=== PATIENT | female | born 1940 | race Caucasian/White ===

== ENCOUNTER 2020-05-24 09:13 | Outpatient (REF) | payer MEDICARE, SELFPAY ==
[2020-05-24 10:49] LABS: Estimated Average Glucose 160 mg/dL; Hemoglobin A1c % 7.2 %
== END 2020-05-24 09:14 | disposition home or self-care (01) ==
LOC: HO.10HDL 09:13
PROVIDERS: Absent Provider Internal Medicine; PCP Internal Medicine; Visit Provider Pediatrics
DX: E10.42 Type 1 diabetes mellitus with diabetic polyneuropathy (principal)
CPT/HCPCS: 83036

== ENCOUNTER 2020-08-25 11:15 | Outpatient (REF) | payer MEDICARE, SELFPAY ==
[2020-08-25 14:23] LABS: Estimated Average Glucose 174 mg/dL; Hemoglobin A1c % 7.7 %
== END 2020-08-25 11:16 | disposition home or self-care (01) ==
LOC: HO.10HDLR 11:15
PROVIDERS: Absent Provider Internal Medicine; Visit Provider Pediatrics
DX: E10.42 Type 1 diabetes mellitus with diabetic polyneuropathy (principal)
CPT/HCPCS: 36415; 83036

== ENCOUNTER 2020-11-23 11:37 | Outpatient (REF) | payer MEDICARE, SELFPAY ==
[2020-11-23 14:43] LABS: Estimated Average Glucose 163 mg/dL; Hemoglobin A1c % 7.3 %
== END 2020-11-23 11:38 | disposition home or self-care (01) ==
LOC: HO.10HDL 11:37
PROVIDERS: Visit Provider Pediatrics
DX: E10.42 Type 1 diabetes mellitus with diabetic polyneuropathy (principal)
CPT/HCPCS: 36415; 83036

== ENCOUNTER 2021-02-24 08:48 | Outpatient (RCR) | payer MEDICARE, SELFPAY | END 2021-03-08 15:09 | disposition home or self-care (01) | LOC: HO.WCC 08:48 | PROVIDERS: Visit Provider Surgery | DX: S81.811D Laceration without foreign body, right lower leg, subsequent encounter (principal) | CPT/HCPCS: 99213 ==

== ENCOUNTER 2021-02-24 14:26 | Outpatient (REF) | payer MEDICARE, SELFPAY ==
[2021-02-24 15:06] LABS: Estimated Average Glucose 166 mg/dL; Hemoglobin A1c % 7.4 %
== END 2021-02-24 14:27 | disposition home or self-care (01) ==
LOC: HO.LAB 14:26
PROVIDERS: Absent Provider Internal Medicine; PCP Internal Medicine; Visit Provider Pediatrics
DX: E10.42 Type 1 diabetes mellitus with diabetic polyneuropathy (principal)
CPT/HCPCS: 36415; 83036

== ENCOUNTER 2021-04-01 11:25 | Outpatient (REF) | payer MEDICARE, SELFPAY ==
--- NOTE | ~2021-04-01 | MM_ITS ---
EXAMINATION: MM SCREENING DIGITAL BREAST TOMOSYNTHESIS, BILATERAL CLINICAL INFORMATION: Screening. Asymptomatic. The lifetime risk of breast cancer based on the Tyrer-Cuzick Model is under 2%. COMPARISON: Mammography: 11/19/2018, 10/31/2017, 10/17/2016 TECHNIQUE: Digital breast tomosynthesis is performed in both the craniocaudal and mediolateral oblique views along with computer-aided detection (CAD). Synthesized 2D images are generated from the tomosynthesis. FINDINGS: There are scattered areas of fibroglandular density (ACR BI-RADS breast composition Category b). There are no significant masses, abnormal calcifications, or other abnormalities. Parenchymal pattern is similar to prior studies. No developing density. The axilla are unremarkable. MM/MM tomosynthesis screening BI IMPRESSION: No mammographic evidence of malignancy. ASSESSMENT: BI-RADS 1: Negative RECOMMENDATION: Routine annual mammography screening. This patient's information was entered into a reminder system with a target due date for their next mammogram.
== END 2021-04-01 11:26 | disposition home or self-care (01) ==
LOC: HO.MAMMO 11:25
PROVIDERS: Visit Provider Internal Medicine
DX: Z12.31 Encounter for screening mammogram for malignant neoplasm of breast (principal)
CPT/HCPCS: 77063; 77067

== ENCOUNTER 2021-05-19 07:31 | Outpatient (REF) | payer MEDICARE, SELFPAY ==
[2021-05-19 09:59] LABS: MANUAL DIFF FLAG NO
[2021-05-19 10:11] LABS: Basophils Absolute Auto 0.1 X10*3/uL (0.0-0.2); Basophils Percent Auto 1.3 % (0-2); Eosinophils Absolute Auto 0.2 X10*3/uL (0.0-0.4); Hematocrit 41.3 % (37-47); Hemoglobin 13.6 g/dl (12.0-16.0); Imm Gran Abs Auto 0.01 X10*3/uL (0.00-0.03); Imm Gran Pct Auto 0.3 % (0.0-0.4); Lymphocytes Percent Auto 27.4 % (20-40); Mean Corpuscular HGB Conc 32.9 g/dl (31.0-35.0); Mean Corpuscular Hemoglobin 31.3 pg (27.0-33.0); Mean Corpuscular Volume 95.2 fL (80-98); Mean Platelet Volume 10.7 fL (9.4-12.3); Monocytes Absolute Auto 0.5 X10*3/uL (0.1-1.2); Monocytes Percent Auto 12.4 % (2-11); Neutrophils Percent Auto 54.6 % (45-73); Platelet Count 171 X10*3/uL (160-400); Red Blood Count 4.34 X10*6/uL (4.20-5.50); Red Cell Distribution Width 11.9 % (11.0-16.0); White Blood Count 3.7 X10*3/uL (4.8-10.8)
[2021-05-19 10:12] LABS: Appearance Urine CLOUDY; Color Urine YELLOW; Glucose Urine UA NEG (NEG); Leukocyte Esterase Urine 1+ (NEG); Nitrite Urine NEG (NEG); PH 5.5 (5.0-8.0); Specific Gravity - Urine >= 1.030 (1.005-1.025); Urine Blood NEG (NEG); Urine Ketones NEG (NEG); Urine Protein NEG (NEG-TRACE)
[2021-05-19 10:30] LABS: Cholesterol 202 mg/dL; HDL Cholesterol 86 mg/dL; LDL Cholesterol Calculated 107 mg/dl; Triglycerides 48 mg/dL
[2021-05-19 10:41] LABS: Amorphous Sediment Urine 3+ /LPF; RBC Urine 0 /HPF (0); Squamous Epithelial Cell Urine 1+ /LPF
[2021-05-19 10:46] LABS: Creatinine Urine 213.43 mg/dL; Microalbum/Creatinine Ratio Ur 10.3 ug/mg cr
[2021-05-19 10:48] LABS: Thyroid Stimulating Hormone 3.54 uIU/mL (0.32-4.0); Vitamin D 25-OH Total 50.8 ng/mL (>30)
== END 2021-05-19 07:32 | disposition home or self-care (01) ==
LOC: HO.10HDL 07:31
PROVIDERS: Visit Provider Internal Medicine
DX: E10.9 Type 1 diabetes mellitus without complications (principal); K58.0 Irritable bowel syndrome with diarrhea
CPT/HCPCS: 36415; 80061; 81001; 82043; 82306; 84443; 85025

== ENCOUNTER 2021-05-25 13:51 | Outpatient (REF) | payer MEDICARE, SELFPAY ==
--- NOTE | 2021-05-26 15:12 | MHC.AU.ANO ---
Adult Audiological Evaluation Date of Visit: 05/25/21 [facility] Hand Used: Not Applicable Reason for Appointment: Audiologic re-evaluation to monitor hearing levels due to increased risk of progressive hearing loss related to Diabetes. Marylou also reports a new symptom of tinnitus which started in July 2020 following her 's passing. Has hearing been tested previously?: Yes Previous Hearing Test Results: 02/05/2019 [facility] Normal hearing thresholds at 250-1000 Hz, sloping to a moderate high frequency sensorineural hearing loss bilaterally with 92% speech understanding for the right ear at 60 dB HL and 96% for the left ear at 55 dB HL. Ear History: Bothersome Tinnitus/Ringing/Noises in Ears: Is perceived more in the head rather than specific ear(s). Medical History: Medical History: Diabetes, Irritable Bowel Syndrome Medication List: Novolog, Aspirin, Rosuvastatin Calcium, Psyllium, Vitamin D, Lutein-Zeaxanthin, Lorazepam (as needed) Otoscopy: Right Ear: Unremarkable Left Ear: Unremarkable Tympanometry: Tympanometry performed due to: To assess integrity of the middle ear system Right Ear: Normal Middle Ear System (Type A) Left Ear: Normal Middle Ear System (Type A) Otoacoustic Emissions Not performed at today's visit due to history of sensorineural hearing loss. Hearing Evaluation: Transducer(s) Used: Insert Earphones Bone Conduction Method: Conventional Audiometry Stimuli Used: Pure Tones Right Ear: Description of Hearing: Normal hearing thresholds at 250-1000 Hz, sloping to a moderately-severe high frequency sensorineural hearing loss. The right ear thresholds are 5-20 dB poorer than the left at 5996-2057 Hz. Left Ear: Description of Hearing: Normal hearing levels at 250-1000 Hz, sloping to a moderately-severe sensorineural hearing loss. Speech Recognition Threshold (SRT): Method Used: Monitored Live Voice Stimuli Used: Spondee Words Right Ear: 15 dB HL Left Ear: 10 dB HL Word Discrimination: Method: Recorded Lists Word Lists Used: NU-6 Right Ear: 92% at 55 dB HL Left Ear: 92% at 50 dB HL Comparison: Compared to most recent evaluation: Overall hearing thresholds for both ears have decreased 5-15 dB with stable speech discrimination ability bilaterally. Interpretation of Results: The new symptom of tinnitus is likely related to the combination of Marylou' stress since her 's passing and the increase in hearing loss. Discussed the theories of tinnitus. Marylou reports she is aware of the tinnitus, but it is not bothersome for her. Discussed hearing aids may reduce the perception of the tinnitus during the day when wearing them, but will not help when the aids are out of the ears at night. At this time, Marylou is not interested in trying hearing aids. Recommendations: Audiological re-evaluation in one year or sooner if hearing problems or tinnitus increase. Will send a reminder card. Diagnosis: Primary Diagnosis: H90.3 Bilateral Sensorineural Hearing Loss Secondary Diagnosis: H93.19 Tinnitus, Unspecified Ear Services Performed: Comprehensive Audiological Evaluation (CPT 70009) Tympanometry (CPT 11322) Signature: Provider: Ilia Duran, CCC-A
== END 2021-05-25 13:52 | disposition home or self-care (01) ==
LOC: HO.SH 13:51
PROVIDERS: Visit Provider Internal Medicine
DX: H90.3 Sensorineural hearing loss, bilateral (principal); H93.19 Tinnitus, unspecified ear
CPT/HCPCS: 92557; 92567

== ENCOUNTER 2021-11-29 12:17 | Outpatient (REF) | payer MEDICARE, SELFPAY ==
[2021-11-29 13:08] LABS: Estimated Average Glucose 169 mg/dL; Hemoglobin A1c % 7.5 %
== END 2021-11-29 12:18 | disposition home or self-care (01) ==
LOC: HO.LAB 12:17
PROVIDERS: Absent Provider Pediatrics; PCP Internal Medicine; Visit Provider Internal Medicine
DX: E10.9 Type 1 diabetes mellitus without complications (principal)
CPT/HCPCS: 36415; 83036

== ENCOUNTER 2022-02-20 13:42 | Emergency (ER) | payer MEDICARE, SELFPAY ==
--- NOTE | ~2022-02-20 | XR_ITS ---
EXAMINATION: XR CHEST CLINICAL INFORMATION: Cough, COVID. COMPARISON: 12/28/2017 chest and rib radiographs. TECHNIQUE: 2 views of the chest were obtained. FINDINGS: There is generalized hyperinflation, but the lungs are otherwise clear. There are no pleural effusions. The heart and mediastinal structures are unremarkable. XR/XR chest 2V IMPRESSION: No acute cardiopulmonary process.
[2022-02-20 15:26] VITALS: BP 151/76; PULSE 78; RESP 18; TEMP 37.6; O2SAT 99; BMI 21.9
[2022-02-20 15:45] LABS: MANUAL DIFF FLAG NO
[2022-02-20 15:48] LABS: Basophils Percent Auto 0.2 % (0-2); Hematocrit 41.4 % (37.0-47.0); Hemoglobin 13.9 g/dl (12.0-16.0); Imm Gran Abs Auto 0.02 X10*3/uL (0.00-0.03); Imm Gran Pct Auto 0.3 % (0.0-0.4); Lymphocytes Absolute Auto 0.9 X10*3/uL (1.2-4.9); Lymphocytes Percent Auto 15.2 % (20-40); Mean Corpuscular HGB Conc 33.6 g/dl (31.0-35.0); Mean Corpuscular Volume 92.4 fL (80.0-98.0); Mean Platelet Volume 10.1 fL (9.4-12.3); Monocytes Absolute Auto 0.8 X10*3/uL (0.1-1.2); Neutrophils Absolute Auto 4.3 x10*3/uL (2.0-8.3); Neutrophils Percent Auto 71.3 % (45-73); Platelet Count 126 X10*3/uL (160-400); Red Blood Count 4.48 X10*6/uL (4.20-5.50); Red Cell Distribution Width 12.2 % (11.0-16.0)
[2022-02-20 16:09] LABS: Alanine Aminotransferase 23 U/L (0-31); Albumin Level 4.1 g/dL (3.5-5.0); Alkaline Phosphatase 51 U/L (39-117); Anion Gap 15 (12-20); Aspartate Amino Transferase 28 U/L (5-31); Bilirubin Total 0.7 mg/dL (0.0-1.0); Blood Urea Nitrogen 18 mg/dL (9-16); Calcium 8.9 mg/dL (8.4-10.2); Carbon Dioxide 26 mmol/L (22-29); Chloride 99 mmol/L (96-108); Creatinine Clr Calc Pharmacy 40.5; Estimated Glomerular Filt Rate 57; Glucose Random 201 mg/dL (60-115); Potassium 4.5 mmol/L (3.3-5.1); Sodium 135 mmol/L (135-145); Total Protein 6.4 g/dL (6.5-8.0)
== END 2022-02-20 21:19 | disposition left against medical advice (07) ==
LOC: HO.ED 21:04
PROVIDERS: Emergency Provider Emergency Medicine; PCP Internal Medicine
DX: U07.1 COVID-19 (principal); Z79.899 Other long term (current) drug therapy
CPT/HCPCS: 36415; 71046; 80053; 85025; 99281; 99283

== ENCOUNTER 2022-03-07 14:23 | Outpatient (REF) | payer MEDICARE, SELFPAY ==
[2022-03-07 15:56] LABS: Estimated Average Glucose 163 mg/dL; Hemoglobin A1c % 7.3 %
== END 2022-03-07 14:24 | disposition home or self-care (01) ==
LOC: HO.LAB 14:23
PROVIDERS: Pediatrics; PCP Internal Medicine; Visit Provider Internal Medicine
DX: E10.9 Type 1 diabetes mellitus without complications (principal)
CPT/HCPCS: 36415; 83036

== ENCOUNTER 2022-04-07 11:20 | Outpatient (REF) | payer MEDICARE, SELFPAY ==
--- NOTE | ~2022-04-07 | MM_ITS ---
EXAMINATION: MM SCREENING DIGITAL BREAST TOMOSYNTHESIS, BILATERAL CLINICAL INFORMATION: Screening. Asymptomatic. The lifetime risk of breast cancer based on the Tyrer-Cuzick Model is 2%. COMPARISON: Mammography: 04/01/2021, 11/19/2018, 10/31/2017 TECHNIQUE: Digital breast tomosynthesis is performed in both the craniocaudal and mediolateral oblique views along with computer-aided detection (CAD). Synthesized 2D images are generated from the tomosynthesis. Additional right CC view is provided. FINDINGS: There are scattered areas of fibroglandular density (ACR BI-RADS breast composition Category b). There are no significant masses, abnormal calcifications, or other abnormalities. Parenchymal pattern is similar to prior studies. There is no developing density or architectural abnormality. The axilla and skin contours are unremarkable. No significant changes. MM/MM tomosynthesis screening BI IMPRESSION: No mammographic evidence of malignancy. ASSESSMENT: BI-RADS 1: Negative RECOMMENDATION: Routine annual mammography screening. This patient's information was entered into a reminder system with a target due date for their next mammogram.
--- NOTE | ~2022-04-07 | MM_ITS ---
EXAMINATION: BONE DENSITOMETRY CLINICAL INDICATION: Other specified disorders of bone density and structure. COMPARISON: Previous BD dated 08/20/2014 and baseline BD dated 12/25/2007. TECHNIQUE: Using a [employer] DXA System (software version: 13.1) manufactured by [employer], dual-energy x-ray absorptiometry was performed of the lumbar spine and left hip. The images are of good technical quality. Summary results are attached. FINDINGS: AP SPINE L1-L3 (excluding L4): The data of L1-L4 has been changed to exclude the L4 vertebral body, because degenerative changes at this level may cause overestimation of lumbar spine density. Current: BMD 0.819 g/cm2, Z-score -0.9, T-score -2.9, osteoporosis, 10.2% decrease from previous, 16.3% decrease from baseline (<5% change is not significant). Prior: BMD 0.912 g/cm2. Baseline: BMD 0.979 g/cm2. LEFT FEMUR, NECK: Current: BMD 0.727 g/cm2, Z-score 0.1, T-score -2.2, osteopenia. Prior: BMD 0.746 g/cm2. Baseline: BMD 0.792 g/cm2. LEFT FEMUR, TOTAL: Current: BMD 0.829 g/cm2, Z-score 0.8, T-score -1.4, osteopenia, 4.5% decrease from previous, 7.7% decrease from baseline (<5% change is not significant). Prior: BMD 0.868 g/cm2. Baseline: BMD 0.898 g/cm2. IDENTIFIED RISK FACTORS: Height loss, secondary osteoporosis, menopause. HISTORY OF FRACTURE: None listed. MEDICATIONS: Vitamin D. MM/XR DEXA axial skeleton IMPRESSION: 1. DIAGNOSIS: Osteoporosis based on the lowest T-score value of -2.9 in the lumbar spine applying World Health Organization criteria. 2. 10-YEAR FRACTURE RISK PREDICTION, FRAX: According to the guidelines, FRAX calculation should only be performed on patients in the osteopenia bone density category. Therefore, FRAX was not performed on this patient. 3. Treatment Recommendations: NOF guidelines recommend consideration for treatment in postmenopausal women and men age 50 and older presenting with the following: -A hip or vertebral (clinical or morphometric) fracture. -T-score less than or equal to -2.5 at the femoral neck or spine after appropriate evaluation to exclude secondary causes. -Low bone mass at the hip or spine and a 10-year fracture probability by FRAX of greater than or equal to 3% for hip fracture or greater than or equal to 20% for major osteoporotic fracture based on the [place] adapted WHO algorithm. 4. Other Recommendations: All treatment decisions require clinical judgment and consideration of individual patient factors, including patient preferences, comorbidities, previous drug use, risk factors not captured in the FRAX model (e.g. frailty, falls, vitamin D deficiency, increased bone turnover, interval significant decline in bone density) and possible under or overestimation of fracture risk by FRAX. Additional medical evaluation for secondary cause of low bone mineral density may be appropriate. FUTURE SCAN RECOMMENDATION: People with diagnosed cases of osteoporosis or at high risk for fracture should have regular bone mineral density tests. For patients eligible for Medicare, routine testing is allowed once every 2 years. The testing frequency can be increased to one year for patients who have rapidly progressing disease, those who are receiving or discontinuing medical therapy to restore bone mass, or have additional risk factors.
== END 2022-04-07 11:21 | disposition home or self-care (01) ==
LOC: HO.MAMMO 11:20
PROVIDERS: PCP Internal Medicine; Visit Provider Internal Medicine
DX: Z12.31 Encounter for screening mammogram for malignant neoplasm of breast (principal); Z13.820 Encounter for screening for osteoporosis; M85.88 Other specified disorders of bone density and structure, other site; Z78.0 Asymptomatic menopausal state
CPT/HCPCS: 77063; 77067; 77080

== ENCOUNTER → 2022-05-09 12:59 | Outpatient (BNVA) | payer MEDICARE, SELFPAY | PROVIDERS: PCP Internal Medicine; Visit Provider Internal Medicine Endocrinology, Diabetes & Metabolism | DX: M81.0 Age-related osteoporosis without current pathological fracture (principal) | CPT/HCPCS: 99202 ==

== ENCOUNTER 2022-06-08 08:06 | Outpatient (REF) | payer MEDICARE, SELFPAY ==
[2022-06-08 10:40] LABS: MANUAL DIFF FLAG NO
[2022-06-08 10:47] LABS: Basophils Absolute Auto 0.1 X10*3/uL (0.0-0.2); Basophils Percent Auto 1.2 % (0-2); Eosinophils Absolute Auto 0.1 X10*3/uL (0.0-0.4); Eosinophils Percent Auto 2.9 % (0-4); Hematocrit 43.2 % (37.0-47.0); Hemoglobin 14.2 g/dl (12.0-16.0); Imm Gran Abs Auto 0.01 X10*3/uL (0.00-0.03); Imm Gran Pct Auto 0.2 % (0.0-0.4); Lymphocytes Absolute Auto 1.4 X10*3/uL (1.2-4.9); Lymphocytes Percent Auto 32.5 % (20-40); Mean Corpuscular HGB Conc 32.9 g/dl (31.0-35.0); Mean Corpuscular Hemoglobin 31.1 pg (27.0-33.0); Mean Corpuscular Volume 94.7 fL (80.0-98.0); Mean Platelet Volume 10.2 fL (9.4-12.3); Monocytes Absolute Auto 0.5 X10*3/uL (0.1-1.2); Monocytes Percent Auto 11.5 % (2-11); Neutrophils Absolute Auto 2.2 x10*3/uL (2.0-8.3); Neutrophils Percent Auto 51.7 % (45-73); Platelet Count 183 X10*3/uL (160-400); Red Blood Count 4.56 X10*6/uL (4.20-5.50); Red Cell Distribution Width 12.2 % (11.0-16.0); White Blood Count 4.2 X10*3/uL (4.8-10.8)
[2022-06-08 10:54] LABS: Appearance Urine Clear; Color Urine Yellow; Glucose Urine UA Negative (Negative); Leukocyte Esterase Urine Moderate (2+) (Negative); Nitrite Urine Negative (Negative); Specific Gravity - Urine 1.025 (1.005-1.025); UMIC TRIGGER UA YES; Urine Blood Negative (Negative); Urine Ketones Trace mg/dL (Negative); Urine Protein Negative (Neg-Trace)
[2022-06-08 10:57] LABS: Bacteria Urine None Seen (None Seen); Hyaline Casts Urine 0-2 /LPF (0-2); RBC Urine 0-2 /HPF (0-2); WBC Urine 21-50 /HPF (0-5)
[2022-06-08 11:12] LABS: Creatinine Urine 202.26 mg/dL; Microalbum/Creatinine Ratio Ur 11.8 ug/mg cr
[2022-06-08 12:28] LABS: Estimated Average Glucose 151 mg/dL; Hemoglobin A1c % 6.9 %
[2022-06-08 14:16] LABS: Alanine Aminotransferase 20 U/L (0-31); Alkaline Phosphatase 57 U/L (39-117); Anion Gap 14 (12-20); Aspartate Amino Transferase 24 U/L (5-31); Bilirubin Total 0.7 mg/dL (0.0-1.0); Blood Urea Nitrogen 20 mg/dL (9-16); Carbon Dioxide 29 mmol/L (22-29); Chloride 103 mmol/L (96-108); Cholesterol 210 mg/dL; Estimated Glomerular Filt Rate 55; Glucose Fasting 159 mg/dL (60-99); HDL Cholesterol 85 mg/dL; LDL Cholesterol Calculated 113 mg/dl; Potassium 4.6 mmol/L (3.3-5.1); Sodium 141 mmol/L (135-145); Thyroid Stimulating Hormone 3.65 uIU/mL (0.32-4.0); Total Protein 6.2 g/dL (6.5-8.0); Triglycerides 60 mg/dL; Vitamin D 25-OH Total 58.9 ng/mL (>30)
== END 2022-06-08 08:07 | disposition home or self-care (01) ==
LOC: HO.10HDL 08:06
PROVIDERS: Absent Provider Pediatrics; Visit Provider Internal Medicine
DX: E10.9 Type 1 diabetes mellitus without complications (principal); K58.0 Irritable bowel syndrome with diarrhea; H91.93 Unspecified hearing loss, bilateral
CPT/HCPCS: 36415; 80053; 80061; 81001; 82043; 82306; 83036; 84443; 85025

== ENCOUNTER 2022-06-13 12:43 | Outpatient (REF) | payer MEDICARE, SELFPAY | END 2022-06-13 12:44 | disposition home or self-care (01) | LOC: HO.10HDLR 12:43 | PROVIDERS: Absent Provider Pediatrics; Visit Provider Internal Medicine | DX: Z13.89 Encounter for screening for other disorder (principal) ==

== ENCOUNTER 2022-08-09 13:56 | Outpatient (REF) | payer MEDICARE, SELFPAY | END 2022-08-09 13:57 | disposition home or self-care (01) | LOC: HO.SH 13:56 | PROVIDERS: Visit Provider Internal Medicine | DX: H90.3 Sensorineural hearing loss, bilateral (principal); H93.19 Tinnitus, unspecified ear | CPT/HCPCS: 92557; 92567 ==

== ENCOUNTER 2022-08-21 10:04 | Outpatient (REF) | payer MEDICARE, SELFPAY ==
[2022-08-21 11:08] LABS: Creatinine, mg/dL 94.84
[2022-08-21 12:24] LABS: Creatinine, 24Hr Urine 0.9 G/Day (1.0-2.0); Total Volume 24 Hour Urine 925 mL
[2022-08-23 19:48] LABS: Calcium, 24 Hr Urine 175 mg/24 h; Calcium/Creatinine Ratio 185 mg/g creat (30-275); Creatinine 24Hr Urine 0.94 g/24 h (0.50-2.15)
== END 2022-08-21 10:05 | disposition home or self-care (01) ==
LOC: HO.LNP 10:04
PROVIDERS: Visit Provider Internal Medicine Endocrinology, Diabetes & Metabolism
DX: M81.0 Age-related osteoporosis without current pathological fracture (principal)
CPT/HCPCS: 82340; 82570

== ENCOUNTER 2022-09-12 08:28 | Outpatient (REF) | payer MEDICARE, SELFPAY ==
[2022-09-12 11:01] LABS: Estimated Average Glucose 163 mg/dL; Hemoglobin A1c % 7.3 %
[2022-09-12 11:05] LABS: Phosphorus 3.7 mg/dL (2.7-4.5)
[2022-09-15 11:04] LABS: Prot Elec - Albumin 4.1 g/dL (3.8-4.8); Prot Elec - Alpha1 0.3 g/dL (0.2-0.3); Prot Elec - Alpha2 0.7 g/dL (0.5-0.9); Prot Elec - Beta 1 0.4 g/dL (0.4-0.6); Prot Elec - Beta 2 0.3 g/dL (0.2-0.5); Prot Elec - Gamma 0.7 g/dL (0.8-1.7); Prot Elec - Total Protein 6.4 g/dL (6.1-8.1)
== END 2022-09-12 08:29 | disposition home or self-care (01) ==
LOC: HO.10HDL 08:28
PROVIDERS: Absent Provider Internal Medicine; Referring Provider Pediatrics; Visit Provider Internal Medicine Endocrinology, Diabetes & Metabolism
DX: E10.9 Type 1 diabetes mellitus without complications (principal); M81.0 Age-related osteoporosis without current pathological fracture
CPT/HCPCS: 36415; 83036; 84100; 84165; 86335

== ENCOUNTER → 2022-09-13 09:18 | Outpatient (BNVA) | payer MEDICARE, SELFPAY | PROVIDERS: PCP Internal Medicine; Visit Provider Internal Medicine Endocrinology, Diabetes & Metabolism | DX: M81.0 Age-related osteoporosis without current pathological fracture (principal) | CPT/HCPCS: 99212 ==

== ENCOUNTER 2022-10-11 10:59 | Outpatient (REF) | payer MEDICARE, SELFPAY ==
--- NOTE | ~2022-10-11 | XR_ITS ---
EXAMINATION: XR CHEST CLINICAL INFORMATION: Fatigue, SOB, diabetes mellitus. COMPARISON: Chest 02/20/2022 TECHNIQUE: 2 views of the chest were obtained. FINDINGS: The lungs are well-expanded and clear. The heart size and pulmonary vascularity is normal. There is mild dextro scoliosis of dorsolumbar spine. No aggressive lytic or sclerotic process seen. XR/XR chest 2V IMPRESSION: Unremarkable chest exam..
[2022-10-11 11:09] LABS: MANUAL DIFF FLAG NO
[2022-10-11 12:01] LABS: Basophils Absolute Auto 0.1 X10*3/uL (0.0-0.2); Eosinophils Absolute Auto 0.1 X10*3/uL (0.0-0.4); Eosinophils Percent Auto 1.7 % (0-4); Hematocrit 43.6 % (37.0-47.0); Hemoglobin 14.3 g/dl (12.0-16.0); Imm Gran Abs Auto 0.01 X10*3/uL (0.00-0.03); Imm Gran Pct Auto 0.2 % (0.0-0.4); Lymphocytes Absolute Auto 1.3 X10*3/uL (1.2-4.9); Lymphocytes Percent Auto 25.4 % (20-40); Mean Corpuscular HGB Conc 32.8 g/dl (31.0-35.0); Mean Corpuscular Hemoglobin 31.1 pg (27.0-33.0); Mean Corpuscular Volume 94.8 fL (80.0-98.0); Mean Platelet Volume 10.6 fL (9.4-12.3); Monocytes Absolute Auto 0.5 X10*3/uL (0.1-1.2); Monocytes Percent Auto 9.9 % (2-11); Neutrophils Absolute Auto 3.2 x10*3/uL (2.0-8.3); Neutrophils Percent Auto 61.8 % (45-73); Platelet Count 206 X10*3/uL (160-400); Red Cell Distribution Width 12.1 % (11.0-16.0); White Blood Count 5.2 X10*3/uL (4.8-10.8)
[2022-10-11 13:09] LABS: Thyroid Stimulating Hormone 3.47 uIU/mL (0.32-4.0)
[2022-10-11 13:13] LABS: Anion Gap 13 (12-20)
[2022-10-11 13:17] LABS: Alanine Aminotransferase 24 U/L (0-31); Albumin Level 4.2 g/dL (3.5-5.0); Alkaline Phosphatase 75 U/L (39-117); Aspartate Amino Transferase 27 U/L (5-31); Bilirubin Total 0.9 mg/dL (0.0-1.0); Blood Urea Nitrogen 18 mg/dL (9-16); Calcium 9.3 mg/dL (8.4-10.2); Carbon Dioxide 28 mmol/L (22-29); Chloride 102 mmol/L (96-108); Estimated Glomerular Filt Rate 55; Glucose Random 246 mg/dL (60-115); Potassium 4.8 mmol/L (3.3-5.1); Sodium 138 mmol/L (135-145); Total Protein 6.4 g/dL (6.5-8.0)
== END 2022-10-11 11:00 | disposition home or self-care (01) ==
LOC: HO.XRAY 10:59
PROVIDERS: PCP Internal Medicine; Visit Provider Internal Medicine
DX: E10.9 Type 1 diabetes mellitus without complications (principal); R06.02 Shortness of breath; R53.83 Other fatigue; K58.0 Irritable bowel syndrome with diarrhea
CPT/HCPCS: 36415; 71046; 80053; 84443; 85025

== ENCOUNTER 2022-10-23 10:47 | Outpatient (REF) | payer MEDICARE, SELFPAY ==
--- NOTE | 2022-10-23 | PFT_ITS ---
FLOWS: 1. FEV1 97% of predicted at 1.81 L. 2. FVC 106% of predicted at 2.68 L. 3. FEV1 to FVC ratio of 0.68. 4. No bronchodilator response except in small to medium airways. LUNG VOLUMES: 1. Total lung capacity 100% of predicted at 5.09 L. 2. Residual volume 105% of predicted at 2.57 L. 3. Slow vital capacity 96% of predicted at 2.52 L. 4. Expiratory reserve volume 163% of predicted at 0.80 L. 5. Diffusion capacity is mildly decreased. IMPRESSION: Mild obstructive ventilatory defect with no bronchodilator response except in small to medium airways. Decreased diffusion capacity suggest emphysema. Fernandez Sparks MD AP/MODL / [id number]
== END 2022-10-23 10:48 | disposition home or self-care (01) ==
LOC: HO.RESP 10:47
PROVIDERS: PCP Internal Medicine; Visit Provider Internal Medicine
DX: R06.02 Shortness of breath (principal); R53.83 Other fatigue
CPT/HCPCS: 94060; 94727; 94729

== ENCOUNTER 2022-12-11 12:04 | Outpatient (REF) | payer MEDICARE, SELFPAY ==
[2022-12-11 13:41] LABS: Estimated Average Glucose 157 mg/dL; Hemoglobin A1c % 7.1 %
== END 2022-12-11 12:05 | disposition home or self-care (01) ==
LOC: HO.10HDL 12:04
PROVIDERS: Visit Provider Internal Medicine
DX: E10.9 Type 1 diabetes mellitus without complications (principal)
CPT/HCPCS: 36415; 83036

== ENCOUNTER 2023-03-14 09:48 | Outpatient (REF) | payer MEDICARE, SELFPAY ==
[2023-03-14 11:18] LABS: Estimated Average Glucose 146 mg/dL; Hemoglobin A1c % 6.7 % (<6.0)
== END 2023-03-14 09:49 | disposition home or self-care (01) ==
LOC: HO.LAB 09:48
PROVIDERS: Absent Provider Pediatrics; PCP Internal Medicine; Visit Provider Internal Medicine
DX: E10.9 Type 1 diabetes mellitus without complications (principal)
CPT/HCPCS: 36415; 83036

== ENCOUNTER 2023-04-18 11:33 | Outpatient (REF) | payer MEDICARE, SELFPAY | END 2023-04-18 11:34 | disposition home or self-care (01) | LOC: HO.MAMMO 11:33 | PROVIDERS: PCP Internal Medicine; Visit Provider Internal Medicine | DX: Z12.31 Encounter for screening mammogram for malignant neoplasm of breast (principal) | CPT/HCPCS: 77063; 77067 ==

== ENCOUNTER → 2023-04-18 11:45 | Outpatient (BNV) | payer MEDICARE, SELFPAY | PROVIDERS: PCP Internal Medicine; Visit Provider Radiology Diagnostic Radiology | DX: Z12.31 Encounter for screening mammogram for malignant neoplasm of breast (principal) | CPT/HCPCS: 77063; 77067 ==

== ENCOUNTER 2023-06-18 10:25 | Outpatient (REF) | payer MEDICARE, SELFPAY ==
[2023-06-18 11:11] LABS: Estimated Average Glucose 151 mg/dL; Hemoglobin A1c % 6.9 % (<6.0)
== END 2023-06-18 10:26 | disposition home or self-care (01) ==
LOC: HO.10HDL 10:25
PROVIDERS: Referring Provider Pediatrics; Visit Provider Internal Medicine
DX: E10.9 Type 1 diabetes mellitus without complications (principal)
CPT/HCPCS: 36415; 83036

== ENCOUNTER 2023-07-25 13:15 | Outpatient (AMB) | payer MEDICARE, SELFPAY ==
[2023-07-25 13:35] VITALS: BP 164/71; PULSE 75; BMI 22.7
--- NOTE | 2023-07-25 13:35 | MHC.OFFVIS ---
Intake Vital Signs 07/25/23 13:35 Height 5 ft 4 in Weight 132 lb BMI 22.7 BP 164/71 H Blood Pressure Location Rt brachial Position Sitting Pulse 75 Intake Visit Reasons: Anal prolapse Intake Note: This patient was referred by for anal prolapse assessment. Patient c/o; reports no rectal bleeding or pain, Hx anal muscosal prolapse. 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 Accompanied by: Self / Same As Patient Allergies No Known Allergies Allergy (Verified 07/25/23 13:35) Medication List - Last Reconciled 07/25/23 by Robin Cartagena MD aspirin (Adult Low Dose Aspirin) 81 mg PO DAILY blood sugar diagnostic As directed cholecalciferol (vitamin D3) 25 mcg PO DAILY doxycycline hyclate 100 mg PO BID 10 days insulin aspart U-100 25 - 40 units subcut DAILY lancets As directed lorazepam 0.5 mg PO DAILY PRN psyllium husk (Metamucil) 1 tbsp PO BID rosuvastatin 40 mg PO BEDTIME HPI Anal prolapse HPI Details 83-year-old female here for issues with stool leakage periodically. She had undergone mucosectomy for mucosal prolapse of the anal mucosa more than [address] Pope in [place]. She says she actually had done well for several years. However, for the past year or 2, she had noticed that she has to frequently wipe after having bowel movements as she notices that there is residual stool coming out of her anus. She also says that she does not have the same regularity with her bowel movements anymore and she has to go more frequently although she does not feel that she empties well. She denies any bleeding. She denies feeling any prolapse from her anus. She says that she has been using Konsyl as fiber supplement before and this seemed to have helped with consistency of her stools but this seems to be not working as well anymore either. She denies constipation. She also says that she has similar problems with the urinary incontinence as well. 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 Diabetes mellitus Osteoporosis Surgical History History of surgery History of arthroplasty of left knee History of appendectomy History of wisdom tooth extraction History of tonsillectomy and adenoidectomy Family History Father Cancer Mother Dementia Heart problem Maternal Aunt Breast cancer Social History Household Members: None Alcohol intake: current Alcohol intake frequency: holidays/special occasions only Alcohol type: wine Patient Tobacco Use Status: Never used Tobacco Review of Systems Const Denies chills and Denies fever(s) Card Denies chest pain, Denies dyspnea and Denies dyspnea on exertion Resp Denies cough, Denies dyspnea and Denies dyspnea on exertion GI Denies hematochezia and Denies change in bowel habits Denies hematuria Musc Denies back pain and Denies limited range of motion Neuro Denies focal weakness and Denies convulsions Psych Denies depression and Denies mood swings Physical Exam Vital Signs: Last Vital Signs Pulse 75 07/25/23 13:35 BP 164/71 H 07/25/23 13:35 BMI result Body Mass Index 22.7 Const General: comfortable and no acute distress Orientation/consciousness: patient oriented x3 Neck Neck: Yes no lymphadenopathy Resp Auscultation: clear to auscultation bilaterally Cardio Rhythm: regular rhythm GI Other: Digital exam shows a lax sphincter tone on both resting and squeeze pressures, no obvious sphincter defect prolapse noted Palpation (GI): Soft to palpation, nontender and no guarding Neuro General: patient oriented x3 Office Procedures Anoscopy She was in vinnie-knife position. The anoscope was gently inserted. A full examination of the anal canal was done. She did have some internal external hemorrhoids but there were no lesions. There was no bleeding. Again, there was lax sphincter tone. There was no mucosal irregularity. 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 This may be secondary to her previous anal surgery, advanced age, as well as a history of vaginal delivery of 210 lb babies when she was younger. I do not appreciate any obvious sphincter defect at this time I have agreed to try using Metamucil instead of Konsyl and to do this twice a day. I can see her in the office in about 3 months to see how she is doing. 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
== END 2023-07-25 14:03 | disposition home or self-care (01) ==
PROVIDERS: PCP Internal Medicine; Referring Provider Internal Medicine; Visit Provider Surgery
DX: R15.9 Full incontinence of feces (principal); K64.8 Other hemorrhoids
CPT/HCPCS: 46600; 99203

== ENCOUNTER → 2023-07-25 13:15 | Outpatient (BNVA) | payer MEDICARE, SELFPAY | PROVIDERS: PCP Internal Medicine; Referring Provider Internal Medicine; Visit Provider Surgery | DX: R15.9 Full incontinence of feces (principal) | CPT/HCPCS: 46600; 99202 ==

== ENCOUNTER 2023-08-10 08:47 | Outpatient (REF) | payer MEDICARE, SELFPAY ==
[2023-08-10 10:29] LABS: MANUAL DIFF FLAG NO
[2023-08-10 10:41] LABS: Basophils Percent Auto 0.9 % (0-2); Eosinophils Absolute Auto 0.2 X10*3/uL (0.0-0.4); Eosinophils Percent Auto 4.3 % (0-4); Hematocrit 43.6 % (37.0-47.0); Hemoglobin 14.1 g/dl (12.0-16.0); Lymphocytes Absolute Auto 1.2 X10*3/uL (1.2-4.9); Lymphocytes Percent Auto 27.5 % (20-40); Mean Corpuscular HGB Conc 32.3 g/dl (31.0-35.0); Mean Corpuscular Hemoglobin 30.7 pg (27.0-33.0); Mean Corpuscular Volume 94.8 fL (80.0-98.0); Mean Platelet Volume 10.7 fL (9.4-12.3); Monocytes Absolute Auto 0.4 X10*3/uL (0.1-1.2); Neutrophils Absolute Auto 2.4 x10*3/uL (2.0-8.3); Neutrophils Percent Auto 57.3 % (45-73); Platelet Count 168 X10*3/uL (160-400); White Blood Count 4.2 X10*3/uL (4.8-10.8)
[2023-08-10 13:07] LABS: Alanine Aminotransferase 21 U/L (0-31); Alkaline Phosphatase 59 U/L (39-117); Anion Gap 10 (12-20); Aspartate Amino Transferase 26 U/L (5-31); Bilirubin Total 0.6 mg/dL (0.0-1.0); Blood Urea Nitrogen 20 mg/dL (9-16); Calcium 9.2 mg/dL (8.4-10.2); Carbon Dioxide 30 mmol/L (22-29); Chloride 106 mmol/L (96-108); Cholesterol 172 mg/dL (<200); Estimated Glomerular Filt Rate 56; Glucose Fasting 160 mg/dL (60-99); HDL Cholesterol 81 mg/dL (>40); LDL Cholesterol Calculated 83 mg/dL (<100); Potassium 4.4 mmol/L (3.3-5.1); Sodium 142 mmol/L (135-145); Total Protein 6.5 g/dL (6.5-8.0); Triglycerides 40 mg/dL (<150)
[2023-08-10 13:35] LABS: Thyroid Stimulating Hormone 2.99 uIU/mL (0.32-4.0); Vitamin D 25-OH Total 62.1 ng/mL (>30)
[2023-08-10 14:04] LABS: Appearance Urine Turbid; Color Urine Dark Yellow; Glucose Urine UA Negative (Negative); Leukocyte Esterase Urine Small (1+) (Negative); Nitrite Urine Negative (Negative); Specific Gravity - Urine 1.025 (1.005-1.025); UMIC TRIGGER UA YES; Urine Blood Negative (Negative); Urine Ketones Trace mg/dL (Negative); Urine Protein 30 (1+) mg/dL (Neg-Trace)
[2023-08-10 14:21] LABS: Bacteria Urine Trace (None Seen); Calcium Oxalate Crystals Urine Present; RBC Urine 0-2 /HPF (0-2)
[2023-08-10 15:21] LABS: Creatinine Urine 241.42 mg/dL; Microalbum/Creatinine Ratio Ur 41.8 ug/mg cr (<30)
== END 2023-08-10 08:48 | disposition home or self-care (01) ==
LOC: HO.10HDL 08:47
PROVIDERS: Visit Provider Internal Medicine
DX: E10.9 Type 1 diabetes mellitus without complications (principal); M81.0 Age-related osteoporosis without current pathological fracture; F41.9 Anxiety disorder, unspecified; K62.2 Anal prolapse; K58.0 Irritable bowel syndrome with diarrhea
CPT/HCPCS: 36415; 80053; 80061; 81001; 82043; 82306; 82570; 84443; 85025

== ENCOUNTER 2023-09-18 14:37 | Outpatient (REF) | payer MEDICARE, SELFPAY ==
[2023-09-18 16:13] LABS: Estimated Average Glucose 148 mg/dL; Hemoglobin A1c % 6.8 % (<6.0)
== END 2023-09-18 14:38 | disposition home or self-care (01) ==
LOC: HO.LAB 14:37
PROVIDERS: PCP Internal Medicine; Visit Provider Pediatrics
DX: E10.42 Type 1 diabetes mellitus with diabetic polyneuropathy (principal)
CPT/HCPCS: 36415; 83036

== ENCOUNTER 2023-11-13 13:53 | Outpatient (AMB) | payer MEDICARE, SELFPAY ==
--- NOTE | 2023-11-13 14:10 | MHC.OFFVIS ---
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 Patient reports her pain and limited ROM began about a month ago and is localized at the base of her CMC joint and wrist. She has a hx of DM which causes her to have numbness in her finger tips but she denies numbness and tingling from her current complaint. She expresses she applies CBD cream at night to help with mild relief. She states she called her PCP for a cortisone injection who referred her to [facility] for further evaluation. 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 She complains of radial-sided wrist pain & pain at the base of her thumb. She says this is worse with pinching or gripping activities, along with some wrist motion. She says this has been present for at least 1 month. She says this pain has been difficult as she is in the process of moving so she has been lifting & moving boxes She has found mild relief from using a CBD cream. She says her PCP referred her here to discuss a possible steroid injection. She has a hx of osteoporosis & diabetic neuropathy. Her diabetes is well-controlled. 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 Diabetes mellitus Osteoporosis Surgical History History of surgery History of arthroplasty of left knee History of appendectomy History of wisdom tooth extraction History of tonsillectomy and adenoidectomy Family History Father Cancer Mother Dementia Heart problem Maternal Aunt Breast cancer Social History Household Members: None Alcohol intake: current Alcohol intake frequency: holidays/special occasions only Alcohol type: wine Patient Tobacco Use Status: Never used Tobacco Review of Systems Const All systems reviewed & are unremarkable except as noted in HPI and below Physical Exam Const General: cooperative, healthy appearing and no acute distress Orientation/consciousness: patient oriented x3 HEENT Head: Yes normocephalic and Yes atraumatic Eyes EOM: EOMs intact bilaterally Resp Effort & Inspection: normal respiratory effort and able to speak in complete sentences Cardio Jugular venous distension: no JVD Skin General skin exam: turgor normal Rashes: no rashes Neuro General: patient oriented x3 Extrem Other: Evaluation of Left Upper Extremity: The patient is alert, oriented, and in no acute distress Neuro: Median, Ulnar, Radial nerves motor and sensory intact and sensation is normal to the tips of all digits Vascular: Cap refill brisk ROM: She can make a fist and extend all her digits No locking or catching Skin: No lacerations or abrasions. General: No Ecchymosis. No Erythema or evidence of infection. Tender over the 1st dorsal compartment Positive Alanna test on the left Negative Alanna test on the right Mild swelling over the 1st dorsal compartment No tenderness over the basal joint Radiographs: 3 views of the left hand were taken and viewed by me today in clinic. They show no fractures or dislocations. She has some early basal joint osteoarthritis. Psych Appearance: grossly normal Affect: normal affect Attitude: cooperative Office Procedures Fracture Care Details: No fracture, injection Fracture Billing Code: Fracture Billing Code Assessment & Plan Assessment & Plan (1) De Quervain's tenosynovitis, left: Code(s): M65.4 - Radial styloid tenosynovitis [de Quervain] Category: Medical (2) Diabetes mellitus: Code(s): E11.9 - Type 2 diabetes mellitus without complications Category: Medical (3) Osteoporosis: Code(s): M81.0 - Age-related osteoporosis without current pathological fracture Category: Medical Plan Assessment & Plan: 1. Left De Quervain's tenosynovitis Positive Alanna test I educated her about this condition I discussed operative and non-operative treatment options The patient would like to proceed with an injection I discussed activity modification, they should limit or avoid any heavy or repetitive pinching or gripping activities She was fitted for a comfort cool brace to wear with daily activities Injection #1: The risks and benefits of a steroid injection including but not limited to risk of damage to blood vessels, nerves, tendons, infection, skin bleaching, failure to improve symptoms, increased pain, and possible need for further injections or other intervention were discussed with the patient and the patient wishes to proceed with the steroid injection. Once consent was obtained, I sterilely prepped the area over the 1st dorsal compartment of the Left thumb. I then injected the 1st dorsal compartment with a combination of 1 mL of dexamethasone (4mg/ml), and 1% lidocaine. The patient tolerated the procedure well with no complications and good resolution of their symptoms prior to leaving clinic. If the patient continues to have pain 6-8 weeks following this injection, they may call to schedule appointment to discuss alternative treatment options She will follow up prn Scribed for Meghan Valladares MD by Chadwick Valdez, durable medical equipment technician, on 11/13/23 at 2:40 PM, EST. Orders: Orders XR wrist LT min 3V Today M25.532 - Pain in left wrist Coding Level of Care Code New Pt Level 3 (98044) Diagnoses De Quervain's tenosynovitis, left M65.4 Diabetes mellitus E11.9 Osteoporosis M81.0 CPT Codes Fracture Care - Fracture Billing Code: Fracture Billing Code ([id number])
== END 2023-11-13 15:19 | disposition home or self-care (01) ==
PROVIDERS: PCP Internal Medicine; Visit Provider Orthopaedic Surgery
DX: M65.4 Radial styloid tenosynovitis [de Quervain] (principal); E11.9 Type 2 diabetes mellitus without complications; M81.0 Age-related osteoporosis without current pathological fracture
CPT/HCPCS: 20550; 99203

== ENCOUNTER 2023-11-13 13:53 | Outpatient (REF) | payer MEDICARE, SELFPAY ==
--- NOTE | ~2023-11-13 | XR_ITS ---
EXAMINATION: XR WRIST, LEFT CLINICAL INFORMATION: Pain in left wrist. COMPARISON: None available. TECHNIQUE: PA, lateral, and oblique views of the left wrist. FINDINGS: The bones are diffusely demineralized. Moderate degenerative changes in the first carpometacarpal joint with joint space narrowing and hypertrophic change. Sclerotic focus overlies the middle phalanx of the incompletely imaged fifth digit. Mild degenerative changes in the IP joint of the thumb and first MCP joint. XR/XR wrist LT min 3V IMPRESSION: 1. Moderate degenerative changes first carpometacarpal joint. 2. Sclerotic focus overlies the middle phalanx of the incompletely imaged fifth digit. Dedicated views of the fifth digit recommended. 3. Bones are diffusely demineralized, limiting evaluation. No displaced fracture appreciated. Recommend follow up imaging in 10-14 days if fracture is suspected.
== END 2023-11-13 13:54 | disposition home or self-care (01) ==
LOC: HO.HOSX 13:53
PROVIDERS: PCP Internal Medicine; Visit Provider Orthopaedic Surgery
DX: M65.4 Radial styloid tenosynovitis [de Quervain] (principal)
CPT/HCPCS: 25500; 73110; 99202; J1100

== ENCOUNTER 2024-02-27 08:40 | Outpatient (AMB) | payer MEDICARE, SELFPAY ==
--- NOTE | 2024-02-27 08:45 | MHC.OFFVIS ---
Vital Signs 02/27/24 08:45 Height 5 ft 4 in Intake Visit Reasons: Ov - left De Quervain, last inj 11/13/23 Intake Note: Marylou is a 83 yo right hand dominant female who presents today for follow up evaluation of left De Quervain. Patient reports last injection, 11/13/23, did not provide relief. She states she does not wish to repeat injections today. Allergies No Known Allergies Allergy (Verified 02/27/24 08:46) HPI HPI Ov - left De Quervain, last inj 11/13/23: Details: Marylou is an 83 year old right hand dominant diabetic woman who returns to discuss her left De Quervain's tenosynovitis, S/P injection on 11/13/23 She complains of radial-sided wrist pain & pain at the base of her thumb. She says this is worse with pinching or gripping activities, along with some wrist motion. She says she found no relief from her previous injection, and is not interested in a repeat one. She has been wearing her comfort cool brace with some relief. She has found mild relief from using a CBD cream. She has a hx of osteoporosis & diabetic neuropathy. Her diabetes is well-controlled. 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 Diabetes mellitus Osteoporosis Surgical History History of surgery History of arthroplasty of left knee History of appendectomy History of wisdom tooth extraction History of tonsillectomy and adenoidectomy Family History Father Cancer Mother Dementia Heart problem Maternal Aunt Breast cancer Social History (Updated 02/27/24 @ 08:48 by JEFFY Ovalles) Household Members: None Alcohol intake: current Alcohol intake frequency: holidays/special occasions only Alcohol type: wine Patient Tobacco Use Status: Never used Tobacco Current occupation: rt handed Review of Systems Const All systems reviewed & are unremarkable except as noted in HPI and below Physical Exam Const General: no acute distress and alert Orientation/consciousness: patient oriented x3 Neuro General: patient oriented x3 Extrem Other: Evaluation of Left Upper Extremity: The patient is alert, oriented, and in no acute distress Neuro: Median, Ulnar, Radial nerves motor and sensory intact and sensation is normal to the tips of all digits Vascular: Cap refill brisk ROM: She can make a fist and extend all her digits No locking or catching Tender over the left 1st dorsal compartment Positive Alanna test on the left Negative Alanna test on the right Mild swelling over the 1st dorsal compartment, and I can actually visualize the thickening over the 1st dorsal compartment No tenderness over the basal joint Psych Appearance: grossly normal Affect: normal affect Attitude: cooperative Assessment & Plan Assessment & Plan (1) De Quervain's tenosynovitis, left: Code(s): M65.4 - Radial styloid tenosynovitis [de Quervain] Category: Medical (2) Diabetes mellitus: Code(s): E11.9 - Type 2 diabetes mellitus without complications Category: Medical (3) Osteoporosis: Code(s): M81.0 - Age-related osteoporosis without current pathological fracture Category: Medical Plan Assessment & Plan: 1. Left De Quervain's tenosynovitis, S/P injection Date of Injection: 11/13/23 Positive Alanna test I educated her about this condition I discussed operative and non-operative treatment options The patient would like to proceed with surgery I discussed activity modification, they should limit or avoid any heavy or repetitive pinching or gripping activities She will continue to wear her comfort cool brace with daily activities The risks and benefits of operative treatment were discussed with the patient and the patient wishes to proceed with surgery. These risks include, but are not limited to risk of damage to blood vessels, nerves, tendons, infection, recurrence, incomplete relief of preoperative symptoms, persistent pain, possible need for further surgery and the risks associated with regional blocks and anesthesia. The plan is to take the patient to the operating room sometime in the next few weeks for the following procedures: 1. Left 1st dorsal compartment, under local All of the preoperative paperwork including the consent was reviewed today. All the patient's questions were answered. The patient understands that they will be contacted by our surgery center administrator soon to schedule this procedure. She would like to be placed on the cancellation list to have an earlier surgery, if possible. She denies blood thinners, asthma, heart, lung, kidney issues She is a Diabetic, her most recent HgA1c was 6.8% on 09/18/23. Scribed for Meghan Valladares MD by Chadwick Valdez, regional medical director, on 02/27/24 at 9:00 AM, EST. Scribe Plan - Not visible on output: Scribed for Meghan Valladares MD by Chadwick Valdez, regional medical director, on [ ] at [ ], EST. Coding Level of Care Code Est Pt Level 4 (35645) Diagnoses De Quervain's tenosynovitis, left M65.4 Diabetes mellitus E11.9 Osteoporosis M81.0
== END 2024-02-27 09:21 | disposition home or self-care (01) ==
PROVIDERS: PCP Internal Medicine; Visit Provider Orthopaedic Surgery
DX: M65.4 Radial styloid tenosynovitis [de Quervain] (principal); E11.9 Type 2 diabetes mellitus without complications; M81.0 Age-related osteoporosis without current pathological fracture
CPT/HCPCS: 99214

== ENCOUNTER → 2024-02-27 08:40 | Outpatient (BNVA) | payer MEDICARE, SELFPAY | PROVIDERS: PCP Internal Medicine; Visit Provider Orthopaedic Surgery | DX: Z01.818 Encounter for other preprocedural examination (principal); M65.4 Radial styloid tenosynovitis [de Quervain]; M81.0 Age-related osteoporosis without current pathological fracture; E11.9 Type 2 diabetes mellitus without complications | CPT/HCPCS: 99212 ==

== ENCOUNTER 2024-04-21 12:20 | Day surgery (SDC) | payer MEDICARE, SELFPAY ==
[2024-04-21 13:25] VITALS: BP 138/59; PULSE 58; RESP 12; TEMP 36.4; O2SAT 98; BMI 23.2
--- NOTE | 2024-04-21 13:46 | MHC.SHP ---
Pre-Procedural Eval Section A - 24 Hr Update-Section A only Date of Service: 04/21/24 The patient is an INPATIENT: No Changes since office visit: No Cold of Flu in the past 2 weeks, No New Medical Problems, No Changes in Medication and No Patient answered all questions The patient has been examined within 24 hours of the surgical procedure. The History & Physical has been completed within 30 days and I have reviewed it.: Yes Section B - Complete if H&P > 30 days Chief Complaint: Radial styloid tenosynovitis [de Quervain] Allergies: Allergies Allergy/AdvReac Type Severity Reaction Status Date / Time No Known Allergies Allergy Verified 04/21/24 13:26 Plan Diagnosis/Plan: Unchanged I have reviewed the history and physical and performed a pertinent physical examination on my patient. No changes have occurred unless specified. Time Spent With Patient Time: Total time managing care of this patient today ____ minutes.
--- NOTE | 2024-04-21 13:47 | P.OP_ITS ---
Operative Note Operative Note Date of Service: 04/21/24 Narrative: Operative Note Preop diagnosis: 1. Left DeQuervain's tenosynovitis Postop diagnosis: 1. Left DeQuervain's tenosynovitis Procedure: 1. Left 1st dorsal compartment release Surgeon: Meghan Valladares MD Electroencephalographic Technologist: None Anesthesia: local block using 1% lidocaine with epinephrine Findings: Thickened 1st dorsal compartment. [ ] EBL: Less than 5 mL Tourniquet time: None Specimens: None Complications: None Disposition: Brought to recovery room in stable condition Plan: Follow-up for 7-10 days for wound check and suture removal Indications: The patient is 83 years old, with left DeQuervain's tenosynovitis that has been unresponsive to nonoperative management. The risks and benefits of operative treatment including but not limited to risk of damage to blood vessels, nerves, tendons, infection, persistent pain, persistent symptoms, recurrence or possible need for additional surgery were discussed with the patient and the patient wishes to proceed with surgery. Procedure: Once consent was obtained a local block was performed in the preop area using a combination of 1% lidocaine with epinephrine. The patient was then brought back to the operating suite and placed on the operative table in supine position. A tourniquet was applied to the proximal aspect of the left upper extremity and the limb was prepped and draped in a standard surgical fashion. Once assured that we had a good block, a 1.5 cm longitudinal incision was made centered over the 1st dorsal compartment as it passed over the radial styloid of the left wrist. The incision was made through the skin to the subcutaneous tissues using a #15 blade. Careful dissection was made down to the level of the 1st dorsal compartment using tenotomy scissors, with care being taken to protect the nearby branches of the superficial radial nerve. Once the 1st dorsal compartment was exposed, A longitudinal incision was made in the 1st dorsal compartment 1st using a #15 blade, then using tenotomy scissors under direct visualization. The 1st dorsal compartment was noted to be thickened. Following our release, we saw smooth gliding abductor pollicis longus and extensor pollicis brevis tendons. Once satisfied with our 1st dorsal compartment release the wound was copiously irrigated with normal saline and hemostasis was obtained with a brief period of local pressure. The subcutaneous layer was clos ed with some 4-0 Vicryl suture, and the skin edges were reapproximated with some 5.0 nylon suture material. A sterile dressing was applied. The patient appears to have tolerated the procedure well and with no complications. All digits were well vascularized at the conclusion of the case.
[2024-04-21 15:27] VITALS: BP 145/62; PULSE 56; RESP 16; O2SAT 97
== END 2024-04-21 15:31 | disposition home or self-care (01) ==
PROVIDERS: PCP Internal Medicine; Visit Provider Orthopaedic Surgery
PROC: (CPT 25000; principal; 2024-04-21 13:50)
DX: M65.4 Radial styloid tenosynovitis [de Quervain] (principal); M25.531 Pain in right wrist; M81.0 Age-related osteoporosis without current pathological fracture; R15.1 Fecal smearing; E11.40 Type 2 diabetes mellitus with diabetic neuropathy, unspecified; Z79.4 Long term (current) use of insulin; Z98.890 Other specified postprocedural states
CPT/HCPCS: 25000; J0171

== ENCOUNTER → 2024-04-21 12:20 | Outpatient (BNV) | payer MEDICARE, SELFPAY | PROVIDERS: PCP Internal Medicine; Visit Provider Orthopaedic Surgery | DX: M65.4 Radial styloid tenosynovitis [de Quervain] (principal) | CPT/HCPCS: 25000 ==

== ENCOUNTER 2024-04-28 09:51 | Outpatient (REF) | payer MEDICARE, SELFPAY ==
--- NOTE | ~2024-04-28 | MM_ITS ---
EXAMINATION: MM SCREENING DIGITAL BREAST TOMOSYNTHESIS, BILATERAL CLINICAL INFORMATION: Screening. Asymptomatic. COMPARISON: Mammography: Comparison is made with available priors TECHNIQUE: Digital breast mammography with tomosynthesis is performed in both the craniocaudal and mediolateral oblique views along with computer-aided detection (CAD). FINDINGS: The breasts are heterogeneously dense, which may obscure small masses (ACR BI-RADS breast composition Category c). There are no significant masses, abnormal calcifications, or other abnormalities. MM/MM tomosynthesis screening BI IMPRESSION: No mammographic evidence of malignancy. ASSESSMENT: BI-RADS BI-RADS 1 - Negative RECOMMENDATION: Routine annual mammography screening. 1 year F/U This examination should not preclude the clinical evaluation of a suspicious palpable abnormality. This patient's information was entered into a reminder system with a target due date for their next mammogram. Electronically signed by: Khloe Dent DO 05/09/2024 09:51 AM EDT
== END 2024-04-28 09:52 | disposition home or self-care (01) ==
LOC: HO.MAMMO 09:51
PROVIDERS: PCP Internal Medicine; Visit Provider Internal Medicine
DX: Z12.31 Encounter for screening mammogram for malignant neoplasm of breast (principal)
CPT/HCPCS: 77063; 77067

== ENCOUNTER → 2024-04-28 10:00 | Outpatient (BNV) | payer MEDICARE, SELFPAY | PROVIDERS: PCP Internal Medicine; Visit Provider Internal Medicine | DX: Z12.31 Encounter for screening mammogram for malignant neoplasm of breast (principal) | CPT/HCPCS: 77063; 77067 ==

== ENCOUNTER 2024-05-06 14:29 | Outpatient (AMB) | payer MEDICARE, SELFPAY ==
--- NOTE | 2024-05-06 14:53 | MHC.OFFVIS ---
Vital Signs 05/06/24 14:54 Height 5 ft 4 in Weight 130 lb BMI 22.3 Handedness Right Intake Visit Reasons: PO LT 1st DC release 04/21/24 AR Intake Note: Marylou is an 83 year old right hand dominant female who presents today post operatively s/p left 1st dorsal compartment release done 04/21/[address] Valladares. Patient reports soreness mainly because she has been using her hand, she admits she knows she should not be using her hand. She has not been taking any medication for pain. Patient denies drainage from incision site. Denies numbness, tingling, or finger locking. Sutures removed in office today and steri strips applied. Allergies No Known Allergies Allergy (Verified 05/06/24 14:54) HPI HPI PO LT 1st DC release 04/21/24 AR: Details: Marylou is an 83 year old right hand dominant diabetic woman who returns S/P 1st dorsal compartment release, DOS: 04/21/24 She says she is doing well overall. She has some pain in her radial wrist and near her incision, but she says she has been overusing her hand & lifting heavier things than she probably should be . She was recently at a public [employer] and checked out several books, which was heavy for her. She is going to try and better modify her activities to let herself rest. She does say she feels much better than prior to surgery. She has a hx of osteoporosis & diabetic neuropathy. Her diabetes is well-controlled. 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 Diabetes mellitus Osteoporosis Surgical History History of surgery History of arthroplasty of left knee History of appendectomy History of wisdom tooth extraction History of tonsillectomy and adenoidectomy Family History Father Cancer Mother Dementia Heart problem Maternal Aunt Breast cancer Social History Household Members: None Alcohol intake: current Alcohol intake frequency: holidays/special occasions only Alcohol type: wine Patient Tobacco Use Status: Never used Tobacco Current occupation: rt handed Review of Systems Const All systems reviewed & are unremarkable except as noted in HPI and below Physical Exam Vital Signs: BMI result Body Mass Index 22.3 Const General: no acute distress and alert Orientation/consciousness: patient oriented x3 Neuro General: patient oriented x3 Extrem Other: The patient was alert oriented and in no acute distress The incision is healing well with no erythema drainage or evidence of infection. Sutures removed and Steri-Strips applied She can make a fist and extend all her digits No locking or catching Improved and less painful Alanna test today in clinic Sensation is intact Cap refill is brisk Psych Appearance: grossly normal Affect: normal affect Attitude: cooperative Assessment & Plan Assessment & Plan (1) De Quervain's tenosynovitis, left: Code(s): M65.4 - Radial styloid tenosynovitis [de Quervain] Category: Medical (2) Diabetes mellitus: Code(s): E11.9 - Type 2 diabetes mellitus without complications Category: Medical Plan Assessment & Plan: 1. Left De Quervain's tenosynovitis, S/P release DOS: 04/21/24 Improved and less painful Alanna test today in clinic The patient appears to be doing well post-operatively I educated her about the post-operative course I explained the signs and symptoms of infection, if the patient develops any new or worsening erythema, drainage, pain, or warmth they should contact the clinic or attend the ED. I discussed activity modifications, she is to lift nothing heavier than a cellphone for the next 4 weeks She will perform gentle ROM exercises at home She should avoid any underwater activities for the next 5 days She should gently massage about the incision site to reduce the risk of hypersensitivity She can follow up prn Scribed for Meghan Valladares MD by nancy Calhoun scribe, on 05/06/24 at 3:00 PM, EST. Scribe Plan - Not visible on output: Scribed for Meghan Valladares MD by nancy Calhoun scribe, on [ ] at [ ], EST. Coding Level of Care Code Global (20532) Diagnoses De Quervain's tenosynovitis, left M65.4 Diabetes mellitus E11.9
[2024-05-06 14:54] VITALS: BMI 22.3
== END 2024-05-06 15:06 | disposition home or self-care (01) ==
PROVIDERS: PCP Internal Medicine; Visit Provider Orthopaedic Surgery
DX: M65.4 Radial styloid tenosynovitis [de Quervain] (principal); E11.9 Type 2 diabetes mellitus without complications
CPT/HCPCS: 99024

== ENCOUNTER → 2024-05-06 14:29 | Outpatient (BNVA) | payer MEDICARE, SELFPAY | PROVIDERS: PCP Internal Medicine; Visit Provider Orthopaedic Surgery | DX: M65.4 Radial styloid tenosynovitis [de Quervain] (principal); E11.9 Type 2 diabetes mellitus without complications | CPT/HCPCS: 99212 ==

== ENCOUNTER 2024-06-11 10:45 | Outpatient (REF) | payer MEDICARE, SELFPAY ==
[2024-06-13 01:59] LABS: CRP High Sensitivity 1.9 mg/L
== END 2024-06-11 10:46 | disposition home or self-care (01) ==
LOC: HO.LAB 10:45
PROVIDERS: PCP Internal Medicine; Visit Provider Internal Medicine
DX: E10.9 Type 1 diabetes mellitus without complications (principal)
CPT/HCPCS: 36415; 86140; 86141

== ENCOUNTER 2024-07-11 10:52 | Outpatient (REF) | payer MEDICARE, SELFPAY ==
[2024-07-11 12:34] LABS: Estimated Average Glucose 157 mg/dL; Hemoglobin A1C 200.7808 umol/L; Hemoglobin A1c % 7.1 % (<6.0); Total Hemoglobin (HGBA1C) 3680.8443 umol/L
== END 2024-07-11 10:53 | disposition home or self-care (01) ==
LOC: HO.LAB 10:52
PROVIDERS: PCP Internal Medicine; Visit Provider Pediatrics
DX: E10.42 Type 1 diabetes mellitus with diabetic polyneuropathy (principal)
CPT/HCPCS: 36415; 83036

== ENCOUNTER 2024-09-03 09:45 | Outpatient (AMB) | payer MEDICARE, SELFPAY ==
--- NOTE | 2024-09-03 09:45 | MHC.PC.OV ---
Vital Signs 09/03/24 09:59 Height 5 ft 1.5 in Weight 135 lb BMI 25.1 BP 134/70 Blood Pressure Location Lt brachial Pulse 60 Pulse Source Pulse Oximeter Temp 96.8 F Pulse Oximetry (%) 97 Intake Visit Reasons: follow up Intake Note: blood work results Allergies No Known Allergies Allergy (Verified 09/03/24 13:56) Medication List - Last Reconciled 09/03/24 by Lamine Baugh MD aspirin (Adult Low Dose Aspirin) 81 mg PO DAILY blood sugar diagnostic As directed cholecalciferol (vitamin D3) 25 mcg PO DAILY insulin aspart U-100 25 - 40 units subcut DAILY lancets As directed lorazepam 0.5 mg PO DAILY PRN psyllium husk (Metamucil) 1 tbsp PO BID rosuvastatin 40 mg (2 x 20 mg) PO BEDTIME PFSH Medical History 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 Diabetes mellitus Osteoporosis Surgical History History of surgery History of arthroplasty of left knee History of appendectomy History of wisdom tooth extraction History of tonsillectomy and adenoidectomy Family History Father Cancer Mother Dementia Heart problem Maternal Aunt Breast cancer Social History Household Members: None Alcohol intake: current Alcohol intake frequency: holidays/special occasions only Alcohol type: wine Patient Tobacco Use Status: Never used Tobacco Current occupation: rt handed Physical exam (Primary Care) Vital Signs: Last Vital Signs Temp 96.8 F 09/03/24 09:59 Pulse 60 09/03/24 09:59 BP 134/70 09/03/24 09:59 Pulse Ox 97 09/03/24 09:59 BMI result Body Mass Index 25.1 Tobacco/Smoking Status: Tobacco use Status Patient Tobacco Use Status Never used Tobacco 09/03/24 09:46 Coding Level of Care Code New Pt Level 4 (90165) Complex EM visit Add On G2211 Diagnoses Diabetes mellitus E11.9 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 Continue medications at same dosage. 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 Plan History of Present Illness The patient is an 84-year-old female presenting for a follow-up regarding her chronic conditions and symptoms. She has a long-standing history of Type 1 Diabetes Mellitus since the age of 29, managed with an insulin pump. Her recent HbA1c was 7.1%, which she considers an acceptable level, given her dietary habits. The patient also mentions hyperlipidemia and coronary artery disease, although she has no current concerns about these conditions. The patient reports experiencing fecal incontinence, mentioning the use of a pad and a sensation of stool leakage, attributed possibly to irritable bowel syndrome with a history of anal prolapse surgery. She finds relief with fiber intake but inquires if increasing the frequency of psyllium (Metamucil) intake might help. Peripheral neuropathy is noted, with numbness and stiffness in the lower extremities, for which she attends exercise classes to manage symptoms. She does not currently require medication for neuropathy. Additionally, she reports fatigue, particularly postprandial, attributing it to aging. The patient states lower extremity edema, especially after high salt intake, and describes her ankles as swollen. She expresses concern but opts for conservative measures such as salt reduction and leg elevation over diuretic use at this time. 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 - Lives in a senior residential center with access to exercise facilities. - Participates in fitness classes at a senior center twice weekly and uses a treadmill. - Reports a dietary preference for pastries, despite being a diabetic. Review of Systems - Constitutional: Reports fatigue; denies lack of energy. - Cardiovascular: Denies chest pain. - Gastrointestinal: Reports fecal incontinence; denies abdominal pain. - Neurological: Reports numbness and stiffness in the legs; denies dizziness. Physical Exam General: Cooperative and healthy appearing Nutritional Appearance: Well nourished Orientation/consciousness: Patient oriented x3 Limitations: No limitations Head: Normal to inspection General: Appearance normal, both eyes and all related structures Neck: Normal visual inspection Chest: Normal palpation of entire chest wall Respiratory: Normal respiratory effort Neurology: Patient oriented x3 Results - Labs: Hemoglobin A1c at 7.1% as of June. - Imaging: No imaging results were newly discussed. Plan - Continue current insulin pump regimen for Type 1 Diabetes Mellitus. - Increase Metamucil intake to twice daily to manage fecal incontinence. - Encourage exercise and dietary adjustments to manage peripheral neuropathy naturally. - Advise salt reduction and leg elevation for resolving edema. - No further testing for calcium scoring due to existing coronary artery disease management strategy. Patient was informed and verbally consented to the use of an ambient scribe for clinic note documentation during this visit. Discussion Notes I explained to the patient that the current management for her diabetes is effective, considering her lifestyle. We discussed that calcium scoring is not indicated at this time due to her existing coronary artery disease treatment. I reviewed options to manage fecal incontinence with increased fiber intake. Regarding neuropathy, we weighed the risks of medication side effects against her current level of discomfort. I suggested lifestyle changes, including dietary adjustments and exercises, to address edema and neuropathy. The patient decided against additional testing or medication for fatigue considering her age. Patient Instructions - Maintain your current insulin regimen and monitor blood glucose levels regularly. - Increase Metamucil to twice daily to help with bowel management. - Limit salt intake and elevate your legs as often as possible to reduce swelling. - Continue attending exercise classes and use the treadmill as tolerated. - Monitor for any increased or new symptoms and report them promptly. - Schedule next follow-up appointment as necessary. Orders: Orders Hemoglobin A1c Today E11.9 - Type 2 diabetes mellitus without complications, R15.9 - Full incontinence of feces Basic Metabolic Panel Today E11.9 - Type 2 diabetes mellitus without complications, R15.9 - Full incontinence of feces Lipid Panel Today E11.9 - Type 2 diabetes mellitus without complications, R15.9 - Full incontinence of feces Liver Panel Today E11.9 - Type 2 diabetes mellitus without complications, R15.9 - Full incontinence of feces Thyroid Stimulating Hormone Today E11.9 - Type 2 diabetes mellitus without complications, R15.9 - Full incontinence of feces UA and rflx microscopic Today E11.9 - Type 2 diabetes mellitus without complications, R15.9 - Full incontinence of feces C Reactive Protein Today E11.9 - Type 2 diabetes mellitus without complications, R15.9 - Full incontinence of feces Lipase Today E11.9 - Type 2 diabetes mellitus without complications, K85.90 - Acute pancreatitis without necrosis or infection, unspecified, R15.9 - Full incontinence of feces Medications: Refilled rosuvastatin 40 mg (2 x 20 mg) PO BEDTIME 90 tabs 1RF
[2024-09-03 09:59] VITALS: BP 134/70; PULSE 60; TEMP 36; O2SAT 97; BMI 25.1
--- OUTSIDE RECORDS SUMMARY | 2024-09-03 11:08 | XMS_ITS ---
Author Organization Elie Heller DO, FACP Address [address], [place] [id number] Care Team Providers Care Senior Service Aide Name Role Phone Elie Heller Primary Care Provider SOCIAL HISTORY Sex Assigned At : Social History Observation Description Sex Assigned At Female Encounters Encounter Location Date Provider Diagnosis Elie Heller DO, FACP [address] [place] [address] [phone] 05/07/2024 Elie Heller PLAN OF TREATMENT No Information
--- OUTSIDE RECORDS SUMMARY | 2024-09-03 11:08 | XMS_ITS ---
Author Organization Elie Heller DO, FACP Address [address], [place] [id number] Care Team Providers Care Chemistry Specialist Name Role Phone Elie Heller Primary Care Provider ALLERGIES No Known Allergies REASON FOR VISIT pre-operative, cataract MEDICATIONS Medication SIG (Take, Route, Frequency, Duration) Notes Start Date End Date Status Vitamin D 50 MCG (1999) 1 capsule Ora lly Once a day Active Rosuvastatin Calcium 40 MG 1 tablet Orally Once a day Active Aspirin 81 MG 1 tablet Orally Once a day Active NovoLOG 100 UNIT/ML via insulin pump Subcutaneous continuous basal plus bolus with meals Active LORazepam 0.5 MG 1 tablet as needed O rally Once a day 08/09/2022 Active PreserVision AREDS 2+Multi Vit - 2 capsules Orally Once a day Active Lutein-Zeaxanthin 45-1.8 MG 1 capsule Orally Twice a day Active Psyllium 58.6 % 1 scoop mixed in wit h applesauce Orally Once a day 09/06/2018 Active SOCIAL HISTORY Tobacco Use: Social History Observation Description Date Details (start date - stop date) Never Smoker NA - NA Sex Assigned At : Social History Observation Description Sex Assigned At Female Tobacco Use/Smoking Question Answer Notes Patient is a nonsmoker Additional Findings: Tobacco Non-User Cu rrent non-smoker, currently using no form of tobacco Alcohol Screen Question Answer Notes Did you have a drink contain ing alcohol in the past year? Yes How often did you have a dri nk containing alcohol in the past year? 2 to 3 times a week (3 points) How many drinks did you have on a typical day when you were drinking in the past year? 1 or 2 drinks (0 point) How often did you have 6 or more drinks on one occasion in the past year? Never (0 point) Points 3 Interpretation Positive PROBLEMS Problem Type ICD Code Onset Dates Problem Status W/U Status Risk SNOMED Code Notes Problem Cataract of right eye, unspecified cataract type (H26.9) Active confirmed 320343638 VITAL SIGNS BMI 23.01 kg/m2 04/09/2024 Blood pressure systolic 116 mm Hg 04/09/20 24 Blood pressure diastolic 62 mm Hg 024 Height 63.50 in 04/09/2024 Weight 132 lbs 04/09/2024 Encounters Encounter Location Date Provider Diagnosis Elie Heller DO, [address] [id number] 04/09/2024 Elie Heller Cataract of right eye, unspecified cataract type H26.9 ; Type 1 diabetes mellitus without complication E10.9 ; Irritable bowel syndrome with diarrhea K58.0 ; Osteoporosis without current pathological fracture, unspecified osteoporosis type M81.0 and Anxiety F41.9 ASSESSMENTS Encounter Date Diagnosis Assessment Notes Treatment Notes Treatment Clinical Notes 04/09/2024 Cataract of right eye, unspecified cataract type (ICD-10 - H26.9) Marylou is an acceptable candidate for the proposed surgical procedure and is medically cleared for surgery. She will hold the aspirin for 7 days prior to the procedure and she will adjust her insulin pump accordingly on the day of surgery 04/09/2024 Type 1 diabetes mellitus without complication (ICD-10 - E10.9) 04/09/2024 Irritable bowel syndrome with diarrhea (ICD-10 - K58.0) 04/09/2024 Osteoporosis without current pathological fracture, unspecified osteoporosis type (ICD-10 - M81.0) 04/09/2024 Anxiety (ICD-10 - F41.9) PLAN OF TREATMENT Medication Medication Name Sig Start Date Stop Date Notes Vitamin D 50 MCG (1999) 1 capsule Orally Once a day Rosuvastatin Calcium 40 MG 1 tablet Orally Once a day Aspirin 81 MG 1 tablet Orally Once a day NovoLOG 100 UNIT/ML via insulin pump Sub cutaneous continuous basal plus bolus with meals LORazepam 0.5 MG 1 tablet as needed O rally Once a day 08/09/2022 PreserVision AREDS 2+Multi Vit - 2 capsules Orally Once a day Lutein-Zeaxanthin 45-1.8 MG 1 capsule Orally Twice a day Psyllium 58.6 % 1 scoop mixed in wit h applesauce Orally Once a day 09/06/2018 Treatment Notes Assessment Notes Cataract of right eye, unspe cified cataract type Marylou is an acceptable candidate for the proposed surgical procedure and is medically cleared for surgery. She will hold the aspirin for 7 days prior to the procedure and she will adjust her insulin pump accordingly on the day of surgery Pending Test Test Name Order Date CRP High Sensitivity 04/09/2024 C Reactive Protein 04/09/2024 Progress Notes * Examination Category Sub-Category Detail Notes General Examination GENERAL APPEARANCE: in no ac natacha distress, well developed, well nourished HEAD: normocephalic, atrau matic HEART: no murmurs, regular rate and rhythm, S1, S2 normal LUNGS: clear to auscultatio n bilaterally ABDOMEN: normal, bowel sounds present, soft, nontender, nondistended SKIN: warm and dry EXTREMITIES: no edema PSYCH: alert, oriented, cog nitive function intact
--- OUTSIDE RECORDS SUMMARY | 2024-09-03 11:08 | XMS_ITS ---
Author Organization Elie Heller DO, FACP Address [address] [place], [place] [id number] Care Team Providers Care Language And Literature Division Chair Name Role Phone Elie Heller Primary Care Provider REASON FOR VISIT 6 month f/u SOCIAL HISTORY Sex Assigned At : Social History Observation Description Sex Assigned At Female Encounters Encounter Location Date Provider Diagnosis Elie Heller DO, FACP [address] [place] [id number] 04/30/2024 Elie Heller PLAN OF TREATMENT No Information
== END 2024-09-03 10:31 | disposition home or self-care (01) ==
LOC: HO.HMCSH 09:45
PROVIDERS: PCP Internal Medicine; Visit Provider Internal Medicine
DX: E11.9 Type 2 diabetes mellitus without complications (principal); R15.9 Full incontinence of feces

== ENCOUNTER → 2024-09-03 09:45 | Outpatient (BNVA) | payer MEDICARE, SELFPAY | PROVIDERS: PCP Internal Medicine; Visit Provider Internal Medicine | DX: E11.9 Type 2 diabetes mellitus without complications (principal); R15.9 Full incontinence of feces | CPT/HCPCS: 99202 ==

== ENCOUNTER 2024-10-20 08:09 | Outpatient (REF) | payer MEDICARE, SELFPAY ==
[2024-10-20 09:58] LABS: Alanine Aminotransferase 30 U/L (0-31); Albumin Level 3.9 g/dL (3.5-5.0); Alkaline Phosphatase 55 U/L (39-117); Anion Gap 12 (12-20); Aspartate Amino Transferase 38 U/L (5-31); Bilirubin Direct 0.2 mg/dL (0.0-0.5); Bilirubin Total 0.5 mg/dL (0.0-1.0); Blood Urea Nitrogen 17 mg/dL (9-16); C Reactive Protein 2.02 mg/dL (< or = 0.50); Carbon Dioxide 29 mmol/L (22-29); Chloride 104 mmol/L (96-108); Cholesterol 159 mg/dL (<200); Estimated Glomerular Filt Rate > 60; Glucose Random 188 mg/dL (60-115); HDL Cholesterol 59 mg/dL (>40); LDL Cholesterol Calculated 87 mg/dL (<100); Lipase 34 U/L (8-78); Potassium 3.7 mmol/L (3.3-5.1); Sodium 141 mmol/L (135-145); Total Protein 6.7 g/dL (6.5-8.0); Triglycerides 66 mg/dL (<150)
[2024-10-20 10:01] LABS: Thyroid Stimulating Hormone 2.16 uIU/mL (0.32-4.0)
[2024-10-20 11:57] LABS: Appearance Urine Cloudy; Color Urine Dark Yellow; Glucose Urine UA 100 mg/dL (Negative); Leukocyte Esterase Urine Negative (Negative); Nitrite Urine Negative (Negative); PH 5.5 (5.0-9.0); Specific Gravity - Urine 1.025 (1.005-1.025); UMIC TRIGGER UA YES; Urine Blood Negative (Negative); Urine Ketones Trace mg/dL (Negative); Urine Protein 30 (1+) mg/dL (Neg-Trace)
[2024-10-20 12:06] LABS: Bacteria Urine None Seen (None Seen); RBC Urine 0-2 /HPF (0-2)
== END 2024-10-20 08:10 | disposition home or self-care (01) ==
LOC: HO.LAB 08:09
PROVIDERS: PCP Internal Medicine; Visit Provider Internal Medicine
DX: E11.9 Type 2 diabetes mellitus without complications (principal); R15.9 Full incontinence of feces; K85.90 Acute pancreatitis without necrosis or infection, unspecified
CPT/HCPCS: 36415; 80048; 80061; 80076; 81001; 83690; 84443; 86140

== ENCOUNTER 2025-01-14 10:08 | Outpatient (REF) | payer MEDICARE, SELFPAY ==
[2025-01-14 11:00] LABS: Estimated Average Glucose 151 mg/dL; Hemoglobin A1c % 6.9 % (<6.0)
--- OUTSIDE RECORDS SUMMARY | 2025-01-14 11:43 | XMS_ITS | Data Portability ---
Author Organization [facility] - [facility], Allergy Address [address] [address] Care Team Providers Care Retail Assistant Store Manager Name Role Phone ZOYA HATFIELD Primary Care Provider [phone] Assessment Encounter Date Assessment Date Assessment LastModified by Organization Details LastModified Time 12/05/2023 12/05/2023 Patient presents for cerumen removal. Cerumen removed bilaterally without difficulty. Follow up as scheduled for repeat procedure. aristides Not available 12/05/2023 10:09:19 06/13/2024 06/13/2024 84-year-old female presents for cerumen removal. Cerumen removed bilaterally. She is due for updated audiometric testing but prefers to do this at the next visit. Follow-up in 6 months. aristides Not available 06/13/2024 11:47:16 12/12/2024 12/12/2024 84-year-old female presents for cerumen removal. Cerumen removed bilaterally. TMs normal to inspection. Audiometric testing was obtained today showing sensorineural hearing loss bilaterally which is symmetrical. She would be an excellent candidate for amplification. She is hesitant to proceed with amplification at this time. Will consider her options and follow-up in 6 months for ear cleaning. aristides Not available 12/12/2024 10:24:54 Plan of Treatment Reminders Order Date Submit Date Provider Last Modified By Organization Details Last Modified Time Details Appointments Establish ed 15 2024 09:45A M MARY LIVE PA-C Not available Not available Not available Lab None recorded. Referral None recorded. Procedures None recorded. Surgeries None recorded. Imaging None recorded. Medication Orders None recorded. Patient TargetsNo targets recorded. Patient InstructionsNo instructions recorded. Reason for Referral None Reported. Results Created Date Observation Date Name Description Value Unit Range Abnormal Flag Note LastModifiedBy Organization Detail LastModifiedTime 03/12/2008/09/2022 imagi ng/di agnos tic resul t No observ ation record ed. [email or web address] Not Available 21:01:01 03/12/20 24 06/01/2023 imagi ng/di agnos tic resul t No observ ation record ed. [email or web address] Not Available 21:01:16 03/12/20 24 06/01/2023 audio gram No observ ation record ed. [email or web address] Not Available 21:01:37 12/13/19 audio gram No observ ation record ed. [email or web address] Not Available 2024 11:56:02 Result Notes None recorded. Problems Name Problem SNOMED Code Status Onset Date Resolution Date Notes Provider Name and Address Organization Details Recorded Time Sensorine ural hearing loss of bilateral ears 474435466 Active 2022 Sensorine ural hearing loss, bilateral ; Note: Date Diagnosed : 3 9:55 AM (H90.3) Not Available [facility] 4 03:01:54 Impacted cerumen of bilateral ears 04005624947 47172 Active 2022 Impacted cerumen, bilateral ; Note: Date Diagnosed : 11/29/2022 12:29 PM (H61.23) Not Available [facility] 4 03:01:56 Problem Notes None recorded. Procedures Surgical History Date Name Laterality Status Provider Name and Address Organization Details Recorded Time 12/13/19 25 Comp Audio with Tymps - 69580 & 35306 completed STEVO JORGENSEN [facility],[address], [address], [facility] 12/12/2024 10:07:00 12/13/19 25 Cerumen removal without microscope bilat completed MARY LIVE PA-C 100 [facility],[address], [address], [facility] - [facility] 12/12/2024 10:24:28 06/13/20 24 Cerumen removal without microscope bilat completed MARY LIVE PA-C [facility], [place], [address], [place] - [facility] 06/13/2024 11:46:40 12/05/19 24 Cerumen removal without microscope bilat completed MARY LIVE PA-C [facility], [place], [address], [place] - [facility] 12/05/2023 10:24:35 tonsillectomy and adenoidectomy completed Veronica Agudelo [place] - [facility] 06/13/2024 10:22:57 arthroscopy of knee completed Veronica Agudelo [facility] 06/13/2024 10:23:15 Imaging Results None recorded. Procedure Notes None recorded. Medical Equipment None Reported. Allergies No known drug allergies Medications Name Sig Start Date Stop Date Status Note LastModified by Organization Details LastModified Time azithromy erika 250 mg tablet TAKE 2 TABLETS BY MOUTH TODAY, THEN TAKE 1 TABLET DAILY FOR 4 DAYS DIRECTED 12/12 completed Not Available Not Available Not Available ketorolac 0.5 % eye drops INSTILL 1 DROP IN RIGHT EYE THREE TIMES A DAY FOR THREE WEEKS FOLLOWIN G CATARACT SURGERY active Not Available Not Available No t Available lorazepam 0.5 mg tablet active Medicati on ID: [id number] B rand Name: lorazepa m Send Method: E-Prescr ibed Sub s Allowed: subs OK Medic ationGen ericName : lorazepa m Not Available Not Available Not Available Aspirin Childrens 81 mg chewable tablet active Medicati on ID: [id number] B rand Name: Aspirin Children s Send Method: E-Prescr ibed Sub s Allowed: subs OK Medic ationGen ericName : Aspirin Children s Not Available Not Available Not Available Novolog U-100 Insulin aspart 100 unit/mL subcutane ous solution INJECT 25 TO 40 UNITS DAILY DX:E10.4 2 active Not Available Not Available No t Available rosuvasta tin 20 mg tablet 06/13 completed Medicati on ID: [id number] B rand Name: rosuvast atin Sen d Method: E-Prescr ibed Sub s Allowed: subs OK Medic ationGen ericName : rosuvast atin Not Available Not Available Not Available rosuvasta tin 40 mg tablet TAKE 1 TABLET BY MOUTH EVERY DAY active Not Available Not Available No t Available Accu-Chek Guide test strips PLEASE SEE ATTACHED FOR DETAILED DIRECTIO NS active Not Available Not Available No t Available Tyrvaya 0.03 mg/spray nasal spray active Not Available Not Available Not Available Vitals Date Recorded Body height Body mass index (BMI) Body weight Provider Name and Address Organization Details Last Updated DateTime 12/05/2023 162.56 cm 21.5 kg/m2 34128.05 g Bridget Garcia [place] - [facility] 12/05/2023 09:45:00 Date Recorded Body height Body mass index (BMI) Body weight Provider Name and Address Organization Details Last Updated DateTime 12/12/2024 162.56 cm 22.3 kg/m2 20923.01 g Heide Landry [place] - [facility] 12/12/2024 09:15:59 Date Recorded Body height Body weight Provider Name and Address Organization Details Last Updated DateTime 06/13/2024 162.56 cm 59337.05 g Veronica Agudelo [place] - [facility] 06/13/2024 10:21:57 Social History None recorded. Functional Status None recorded. Mental Status None recorded. Family History Nothing Reported. Medical History Condition Response High Cholesterol Y Hypertension Y Gynecological HistoryNo gynecological history recorded. Obstetrics History GPAL:G 0 P 0 0 0 0 Immunizations Vaccine Type Date Status Note Provider Nam e and Address Organization Details Recorded Time influenza, seasonal, intradermal, preservative free 3 completed Bridget finch [place] - [facility] 12/05/2023 09:45:47 Past Encounters Encounter ID Performer Location Encounter Start Date Encounter Closed Date Diagnosis/Indication Diagnosis SNOMED-CT Code Diagnosis ICD10 Code Diagnosis Note [id number] MARY LIVE PA-C [facility] [address] [place] [address] 12/05/2023 09:29:55 12/05/2023 10:03:47 Impacted cerumen of bilateral ears [id number] 689100 H61.23 Ear examined with hand held otoscope. Cerumen removed bilaterall y with instrument s as needed. [id number] MARY LIVE PA-C [facility] [address] [address] 06/13/2024 10:17:53 06/13/2024 10:58:49 Impacted cerumen of bilateral ears 3053902034 992084 H61.23 Ear examined with hand held otoscope. Cerumen removed bilaterall y with instrument s as needed. Sensorineu ral hearing loss of bilateral ears 392558853 H90.3 [id number] MARY LIVE PA-C [facility] [address] [address] 12/12/2024 09:09:55 12/12/2024 10:25:47 Impacted cerumen of bilateral ears 0867877830 211009 H61.23 Ear examined with hand held otoscope. Cerumen removed bilaterall y with instrument s as needed. Sensorineu ral hearing loss of bilateral ears 946645647 H90.3 [id number] STEVO JORGENSEN [facility] [address] [address] 12/12/2024 10:04:54 12/18/2024 09:00:04 Sensorineural hearing loss of bilateral ears 261101059 H90.3 Audiologic al evaluation results: Right ear: Normal sloping to severe sensorineu ral hearing loss with good word recognitio n. Left ear: Normal sloping to severe sensorineu ral hearing loss with excellent word recognitio n. Tympanomet ry: Right Ear:Type A Left Ear:Type A Health Concerns Section Related Observation LastModified by Organization Detai ls LastModified Time None Recorded Concern Status LastModified by Organization Details LastModified Time None Recorded Advance Directives Directive None Recorded Payers Insurance Date Sequence Insurance Name Policy Number Policy Diaz Covered Member ID Diaz Member ID Guarantor Name 12/19/2024 2 [place] [id number] Marylou Daniels [id number] Marylou Daniels 12/19/2024 1 [place] [employer] [place] Marylou Daniels [id number] Marylou Daniels 12/12/2024 1 [place] [employer] [place] Marylou Daniels [id number] Marylou Daniels 12/12/2024 1 [place] [id number] Marylou Daniels [id number] Marylou Daniels Notes Date Note Type Note Provider Name and Address Organization Details Recorded Time 12/05/2023 text/html 83-year-old adria fregoso presents for cerumen removal. She has had no acute changes since her last visit. MARY LIVE PA-C 100 [facility],[address], [address], [place] - [facility] 12/05/2023 10:26:20 06/13/2024 text/html 84-year-old adria fregoso presents for cerumen removal. History of asymmetric sensorineural hearing loss which we are observing with serial audiometric testing. Has noticed no change but does continue to have tinnitus. FRANKLIN HOPKINS MD 100 [facility],[address], [address], [facility] 06/13/2024 12:58:30 12/12/2024 text/html 84-year-old adria fregoso presents for cerumen removal and updated hearing test. She has a history of sensorineural hearing loss. Feels that is getting worse. FRANKLIN HOPKINS MD 100 [facility],[address], [address], [facility] - [facility] 12/12/2024 12:41:33 OBGyn Episode No OBEpisode recorded.
== END 2025-01-14 10:09 | disposition home or self-care (01) ==
LOC: HO.LAB 10:08
PROVIDERS: PCP Internal Medicine; Visit Provider Pediatrics
DX: E10.42 Type 1 diabetes mellitus with diabetic polyneuropathy (principal)
CPT/HCPCS: 36415; 83036

== ENCOUNTER 2025-02-25 09:46 | Outpatient (AMB) | payer MEDICARE, SELFPAY ==
[2025-02-25 09:59] VITALS: BP 132/82; PULSE 74; RESP 14; TEMP 36.9; O2SAT 98; BMI 25.3
--- NOTE | 2025-02-25 09:59 | MHC.PC.OV ---
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 Required: No Accompanied by: Self / Same As Patient Allergies No Known Allergies Allergy (Verified 02/25/25 12:16) Medication List - Last Reconciled 02/25/25 by Nadine Smith PA-C aspirin (Adult Low Dose Aspirin) 81 mg PO DAILY blood sugar diagnostic As directed cholecalciferol (vitamin D3) 25 mcg PO DAILY insulin aspart U-100 25 - 40 units subcut DAILY lancets As directed psyllium husk (Metamucil) 1 tbsp PO BID rosuvastatin 40 mg PO DAILY Tobacco use date assessed: 02/25/25 Dental Screening Dental Screen Date: 02/25/25 Did you have a dental visit in the last 12 months?: Yes Did you have a dental problem in the last 6 months where you did not have access to dental care?: No Was dental information given to patient?: Patient has dentist HPI Cerumen impaction HPI Details The patient is an 84-year-old female presenting with ear canal irritation and hearing impairment. The patient reports using TV ears to assist with hearing the television, which may be causing irritation in the right ear canal. She has noticed redness and a sensation of blockage, although there is no associated pain. The patient has a history of regular ear cleanings every six months with an ENT specialist, but she did not attend her recent appointment due to scheduling conflicts. She is scheduled for a hearing test next week and is concerned about the current irritation affecting the results. 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 Diabetes mellitus Osteoporosis Surgical History History of surgery History of arthroplasty of left knee History of appendectomy History of wisdom tooth extraction History of tonsillectomy and adenoidectomy Family History Father Cancer Mother Dementia Heart problem Maternal Aunt Breast cancer Social History Household Members: None Housing: House Alcohol intake: current Alcohol intake frequency: holidays/special occasions only Alcohol type: wine Patient Tobacco Use Status: Never used Tobacco service: No Current occupational status: retired Cognitive needs: No Hearing needs: No Vision needs: No Questionnaire PHQ-9 Over the last 2 weeks, how often have you been bothered by any of the following problems? 1. Little interest or pleasure in doing things: not at all 2. Feeling down, depressed, or hopeless: not at all 3. Trouble falling or staying asleep, or sleeping too much: not at all 4. Feeling tired or having little energy: not at all 5. Poor appetite or overeating: not at all 6. Feeling bad about yourself - or that you are a failure or have let yourself or your family down: not at all 7. Trouble concentrating on things, such as reading the newspaper or watching television: not at all 8. Moving or speaking so slowly that other people could have noticed. Or the opposite - being so fidgety or restless that you have been moving around a lot more than usual: not at all 9. Thoughts that you would be better off or of hurting yourself in some way: not at all Total score: 0 Depression Screening Interpretation: Negative Depression Screening Done: Yes 79259 - PHQ-9 Billing: Yes Source: Developed by Drs. Elie Lucas, Greta Carlin, Sumit Yang and colleagues, with an educational zahraa from [employer]. Thrive Questionnaire Date Thrive assessed: 02/25/25 I am a: Patient What is your living situation today?: I have a steady place to live Within the past 12 months, did the food you bought not last and you didn't have the money to get more?: Never true Within the past 12 months, did you worry whether your food would run out before you got money to buy more?: Never true Do you have trouble paying for medicines?: No Do you have trouble getting transportation to medical appointments?: No Do you have trouble paying your heating and electricity bill?: No Do you have trouble taking care of your child, family member or friend?: No Do you have trouble with day-to-day activities such as bathing, preparing meals, shopping, managing finances, etc.?: No Are you currently unemployed and looking for a job?: No Are you interested in more education?: No Please select the resources that you would like help with: None THRIVE Score: 0 AUDIT C Alcohol Use Questionnaire (AUDIT-C) 1. How often do you have a drink containing alcohol?: Never 3. How often do you have six or more drinks on one occasion?: Never Total Score: 0 Score Reviewed/Action Taken: No WIN-7 AMB Questionnaire WIN-7 Date WIN - 7 assessed: 02/25/25 Feeling nervous, anxious, or on edge: 0 = Not at all Not being able to stop or control worryin = Not at all Worrying too much about different things: 0 = Not at all Trouble relaxin = Not at all Being so restless that it is hard to sit still: 0 = Not at all Becoming easily annoyed or irritable: 0 = Not at all Feeling afraid as if something awful might happen: 0 = Not at all Total WIN-7 score (0-4 normal; 5-9 mild; 10-14 moderate; 15-21 severe): 0 Source: Developed by Drs. Elie Lucas, Greta Carlin, Sumit Yang and colleagues, with an educational zahraa from [employer]. WIN-7 Assessment Billing WIN-7 Assessment Tool: WIN-7 Assessment 40989 Review of Systems Const Details: - Ears: Reports hearing impairment and sensation of blockage, denies pain All systems reviewed & are unremarkable except as noted in HPI and below Physical exam (Primary Care) Vital Signs: Last Vital Signs Temp 98.5 F 02/25/25 09:59 Pulse 74 02/25/25 09:59 Resp 14 02/25/25 09:59 BP 142/92 H 02/25/25 09:59 Pulse Ox 98 02/25/25 09:59 Oxygen Delivery Method Room Air 02/25/25 09:59 Care Plan Goal for BP management: <140/90 at Goal BMI result Body Mass Index 25.3 BMI Assessment/Plan discussion: High BMI High, discussed plan: lifestyle, weight reduction, dietary, physical activity and alcohol moderation Tobacco/Smoking Status: Tobacco use Status Tobacco use date assessed 02/25/25 02/25/25 10:03 Patient Tobacco Use Status Never used Tobacco 02/25/25 10:03 PHQ-9: PHQ-9 Score PHQ-9: Total score 0 02/25/25 10:03 Depression Screening Interpretation: Negative Thrive Assessment: Date of Thrive Assessment Date Thrive assessed 02/25/25 02/25/25 10:03 Const Other: Appearance: Alert. Oriented X3. No acute distress. Head: Normal external exam. Normocephalic. Atraumatic. Eyes: Pupils are equal, round, and reactive to light. Extraocular movements intact. Conjunctiva and sclera normal. Eyelids normal. Ears: Right ear canal is red and irritated with a red bump and a little bit of blood under the skin, likely due to trauma from use of TV ears. Tympanic membranes are normal. Left ear has a little bit of wax on the outer rim but is otherwise fine. No cerumen impactions were noted. Tympanic membranes are bilaterally intact. Mastoid are within normal limits. Patient does have decreased hearing and is hard of hearing during exam. Throat: Pharynx normal. Uvula midline. Moist mucous membranes. Neck: Normal inspection. Neck supple. Full range of motion. Cardiovascular: Normal heart rate and rhythm. Respiratory: No respiratory distress. Painless inspiration. Back: Full range of motion noted. Skin: Skin warm and dry. Normal skin color. Extremities: Extremities exhibit normal range of motion. Office Procedures Cerumen Removal From which ear canal was the cerumen removed: bilateral Removal: irrigation Notes: patient tolerated procedure well, no complications and ear canal clear [id number] Irrigation/Lavage Coding Level of Care Code Est Pt Level 4 (81571) Complex EM visit Add On G2211 Diagnoses Irritation of external ear canal H61.899 Hard of hearing H91.90 CPT Codes Office Procedure - CPT: 68437-Bia Irrigation/Lavage ([id number]) Additional Codes PHQ-9 - 39619 - PHQ-9 Billing: Yes ([id number]) WIN-7 Assessment Billing - WIN-7 Assessment Tool: WIN-7 Assessment 11794 ([id number]) Assessment & Plan Assessment & Plan (1) Irritation of external ear canal: Code(s): H61.899 - Other specified disorders of external ear, unspecified ear Category: Medical Plan: The patient is advised to discontinue the use of TV ears as they may be causing trauma to the ear canal. The erythema is expected to resolve within a week, and the patient is advised to monitor for any worsening symptoms. (2) Hard of hearing: Code(s): H91.90 - Unspecified hearing loss, unspecified ear Category: Medical Plan: The patient is scheduled for a hearing test next week to assess the extent of hearing impairment. She is advised to follow up with her ENT specialist for further evaluation and management. Plan Plan Patient was informed and verbally consented to the use of an ambient scribe for clinic note documentation during this visit. 1. Ear Canal Irritation The patient is advised to discontinue the use of TV ears as they may be causing trauma to the ear canal. The erythema is expected to resolve within a week, and the patient is advised to monitor for any worsening symptoms. 2. Hearing Impairment The patient is scheduled for a hearing test next week to assess the extent of hearing impairment. She is advised to follow up with her ENT specialist for further evaluation and management. During the visit, I discussed with the patient the likely cause of her ear canal irritation, which appears to be related to the use of TV ears. I advised her to discontinue their use to prevent further trauma. We also discussed her upcoming hearing test and the importance of following up with her ENT specialist for further evaluation. Patient Instructions: - Stop using TV ears to prevent further ear canal irritation. - Monitor for any worsening symptoms in the ear canal. - Attend the scheduled hearing test next week. - Follow up with ENT specialist for further evaluation.
--- OUTSIDE RECORDS SUMMARY | 2025-02-25 10:12 | XMS_ITS | Clinical Summary ---
Author Organization [facility] Address [address] [place] [address] Phone Care Team Providers Care Personnel Monitor Name Role Phone Lamine Baugh MD Primary Care Provid er Allergies No known active allergies Medications aspirin 81 MG EC tablet 1 tablet Active insulin pump syringe 3 mL Misc as directed 11/25/19 17 Active infusion set for insulin pump ISet as directed 09/14/19 12 Active LORazepam (ATIVAN) 0.5 MG tablet every 6 (six) hours as needed. Active Medication-Free Text 1,000 mg 2 (two) times a day. Pro DHA Eye Active rosuvastatin (CRESTOR) 40 MG tablet Take 40 mg by mouth daily. Patient reports ta Active ONETOUCH DELICA LANCETS 30 gauge MiscIndications:Ty pe 1 diabetes mellitus with polyneuropathy 1 each by Miscellaneous route 3 (three) times a day before meals. DX:E10.42 300 each 3 12/03/19 22 Active vitamin A,C,H-nsoc-ydertp (OCUVITE PRESERVE) 2,148 mcg-113 mg-45 mg-17.4mg Tab Take 2 capsules by mouth daily. Active ACCU-CHEK GUIDE TEST STRIPS Strp stripsIndications: Type 1 diabetes mellitus with polyneuropathy Use to check BG up to 3 times/day in the event of CGM failure. Strips for meter that links with 780g pump. 100 strip 11 10/14/19 25 Active insulin aspart U-100 (NOVOLOG U-100 INSULIN ASPART) 100 unit/mL injection vialIndications:Ty pe 1 diabetes mellitus with polyneuropathy,Ins ulin pump in place INJECT 25 TO 40 UNITS DAILY DX:E10.42 40 mL 3 01/17/20 25 Active Active Problems Problem Noted Date Diagnosed Date Dry eyes, bilateral 04/22/2018 Assessment & Plan (04/22/2018 8:46 PM EDT): Struggling with dry eyes and dry mouth for 2 years, seeing security intern and therapy has not been helpful Sicca syndrome, ?sjogrens, possibly increased likelihood due to her personal autoimmune disease history Type 1 diabetes mellitus with polyneuropathy Overview (10/18/2017): DIABETES HISTORY Diagnosis - type 1 diabetes, dx in 1970 Treatment history - insulin pump 1999 Assessment & Plan (01/17/2025 2:58 PM EDT): Overall continues with very good control, TIR per CGM is at goal and this has been stable since last visit, some variability that Marylou is frustrated by is expected and we discussed how this may be affected if she were to use an integrated insulin pump/CGM system as this would automate delivery, this could benefit Marylou in many ways and likely result in much less variability We did not adjust insulin delivery settings today Marylou continues using CGM and she continues to self monitor fingerstick blood sugars, we discussed compression low inaccuracies, we revisited that postprandial bolusing for elevated readings after meals are likely putting Marylou at some risk for hypoglycemia, she continues to monitor CGM patterns closely Marylou is encouraged to continue her efforts at healthy lifestyle Marylou will return to follow up with Alix Perez in 3 months and with me in 6 months, she is encouraged to contact me with any questions or concerns Assessment & Plan (10/13/2024 10:09 AM EDT): Overall continues with very good control, but this is variable day to day and this would likely be less variable with a CGM integrated insulin pump We did not adjust insulin delivery settings Recommended Marylou to be conservative with corrections before bedtime Marylou continues using CGM and she continues to self monitor fingerstick blood sugars Marylou continues to give after meal corrections for elevated readings, we revisited that these are likely putting Marylou at risk for hypoglycemia, she does monitor CGM patterns closely Marylou is encouraged to continue her efforts at healthy lifestyle Marylou will return to follow up with Dr. Lancaster in 3 months and with me in 6 months, she is encouraged to contact me with any questions or concerns Assessment & Plan (07/04/2024 1:27 PM EST): Overall continues with very good control, somewhat worsened most recently, this has been variable due to challenges with meal bolusing since she does not know carb counts in her meals We did not adjust insulin delivery settings today Marylou continues using CGM and she continues to self monitor fingerstick blood sugars, we revisited insulin pump and CGM integration which would automate delivery as well, this could benefit Marylou in many ways particularly since bolusing at meals is more challenging in her current living situation Maryolu continues to give after meal corrections for elevated readings, we revisited that these are likely putting Marylou at risk for hypoglycemia, she does monitor CGM patterns closely Marylou is encouraged to continue her efforts at healthy lifestyle Marylou would like to discuss alternate infusion sets and how to use these, she would like to have more areas to place infusion sets; she is advised to discuss this at next visit with perinatal educator or with Alix Perez if time permits Marylou will return to follow up with Alix Perez in 3 months and with me in 6 months, she is encouraged to contact me with any questions or concerns Assessment & Plan (04/12/2024 7:59 PM EDT): Overall continues with very good control, but this is variable day to day and this would likely be less variable with a CGM integrated insulin pump We adjusted target today, otherwise we did not adjust any other insulin delivery settings Marylou continues using CGM and she continues to self monitor fingerstick blood sugars, we discussed insulin pump and CGM integration which would automate delivery as well, this could benefit Marylou We discussed pumps with integrated CGMs, Marylou prefers to remain with [employer], and their current CGM is rather difficult to learn, but [employer] did announce their Simplera CGM will be soon available, so this may be a better option for Marylou to remain on the [employer] system and eventually have an integrated CGM Marylou continues to give after meal corrections for elevated readings, we revisited that these are likely putting Marylou at risk for hypoglycemia, she does monitor CGM patterns closely Marylou is encouraged to continue her efforts at healthy lifestyle Marylou would like prescription updated for infusion sets to change every other day, she has only been shipped 40 sets, and she runs out too soon and she would like to have 45 sets and preferably get supplies directly from [employer], I discussed we can look into this for her Marylou will return to follow up with Dr. Lancaster in 3 months and with me in 6 months, she is encouraged to contact me with any questions or concerns Assessment & Plan (12/28/2023 1:23 PM EDT): Overall continues with very good control, but this is variable day to day and this would likely be less variable with a CGM integrated insulin pump We did not adjust insulin delivery settings today Marylou continues using CGM and she continues to self monitor fingerstick blood sugars, we discussed insulin pump and CGM integration which would automate delivery as well, this could benefit Marylou and she would like to discuss this at next visit with Alix Frank Marylou continues to give after meal corrections for elevated readings, we revisited that these are likely putting Marylou at risk for hypoglycemia, she does monitor CGM patterns closely Marylou is encouraged to continue her efforts at healthy lifestyle Marylou has had some issues with her insulin pump infusion sets and we discussed alternatives today, she will likely return to the Silhouette infusion set and expand areas where she wears these Marylou will return to follow up with Alix Frank in 3 months and with me in 6 months, she is encouraged to contact me with any questions or concerns Assessment & Plan (06/25/2023 11:22 PM EST): Overall continues with very good control, but this is variable day to day We did not adjust insulin delivery settings today Marylou continues using CGM and she continues to self monitor fingerstick blood sugars, we discussed insulin pump and CGM integration which would automate delivery as well, this could benefit Marylou however she is not interested in changing to a Medtronic sensor at this time, she is reassured that this is now covered by Medicare Marylou continues to give after meal corrections for elevated readings, we revisited that these are likely putting Marylou at risk for hypoglycemia Marylou is encouraged to continue her efforts at healthy lifestyle Marylou has had some functionality issues with her insulin pump which she had raised at our last visit as well, advised to discuss this with [employer] so that insulin pump can be replaced if needed Marylou will return to follow up with Betsey Andujar in 3 months and with me in 6 months, she is encouraged to contact me with any questions or concerns Assessment & Plan (12/15/2022 10:34 AM EDT): Overall continues with very good control, but this is variable We discussed changes to I:C ratio as noted Marylou continues using CGM and she has more awareness of her blood sugar patterns which has been helpful Frequent after meal corrections of elevated readings, these are likely putting Marylou at risk for hypoglycemia, we discussed optimizing the amount of insulin she receives for her meals which should reduce this Marylou is encouraged to continue her efforts at healthy lifestyle, increase in outdoor activity may have led to lower/more in-range readings in the past few days Reviewed scanned routine labs dated December 11, 2022, - GFR 55, no anemia, TSH in desired range Marylou had questions today regarding insulin pump/CGM management in assisted living/SNF living situations and we discussed the variability in this today as well as potential imprudence of aggressive diabetes management in the SNF space Marylou will return to follow up with Betsey Andujar in 3 months and with me in 6 months, she is encouraged to contact me with any questions or concerns Assessment & Plan (06/13/2022 11:16 PM EST): Overall continues with very good control, we made no adjustments to insulin pump infusion settings today Marylou is now using CGM and she has more awareness of her blood sugar patterns, she is concerned about the elevations she is seeing but she was simply unaware of these glucose peaks after eating in the past, we discussed differences in capillary fingerstick and interstitial glucose readings and to expect differences in readings particularly when trend arrows are anything but straight across, following glucose patterns can lend insight into most appropriate dosing Marylou is encouraged to continue her efforts at healthy lifestyle and to continue to self monitor blood sugars Reviewed scanned routine labs dated Jun 08, 2022, - GFR 55, normal urine cr/microalbumin ratio, LDL modestly elevated at 113, this is stable compared to previous labs, on high intensity statin, no anemia, vit D normal, TSH in desired range Marylou will return to follow up with Betsey Andujar in August and with me in 6 months, she is encouraged to contact me with any questions or concerns Assessment & Plan (04/17/2022 10:59 AM EDT): Overall continues with very good control, we made no adjustments to insulin pump infusion settings today We discussed the benefits of the Dexcom which Marylou enjoyed using as a trial. Training provided today on Dexcom personal CGM use CGM will certainly provide her with more consistent information and reduce the burden of frequent fingerstick glucose monitoring, we briefly discussed benefits of insulin pump/CGM integrated systems and the options available currently Marylou is encouraged to continue her efforts at healthy lifestyle and to continue to self monitor blood sugars Marylou will return to meet with Dr. Lancaster as scheduled in May, she is encouraged to contact me with any questions or concerns Personal CGM training Type of Diabetes: Diabetes mellitus Type 1 Assessment/HPI: Marylou is here today for personal CGM training Procedures: Glucose Monitoring: Type of Sensor: Personal Dexcom G6 CGM Instruction: Patient Instructed on:, Calibrations, When to test BS, Troubleshooting, What to expect with the sensor, Patient instructed to remove sensor if redness, pain or bleeding occurs. Insertion Site Selected: left side of abdomen, discussed alternative sites and Dexcom's approved areas Site Prep: Insertion site wiped with alcohol. Insertion: completed, area looks good, no redness, no bleeding. Plan: Patient will remove sensor every 10 days, transmitter every 3 months and will follow up as scheduled in May Assessment & Plan (03/23/2022 11:21 AM EDT): Overall continues with very good control, we made no adjustments to insulin pump infusion settings today We discussed the benefits of the Dexcom which Marylou enjoyed using and would like an order placed CGM will certainly provide her with more consistent information and reduce the burden of frequent fingerstick glucose monitoring, we discussed benefits of insulin pump/CGM integrated systems and the options available currently Marylou is encouraged to continue her efforts at healthy lifestyle and to continue to self monitor blood sugars Reviewed scanned routine labs, though no recent BMP available in scanned labs to review, other labs from 04/2021- no microalbuminuria, LDL elevated at 107, on high intensity statin, no anemia Marylou will return to meet with Dr. Lancaster as scheduled in May, scheduling sooner visit for Dexcom aed trainer when receives system, she is encouraged to contact me with any questions or concerns Assessment & Plan (12/02/2021 10:41 AM EDT): Overall continues with very good control, we changed insulin pump infusion settings today as noted We discussed CGM options, Marylou will consider this, CGM would certainly provide her with more consistent information and reduce the burden of frequent fingerstick glucose monitoring, we discussed benefits of insulin pump/CGM integrated systems and the options available currently Marylou is given written information on all the pump/CGM options available currently, she is also encouraged to reach out to the pump companies directly for more information Marylou is encouraged to continue her efforts at healthy lifestyle and to continue to self monitor blood sugars Routine labs are up to date but not available for review, we have requested these Encouraged to discuss her long standing issues with fatigue with her PCP Marylou will return to meet with Betsey Andujar in 3 months and with me in 6 months, she is encouraged to contact me with any questions or concerns Assessment & Plan (05/29/2021 9:12 PM EST): Overall continues with very good control, we did not change insulin pump infusion settings today; the changes in ISF made after CGM pro have resulted in less hypoglycemia overnight, advised to continue to monitor for this and if this becomes an issue then we will adjust this again We discussed CGM options, Marylou will consider this, CGM would certainly provide her with more consistent information and reduce the burden of frequent fingerstick glucose monitoring Marylou is encouraged to continue her efforts at healthy lifestyle and to continue to self monitor blood sugars Marylou will return to meet with Betsey Andujar in 3 months and with me in 6 months, she is encouraged to contact me with any questions or concerns Assessment & Plan (11/28/2020 12:00 AM EDT): Overall continues with very good control, we did not change insulin pump infusion settings today Marylou is encouraged to continue her efforts at healthy lifestyle and to continue to self monitor blood sugars Marylou will return to meet with Betsey Andujar in 3 months and with me in 6 months, she is encouraged to contact me with any questions or concerns Assessment & Plan (05/28/2020 11:12 PM EST): Overall very good control but we identified some patterns of [id number] blood sugars, particularly high blood sugars after breakfast and tendency for low blood sugars overnight, we adjusted insulin pump settings to address these as noted Marylou is encouraged to try to continue her efforts at healthy lifestyle which has become more challenging as she struggles with increased stressors Marylou will return to meet with Betsey Andujar in 3 months and with me in 6 months, she is encouraged to contact me with any questions or concerns Assessment & Plan (08/19/2019 4:29 PM EST): Overall continues with stable consistent control Hypoglycemia risk is low however there has been more frequent hypoglycemia overnight, frequent monitoring helps Marylou to proactively manage her low blood sugars Changes were made to insulin pump settings to help reduce overnight hypoglycemia frequency Encouraged to call with questions Assessment & Plan (05/15/2019 1:15 PM EDT): Overall continues with stable consistent control Hypoglycemia risk is low and frequent monitoring helps Marylou to proactively manage this Encouraged to call with questions Assessment & Plan (02/11/2019 9:42 PM EDT): Continues with very consistent, good control No changes in insulin dosing were made today We discussed importance of insulin pump infusion set rotation Advised to continue to stay active Encouraged to call with any questions or concerns Assessment & Plan (10/31/2018 8:56 PM EDT): Marylou continues to monitor blood sugars frequently, and manages her insulin pump well She would benefit from CGM to further help her assess glucose patterns more effectively This patient has diabetes This patient has been using a blood glucose meter and performing 4 or more blood glucose readings daily This patient is insulin-treated with 3 or more daily injections OR a continuous subcutaneous insulin infusion pump This patient's insulin treatment regimen requires frequent adjustment by the patient on the basis of blood glucose meter readings or continuous glucose monitoring results This patient has had an in-person visit with the treating provider to evaluate diabetes control and determine criteria for CGM use This patient will return for follow up visits at least every 6 months to assess Adherence to CGM regimen, the effect of the current diabetes treatment regimen and to have insulin and medication therapy adjusted as needed for optimal outcome We discussed a consideration for a change in morning meal insulin dosing via insulin pump as noted Marylou is reassured that her control is quite good, her variability overall is reasonable, it is important to try to minimize hypoglycemia risk Marylou will consider attending a medical group visit Assessment & Plan (04/22/2018 8:36 PM EDT): Marylou continues to monitor blood sugars frequently and manages these quite well, we did not adjust her insulin pump settings today We discussed management of desserts after meals and Marylou is encouraged to try to find appropriate dosing for her favorites so that she can rely on more consistent results for these, encouraged to do her best for sweet treats that are less well known to her, advised to watch portions Encouraged to stay active Encouraged to call with any questions or concerns Assessment & Plan (10/18/2017 10:19 PM EDT): Overall very good blood sugar control on current insulin pump regimen We did not make any adjustments to insulin pump settings today but discussed some strategies to reduce morning postprandial blood sugar spike including prebolusing for breakfast by 10-15 minutes or testing if coffee is affecting blood sugars by omitting it in a few breakfasts We also discussed consideration for I:C ratio adjustment for breakfast if needed Advised to call with any questions or concerns Insulin pump in place 07/18/2017 Overview (05/19/2019): Pump upgraded to Medtronic 670G 05/19/19. Assessment & Plan (01/17/2025 2:54 PM EDT): Images from the original note were not included. We did not adjust insulin pump settings today We again briefly reviewed the benefits of CGM integrated insulin pump with automated function, Medtronic guardian sensor is covered by Medicare and would be available for Marylou; she continues on the Medtronic 780G which she started last fall, she continues to be frustrated by variability in her glucose patterns and we reviewed that these would likely be less significant if she used the integrated system however she prefers to continue on her current Dexcom sensor Having CGM is helpful for Marylou to make day to day adjustments in her lifestyle as well as identify patterns of hypo/hyperglycemia where insulin pump setting adjustments can be made; we discussed compression lows and importance of confirming readings in low range if these do not seem to correlate with recent patterns, insulin dosing or symptoms She is reassured that her control remains very good overall and to continue her excellent habits Assessment & Plan (10/13/2024 10:11 AM EDT): Images from the original note were not included. We did not adjust insulin pump settings today Advised to avoid correcting for blood sugars lower than 200 before bedtime, and recommended only giving a correction if blood sugars above 200, avoiding starting a temp basal rate while sleeping Having CGM is helpful for Marylou to make day to day adjustments in her lifestyle as well as identify patterns of hypo/hyperglycemia where insulin pump setting adjustments can be made She is reassured that her control is very good overall and to continue her excellent habits Assessment & Plan (07/04/2024 1:23 PM EST): Images from the original note were not included. We did not adjust insulin pump settings today We again reviewed the benefits of CGM integrated insulin pump with automated function, Medtronic guardian sensor is covered by Medicare and would be available for Marylou; she is now using the Medtronic 780G and we discussed some features of this automated algorithm, Marylou is also made aware that if she does not like automated mode then she can run this in manual mode but having an integrated system will have benefits anyway Marylou is agreeable to a change to Guardian CGM, she will contact [employer] Having CGM is helpful for Marylou to make day to day adjustments in her lifestyle as well as identify patterns of hypo/hyperglycemia where insulin pump setting adjustments can be made She is reassured that her control is good overall and to continue her excellent habits Assessment & Plan (04/12/2024 7:59 PM EDT): Current insulin pump setting (changes in bold) Time Basal Rates? Time ICR Time ISF Time Target IOB 12am 0.350u/hr 12am 11 12am 95 12am 110 mg/dl 4hrs 5am 0.425 9pm 22 9pm 95 9am 0.450 TOTAL 10.2u/day We loosened Marylou's target today to help reduce hypoglycemia risk with corrections We reviewed the benefits of CGM integrated insulin pump with automated function, Medtronic guardian sensor is covered by Medicare and would be available for Marylou; she will be due for insulin pump upgrade and has chosen to upgrade to Medtronic 780G, however for now she prefers the simplicity of Dexcom instead of using the guardian sensor, hopefully Medtronic's new sensor will be available soon which is expected to simplify the Medtronic sensor platform Having CGM is helpful for Marylou to make day to day adjustments in her lifestyle as well as identify patterns of hypo/hyperglycemia where insulin pump setting adjustments can be made She is reassured that her control is very good overall and to continue her excellent habits Assessment & Plan (12/28/2023 1:19 PM EDT): Current insulin pump setting Time Basal Rates? Time ICR Time ISF Time Target IOB 12am 0.350u/hr 12am 11 12am 95 12am 100 mg/dl 4hrs 5am 0.425 9pm 22 9pm 95 9am 0.450 TOTAL 10.2u/day We did not adjust insulin pump settings today We again reviewed the benefits of CGM integrated insulin pump with automated function, Medtronic guardian sensor is covered by Medicare and would be available for Marylou; she will be due for insulin pump upgrade this upcoming fall and will have either [employer] Tslim if she would prefer to use Dexcom or the Medtronic 780G with guardian sensor as options, either of these would likely provide more stable patterns with less prandial variability; she would like to discuss this at her upcoming visit in March Having CGM is helpful for Marylou to make day to day adjustments in her lifestyle as well as identify patterns of hypo/hyperglycemia where insulin pump setting adjustments can be made She is reassured that her control is very good overall and to continue her excellent habits Assessment & Plan (06/25/2023 11:35 PM EST): Current insulin pump setting Time Basal Rates? Time ICR Time ISF Time Target IOB 12am 0.350u/hr 12am 12 12am 95 12am 100 mg/dl 4hrs 5am 0.425 9pm 22 9pm 95 9am 0.450 TOTAL 10.2u/day We did not adjust insulin pump settings today Advised to contact [employer] if her insulin pump continues to malfunction, she will need a replacement We reviewed the benefits of CGM integrated insulin pump with automated function, [employer] guardian sensor is covered by Medicare and would be available for Marylou; she will be due for insulin pump upgrade next fall and will have either [employer] Tslim if she would prefer to use Dexcom or the [employer] 780G with guardian sensor as options, either of these would likely provide more stable patterns with less prandial variability Having CGM is helpful for Marylou to make day to day adjustments in her lifestyle as well as identify patterns of hypo/hyperglycemia where insulin pump setting adjustments can be made Assessment & Plan (12/15/2022 10:22 AM EDT): New insulin pump setting Time Basal Rates? Time ICR Time ISF Time Target IOB 12am 0.375u/hr 12am 12 12am 75 12am 100 mg/dl 4hrs 5am 0.425 9pm 22 9pm 95 9am 0.450 TOTAL 10.325u/day We made a change to I:C ratio throughout the day, this should reduce need for after meal correction doses, Marylou is advised to give insulin 10-15 minutes prior to eating if she is having a high carb choice like juice with her meal Having CGM is helpful for Marylou to make day to day adjustments in her lifestyle as well as identify patterns of hypo/hyperglycemia where insulin pump setting adjustments can be made Assessment & Plan (06/13/2022 11:20 PM EST): Current insulin pump setting Time Basal Rates? Time ICR Time ISF Time Target IOB 12am 0.375u/hr 12am 15 12am 75 12am 100 mg/dl 4hrs 5am 0.425 9pm 22 9pm 95 9am 0.450 TOTAL 10.325u/day We made no changes to settings today but we discussed appropriate adjustments to carb ratio if Marylou notes elevated readings after certain times of the day or realtime adjustments/overrides if she only finds that this occurs with certain meals Having CGM will help Marylou make day to day adjustments as well as identify patterns of hypo/hyperglycemia where setting adjustments can be made, we discussed some CGM features which are concerning to her but are in fact expected, advised not to calibrate sensor too often Assessment & Plan (04/17/2022 11:00 AM EDT): Current insulin pump setting Time Basal Rates? Time ICR Time ISF Time Target IOB 12am 0.375u/hr 12am 15 12am 75 12am 100 mg/dl 4hrs 5am 0.425 9pm 22 9pm 95 9am 0.450 TOTAL 10.325u/day We made no changes to settings today Having CGM will help Marylou make day to day adjustments as well as identify patterns of hypo/hyperglycemia where setting adjustments can be made Assessment & Plan (03/23/2022 11:10 AM EDT): Current insulin pump setting Time Basal Rates? Time ICR Time ISF Time Target IOB 12am 0.375u/hr 12am 15 12am 75 12am 100 mg/dl 4hrs 5am 0.425 9pm 22 9pm 95 9am 0.450 TOTAL 10.325u/day We made no changes to settings today Having CGM will help Marylou make day to day adjustments as well as identify patterns of hypo/hyperglycemia where setting adjustments can be made Briefly reviewed systems integrated with Dexcom G6 We reviewed considerations regarding unexplained hyperglycemia despite corrections with insulin pump, reviewing changing insulin pump site/resevoir and further considerations if blood sugars do not improve despite intervention Assessment & Plan (12/02/2021 10:38 AM EDT): New insulin pump setting Time Basal Rates? Time ICR Time ISF Time Target IOB 12am 0.375u/hr 12am 15 12am 75 12am 100 mg/dl 4hrs 5am 0.425 9pm 22 9pm 95 9am 0.450 TOTAL 10.325u/day We discussed adjusting I:C ratio to 15 for the daytime meals/snacks, Marylou will continue to adjust this as needed based on her meal quality Marylou is advised to trial adjustment of I:C ratio to 12 manually for a short time to assess the effect of this, she has been calculating her breakfast meal boluses at a ratio of 15 although her carb ratio has been set at 18, this adjustment still results in prandial elevations after breakfast often We had a very lengthy discussion about insulin pump and CGM options, integration of pump/CGM in hybrid closed loop, Marylou was given some written material Assessment & Plan (05/29/2021 9:09 PM EST): Current insulin pump setting Time Basal Rates? Time ICR Time ISF Time Target IOB 12am 0.375u/hr 12am 18 12am 75 12am 100 mg/dl 4hrs 5am 0.425 9pm 95 9am 0.450 TOTAL 10.325u/day Based on blood sugar data we reviewed together, we did not adjust insulin pump settings today Marylou is encouraged to continue to self monitor blood sugars frequently We had a long discussion regarding CGM options and integrated vs independent CGMs, Marylou is encouraged to consider these and to contact [employer] or her insurer to inquire about coverage for the guardian sensor Assessment & Plan (11/27/2020 11:53 PM EDT): Current insulin pump setting Time Basal Rates? Time ICR Time ISF Time Target IOB 12am 0.375u/hr 12am 18 12am 75 12am 100 mg/dl 4hrs 5a 0.425 9a 0.450 Based on blood sugar data we reviewed together, we did not adjust insulin pump settings today Marylou is encouraged to continue to self monitor blood sugars frequently Marylou is given sample skin barrier wipes which may help in protecting her skin from infusion set adhesive related irritation Assessment & Plan (05/28/2020 11:04 PM EST): New insulin pump setting Time Basal Rates? Time ICR Time ISF Time Target IOB 12am 0.375u/hr 12am 18 12am 75 12am 100 mg/dl 4 hrs 5a 0.425 5am 16 9a 0.450 9am 18 Based on blood sugar data we reviewed together, we discussed changes to overnight basal rate to help reduce risk for nocturnal hypoglycemia, we also discussed adjusting the I:C ratio for breakfast based on morning postprandial blood sugar patterns Marylou is encouraged to evaluate the effect of corrections of elevated blood sugars particularly late at night/overnight, if this is in fact responsible for risk for hypoglycemia overnight then adjustment to ISF may be appropriate Assessment & Plan (08/19/2019 4:31 PM EST): New insulin pump setting Time Basal Rates? Time ICR Time ISF Time Target IOB 12am 0.4u/hr 12am 20 12 am 75 12 am 100 mg/dl 4 hrs 5a 0.425 9a 0.45 Changes in overnight basal rate were made to reduce risk of low blood sugars, advised to continue to monitor blood sugars regularly Assessment & Plan (05/15/2019 1:14 PM EDT): We did not adjust insulin pump settings today Will return for new insulin pump start next week Assessment & Plan (02/11/2019 9:40 PM EDT): We did not adjust insulin pump settings today Insulin pump upgrade process was discussed, advised to attend Diabetes Tech 101 class to learn more about the technology available Questions regarding CGM were addressed in group setting Assessment & Plan (10/31/2018 8:41 PM EDT): Current insulin pump setting Time Basal Rates? Time ICR Time ISF Time Target IOB 12am 0.25u/hr 12am 1:17 12 am 1:60 12 am 100 mg/dl 4 hrs 3a 0.450 5a 13 5a 0.65 11a 12 9a 0.15 4p 16 3p 0.175 5p 0.25 9p 0.325 10p 0.025 We discussed the rise in blood sugars after breakfast, may consider a change to I:C ratio in morning time from 13 to 12 Encouraged to continue to rotate insulin infusion sets We discussed insulin pump/CGM integration which is currently covered by Medicare Assessment & Plan (04/22/2018 8:16 PM EDT): Current insulin pump setting Time Basal Rates Time ICR Time ISF Time Target IOB 12am 0.025u/hr 12am 1:17 12 am 1:60 12 am 100mg/dl 4hrs 3am 0.45u/hr 5am 1:13 5am 0.7u/hr 11am 1:12 9am 0.175u/hr 4pm 1:16 3pm 0.2u/hr 5pm 0.275u/hr 9pm 0.325u/hr 10pm 0.025u/hr We did not adjust insulin pump settings today Assessment & Plan (10/18/2017 10:20 PM EDT): Discussed importance of infusion set rotation which Marylou reports she is doing Resolved Problems Problem Noted Date Diagnosed Date Resolved Date Insulin pump fitting or adjustment 05/19/2019 05/29/2021 Encounters Date Type Department Care Team Description 01/16/2025 9:40 AM EDT Office Visit [facility] [address] [place] [address] Silvia Lancaster MD 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); Insulin pump in place 01/09/2025 Telephone [facility] [place] [address] [place] [address] Silvia Lancaster MD Lab Order 11/27/2024 Telephone [facility] [address] [place] [address] Janell Zelaya MA Medication Management from Last 3 Months Immunizations Immunization Administration Dates Next Due COVID-19 (Pre-05/14) Pfizer Vaccine, mRNA, PF 09/24/2020,09/03/2020 Influenza High-Dose Quadriva lent Preservative Free IM 04/05/2022 Influenza High-Dose Trivalen t Preservative Free IM 05/18/2021,04/12/2020,07/02/2019,2016 Influenza Trivalent w/ Prese rvative IM 05/23/2013 Pneumococcal conjugate PCV13 02/03/2016 Family History Medical History Relation Comments Cancer Father CV disease Mother Nephritis Sister 1 Thyroid disease Sister 2 Relation Status Comments Father Mother Sister 1 Sister 2 Social History Tobacco Use Types Packs/Day Years Used Date Smoking Tobacco: Never Passive Smoke Exposure: Never Smokeless Tobacco: Never Tobacco Cessation:Counseling Given: No Alcohol Use Standard Drinks/Week Comments Yes 3 (1 standard drink = 0.6 oz pur e alcohol) Education Answer Date Recorded Are you interested in more education? Not on nell e 11/17/2022 Are you concerned about learning? Not on file 11/17/2022 No 11/17/2022 No 11/17/2022 Digital Access Answer Date Recorded No 12/15/2022 No 12/15/2022 Reliable internet access at home? Not on file 12/15/2022 Device with a working camera? Not on file Comments Unknown Sex and Gender Information Value Date Recorded Sex Assigned at Female 11/20/2019 7:49 PM EDT Legal Sex Female 10:38 PM EDT Gender Identity Female 11/20/2019 7:49 PM EDT Sexual Orientation Not on file Last Filed Vital Signs Vital Sign Reading Time Taken Comments Blood Pressure 134/72 01/16/2025 9:32 AM EDT Pulse 68 01/16/2025 9:32 AM EDT Temperature 36.4 C (97.5 F) 06/25/2023 10:24 AM EST Respiratory Rate 12 07/26/2021 1:54 PM EST Oxygen Saturation 99% 01/16/2025 9:32 AM EDT Inhaled Oxygen Concentration - - Weight 62.5 kg (137 lb 12.8 oz) 01/16/2025 9:32 AM EDT Height 162.6 cm (5' 4.02 ) 01/16/2025 9:32 AM ED T Body Mass Index 23.64 01/16/2025 9:32 AM EDT Plan of Treatment Upcoming Encounters Date Type Department Care Team (Late st Contact Info) Description 04/16/2025 8:40 AM EDT Office Visit [facility] [address] [place] [address] [place] [address] lAix Perez CNP [address] [place] [id number] 07/13/2025 1:20 PM EST Office Visit [facility] [address] [place] [address] [place] [address] Silvia Lancaster MD [address] [place] [id number] Health Maintenance Due Date Last Done Comments Adult Td,Tdap Booster 1940 DEPRESSION SCREENING 1952 ZOSTER VACCINES (1 of 2) 1990 OSTEOPOROSIS SCREENING INITIAL (ONE-TIME) 2005 RSV VACCINE (1 - 1-dose 75+ series) 2015 PNEUMOCOCCAL VACCINES (50+ years) (2 of 2 - PPSV23) 03/30/2016 02/03/2016 DIABETIC EYE EXAM 07/18/2017 URINE MICROALBUMIN/CREATININE RATIO 06/08/2023 06/08/2022, 10/05/2017 COVID-19 VACCINE ( - 2023- season) 2024 07/18/2021, 09/24/2020, 09/03/2020 HEMOGLOBIN A1C 04/15/2025 10/13/2024, 06/23, 04/09/2024, Additional history exists BLOOD PRESSURE 07/18/2025 01/16/2025 HEPATITIS A VACCINES Aged Out No long er eligible based on patient's age to complete this topic HIB VACCINES Aged Out No longer eligi ble based on patient's age to complete this topic MENINGOCOCCAL VACCINES (ACWY) Aged Out No longer eligible based on patient's age to complete this topic MENINGOCOCCAL VACCINES (B) Aged Out N o longer eligible based on patient's age to complete this topic Medical Devices Not on file Procedures Procedure Name Priority Date/Time Associated Diagnosis Comments HEMOGLOBIN A1C Routine 01/14/2025 9:52 AM EDT Type 1 diabetes mellitus with polyneuropathy POCT HEMOGLOBIN A1C Routine 10/13/2024 9 :13 AM EDT Type 1 diabetes mellitus with polyneuropathy Insulin pump in place OUTSIDE URINE MALB/CRE RATIO Routine 10/05/2017 from Last 3 Months or Most Recently Relevant to Health Maintenance Results * Hemoglobin A1c (01/14/2025 9:52 AM EDT) Blood us Silvia Lancaster MD LAB BLOOD ORDERABLES Final Resu lt EXTERNAL NON-INTERFACED REF LAB * (ABNORMAL) POCT Hemoglobin A1c (10/13/2024 9:13 AM EDT) Hemoglobin A1c 7.5(A) 4.2 - 5.8 % [facility] Other 10/13/2024 9:13 AM EDT us Alix Perez CNP POINT OF CARE TEST ORDERABLES Final Result [facility] [address] [place] [address], [facility] * Outside Urine MALB/Cre Ratio (10/05/2017) Microalbumin/Cr eatinine Ratio, urine - External 5.2 us Historical Provider LAB BLOOD ORDERABLES Grazyna l Result from Last 3 Months or Most Recently Relevant to Health Maintenance Insurance [employer] SUPPLEMENT MEDICARE PART A & B FULDA [employer]OSS MEDEX SUPPLEMENT MEDICARE PART A & B [employer] MEDEX SUPPLEMENT BL[employer] MEDEX SUPPLEMENT [employer] MEDEX SUPPLEMENT MEDICARE PART A & B [employer] MEDEX SUPPLEMENT [employer] MEDEX SUPPLEMENT MEDICARE PART A & B [employer] MEDEX SUPPLEMENT MEDICARE PART A & B [employer] MEDEX SUPPLEMENT MEDICARE PART A & B Care Teams Personnel Monitor Relationship Specialty Start Date End Date Lamine Baugh MD [address] [place] [id number] PCP - General Internal Medicine 10/13/24 Additional Source Comments The information contained in this document represents components of the legal health record. It is not the complete legal health record.[facility]
== END 2025-02-25 10:42 | disposition home or self-care (01) ==
LOC: HO.HMCSH 09:46
PROVIDERS: PCP Internal Medicine; Visit Provider Physician Assistant Medical
DX: H61.891 Other specified disorders of right external ear (principal); H91.93 Unspecified hearing loss, bilateral; H61.23 Impacted cerumen, bilateral

== ENCOUNTER → 2025-02-25 09:46 | Outpatient (BNVA) | payer MEDICARE, SELFPAY | PROVIDERS: PCP Internal Medicine; Visit Provider Physician Assistant Medical | DX: H61.893 Other specified disorders of external ear, bilateral (principal); H61.23 Impacted cerumen, bilateral | CPT/HCPCS: 69209; 96127; 99212 ==

== ENCOUNTER 2025-03-31 08:34 | Outpatient (AMB) | payer MEDICARE, SELFPAY ==
[2025-03-31 08:40] VITALS: BP 155/68; PULSE 76; RESP 14; TEMP 36.8; O2SAT 96; BMI 25.5
--- NOTE | 2025-03-31 08:40 | A.OFFPC_ITS ---
Vital Signs 03/31/25 08:40 Height 5 ft 1.5 in Weight 137 lb BMI 25.5 BP 155/68 H Respiration 14 Pulse 76 Pulse Source Pulse Oximeter Temp 98.3 F Temp Source Temporal Artery Scan Pulse Oximetry (%) 96 Oxygen Delivery Method Room Air Intake Visit Reasons: 6 month follow up Md Do Resident Urgent Care Required: No Accompanied by: Self / Same As Patient Allergies No Known Allergies Allergy (Verified 03/31/25 09:24) Medication List - Last Reconciled 03/31/25 by Lamine Baugh MD aspirin (Adult Low Dose Aspirin) 81 mg PO DAILY blood sugar diagnostic As directed cholecalciferol (vitamin D3) 25 mcg PO DAILY insulin aspart U-100 25 - 40 units subcut DAILY ketorolac 0.5% 1 drp ophthalmic-Right TID lancets As directed psyllium husk (Metamucil) 1 tbsp PO BID rosuvastatin 40 mg PO DAILY Tobacco use date assessed: 03/31/25 Dental Screening Dental Screen Date: 02/25/25 HPI 6 month follow up HPI Details 84-year-old female presents to the offic e to discuss her chronic medical conditions. During the blood draw, accidentally her CBC was not drawn. Patient would like to get this lab repeated. Patient would like to get a screening DEXA scan for osteoporosis. Since her ears were flushed, she is complaining of decreased hearing. She has had a trial of prednisone and ear drops to no avail. Her hearing has been declining even prior to the event of flushing. She feels that her symptoms have been exacerbated after the ears were flushed. [facility] Medical History Hard of hearing Irritation of external ear canal Cough 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 Diabetes mellitus Osteoporosis Surgical History History of colonoscopy (~06/03/10) History of surgery History of arthroplasty of left knee History of appendectomy History of wisdom tooth extraction History of tonsillectomy and adenoidectomy Family History Father Cancer Mother Dementia Heart problem Maternal Aunt Breast cancer Social History Household Members: None Housing: House Alcohol intake: current Alcohol intake frequency: holidays/special occasions only Alcohol type: wine Patient Tobacco Use Status: Never used Tobacco service: No Current occupational status: retired Cognitive needs: No Hearing needs: No Vision needs: No Questionnaire PHQ-9 Over the last 2 weeks, how often have you been bothered by any of the following problems? 1. Little interest or pleasure in doing things: not at all 2. Feeling down, depressed, or hopeless: not at all 3. Trouble falling or staying asleep, or sleeping too much: not at all 4. Feeling tired or having little energy: not at all 5. Poor appetite or overeating: not at all 6. Feeling bad about yourself - or that you are a failure or have let yourself or your family down: not at all 7. Trouble concentrating on things, such as reading the newspaper or watching television: not at all 8. Moving or speaking so slowly that other people could have noticed. Or the opposite - being so fidgety or restless that you have been moving around a lot more than usual: not at all 9. Thoughts that you would be better off or of hurting yourself in some way: not at all Total score: 0 Depression Screening Interpretation: Negative Depression Screening Done: Yes 23906 - PHQ-9 Billing: Yes Source: Developed by Drs. Elie Lucas, Greta Carlin, Sumit Yang and colleagues, with an educational zahraa from [employer]. Thrive Questionnaire Date Thrive assessed: 02/25/25 I am a: Patient What is your living situation today?: I have a steady place to live Within the past 12 months, did the food you bought not last and you didn't have the money to get more?: Never true Within the past 12 months, did you worry whether your food would run out before you got money to buy more?: Never true Do you have trouble paying for medicines?: No Do you have trouble getting transportation to medical appointments?: No Do you have trouble paying your heating and electricity bill?: No Do you have trouble taking care of your child, family member or friend?: No Do you have trouble with day-to-day activities such as bathing, preparing meals, shopping, managing finances, etc.?: No Are you currently unemployed and looking for a job?: No Are you interested in more education?: No Please select the resources that you would like help with: None THRIVE Score: 0 AUDIT C Alcohol Use Questionnaire (AUDIT-C) 1. How often do you have a drink containing alcohol?: Never 3. How often do you have six or more drinks on one occasion?: Never Total Score: 0 Score Reviewed/Action Taken: No WIN-7 AMB Questionnaire WIN-7 Date WIN - 7 assessed: 02/25/25 Feeling nervous, anxious, or on edge: 0 = Not at all Not being able to stop or control worryin = Not at all Worrying too much about different things: 0 = Not at all Trouble relaxin = Not at all Being so restless that it is hard to sit still: 0 = Not at all Becoming easily annoyed or irritable: 0 = Not at all Feeling afraid as if something awful might happen: 0 = Not at all Total WIN-7 score (0-4 normal; 5-9 mild; 10-14 moderate; 15-21 severe): 0 Source: Developed by Drs. Elie Lucas, Greta Carlin, Sumit Yang and colleagues, with an educational zahraa from [employer]. WIN-7 Assessment Billing WIN-7 Assessment Tool: WIN-7 Assessment 35801 Physical exam (Primary Care) Vital Signs: Last Vital Signs Temp 98.3 F 03/31/25 08:40 Pulse 76 03/31/25 08:40 Resp 14 03/31/25 08:40 BP 155/68 H 03/31/25 08:40 Pulse Ox 96 03/31/25 08:40 Oxygen Delivery Method Room Air 03/31/25 08:40 BMI result Body Mass Index 25.5 Tobacco/Smoking Status: Tobacco use Status Tobacco use date assessed 03/31/25 03/31/25 08:46 Patient Tobacco Use Status Never used Tobacco 03/31/25 08:46 PHQ-9: PHQ-9 Score PHQ-9: Total score 0 03/31/25 08:46 Depression Screening Interpretation: Negative Thrive Assessment: Date of Thrive Assessment Date Thrive assessed 02/25/25 03/31/25 08:46 Const General: cooperative and healthy appearing Nutritional Appearance: well nourished Orientation/consciousness: patient oriented x3 Limitations: no limitations HENMT Head: Yes normal to inspection Eyes General: appearance normal, both eyes and all related structures Neck Neck: Yes normal visual inspection Chest Chest palpation & inspection: normal palpation of entire chest wall Resp Effort & Inspection: normal respiratory effort Neuro General: patient oriented x3 Coding Level of Care Code Est Pt Level 4 (27903) Complex EM visit Add On G2211 Diagnoses Diabetes mellitus E11.9 Hard of hearing H91.90 Additional Codes WIN-7 Assessment Billing - WIN-7 Assessment Tool: WIN-7 Assessment 84661 ([id number]) PHQ-9 - 42143 - PHQ-9 Billing: Yes ([id number]) Assessment & Plan Assessment & Plan (1) Diabetes mellitus: Code(s): E11.9 - Type 2 diabetes mellitus without complications Category: Medical Plan: CBC has been drawn again. (2) Hard of hearing: Code(s): H91.90 - Unspecified hearing loss, unspecified ear Category: Medical Plan: Patient has a scheduled appointment for testing her hearing. Orders: Orders Complete Blood Count no Diff Today E11.9 - Type 2 diabetes mellitus without complications XR DEXA axial skeleton Today M81.0 - Age-related osteoporosis without current pathological fracture
== END 2025-03-31 09:22 | disposition home or self-care (01) ==
LOC: HO.HMCSH 08:34
PROVIDERS: PCP Internal Medicine; Visit Provider Internal Medicine
DX: E11.9 Type 2 diabetes mellitus without complications (principal); H91.90 Unspecified hearing loss, unspecified ear

== ENCOUNTER → 2025-03-31 08:34 | Outpatient (BNVA) | payer MEDICARE, SELFPAY | PROVIDERS: PCP Internal Medicine; Visit Provider Internal Medicine | DX: E11.9 Type 2 diabetes mellitus without complications (principal); H91.90 Unspecified hearing loss, unspecified ear | CPT/HCPCS: 96127; 99212 ==

== ENCOUNTER 2025-05-29 10:52 | Outpatient (REF) | payer MEDICARE, SELFPAY ==
--- NOTE | ~2025-05-29 | MM_ITS ---
EXAMINATION: MM SCREENING DIGITAL BREAST TOMOSYNTHESIS, BILATERAL CLINICAL INFORMATION: Screening. Asymptomatic. COMPARISON: Mammography: Comparison is made with available priors TECHNIQUE: Digital breast mammography with tomosynthesis is performed in both the craniocaudal and mediolateral oblique views along with computer-aided detection (CAD). FINDINGS: The breasts are heterogeneously dense, which may obscure small masses. There are no significant masses, abnormal calcifications, or other abnormalities. MM/MM tomosynthesis screening BI IMPRESSION: No mammographic evidence of malignancy. ASSESSMENT: BI-RADS Category 1: Negative RECOMMENDATION: Routine annual mammography screening. 1 year F/U This examination should not preclude the clinical evaluation of a suspicious palpable abnormality. This patient's information was entered into a reminder system with a target due date for their next mammogram. Electronically signed by: Khloe Dent DO 06/02/2025 10:24 AM ANA
--- OUTSIDE RECORDS SUMMARY | 2025-05-29 12:58 | XMS_ITS | Clinical Summary ---
Author Organization [facility] Address [address] [facility] [address] [place] [address] Phone Care Team Providers Care Technician Support Engineer Name Role Phone Lamine Baugh MD Primary Care Provid er Allergies No known active allergies Medications aspirin 81 MG EC tablet 1 tablet Active insulin pump syringe 3 mL Misc as directed 11/25/19 17 Active infusion set for insulin pump ISet as directed 09/14/19 12 Active Medication-Free Text 1,000 mg 2 (two) times a day. Pro DHA Eye Active rosuvastatin (CRESTOR) 40 MG tablet Take 40 mg by mouth daily. Patient reports ta Active ONETOUCH DELICA LANCETS 30 gauge MiscIndications:Ty pe 1 diabetes mellitus with polyneuropathy 1 each by Miscellaneous route 3 (three) times a day before meals. DX:E10.42 300 each 3 12/03/19 22 Active vitamin A,C,L-dnte-dgifzr (OCUVITE PRESERVE) 2,148 mcg-113 mg-45 mg-17.4mg Tab [...] DX:E10.42 40 mL 3 01/17/20 25 Active DEXCOM G6 SENSOR DeviIndications:Ty pe 1 diabetes mellitus with polyneuropathy 1 each by Miscellaneous route Every 10 Days. 3 each 03/19/20 25 Active cholecalciferol (VITAMIN D3) 25 MCG (1,000 unit) tablet Take 1,000 Units by mouth daily. Active Active Problems Problem Noted Date Diagnosed Date Dry eyes, bilateral 04/22/2018 Assessment & Plan (04/22/2018 8:46 PM EDT): Struggling with dry eyes and dry mouth for 2 years, seeing industrial safety engineer and therapy has not been helpful Sicca syndrome, ?sjogrens, possibly increased likelihood due to her personal autoimmune disease history Type 1 diabetes mellitus with polyneuropathy Overview (10/18/2017): DIABETES HISTORY Diagnosis - type 1 diabetes, dx in 1969 Treatment history - insulin pump 1999 Assessment & Plan (04/16/2025 10:15 AM EDT): Overall continues with very good control, concern for nocturnal hypoglycemia following late night corrections, especially if BG is high 100s/low 200s Adjustments made as noted to correction factor, advised to not give correction if BG is <215 before bed Marylou continues using CGM and she continues to self monitor fingerstick blood sugars, we discussed the new Medtronic CGMs, one that is available now called the Simplera Sync and the Instinct CGM that is set to come out in May, [employer] Pathway team number provided and Marylou plans to reach out, though she is apprehensive on making a change to CGM at this time so we discussed this can be further addressed at next visit Marylou would like to meet with a dietitian due to her weight concerns, we discussed that she is at a very healthy weight, she reports that most weight is noticed in her belly, which is the primary area for pump site/CGM, we discussed trying alternative sites to help reduce potential lipohypertrophy that could be leading to more fatty deposits in her abdomen, visit scheduled with Asia Jeff next week Up to date on eye and foot care Marylou is encouraged to continue her efforts at healthy lifestyle Marylou will return to follow up with Dr. Lancaster in 3 months and with me in 6 months, she is encouraged to contact me with any questions or concerns Assessment & Plan (01/17/2025 2:58 PM EDT): [...] more challenging in her current living situation Marylou continues to give after meal corrections [...] to discuss this at next visit with social media project manager or with Alix Perez if time permits [...] integrated CGMs, Marylou prefers to remain with Medtronic, and their current CGM is rather difficult to learn, but [employer] did announce their Simplera CGM will be soon available, so this may be a better option for Marylou to remain on the Medtronic system and eventually have an integrated CGM [...] sets and preferably get supplies directly from medtronic, I discussed we can look into this [...] as well, advised to discuss this with [employer] so that insulin pump can be replaced [...] in May, scheduling sooner visit for Dexcom computer technology trainer when receives system, she is encouraged [...] control but we identified some patterns of [id number] blood sugars, particularly high blood sugars after [...] to Medtronic 670G 05/19/19. Assessment & Plan (04/16/2025 10:14 AM EDT): Images from the original note were not included. Adjusted 9pm correction factor to 105 to give less insulin with bedtime correction, advised to be conservative with bedtime corrections We again briefly reviewed the benefits of CGM integrated insulin pump with automated function, she continues to be frustrated by variability in her glucose patterns and we reviewed that these would likely be less significant if she used the integrated system however she prefers to continue on her current Dexcom sensor, reviewed the newer integrated CGMs with the Medtronic system and discussed that these will be simpler options compared to the Guardian 4 Having CGM is helpful for Marylou to make day to day adjustments in her lifestyle as well as identify patterns of hypo/hyperglycemia where insulin pump setting adjustments can be made She is reassured that her control remains very good overall and to continue her excellent habits Assessment & Plan (01/17/2025 2:54 PM EDT): [...] discussed some features of this automated algorithm, Maryolu is also made aware that if she does not like automated mode then she can run this in manual mode but having an integrated system will have benefits anyway Marylou is agreeable to a change to Guardian CGM, she will contact [employer] Having CGM is helpful for Marylou to [...] instead of using the guardian sensor, hopefully [employer]'s new sensor will be available soon which [...] encouraged to consider these and to contact [employer] or her insurer to inquire about coverage [...] Encounters Date Type Department Care Team Description 04/23/2025 1:00 PM EDT Nutrition [facility] [address] [facility] [place] [place] [phone] Asia Jeff LDN 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); Insulin pump in place 04/16/2025 8:40 AM EDT Office Visit [address] [place] [address] Alix Perez CNP 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); Insulin pump in place 03/19/[address] [place] [address] Silvia Lancaster MD Replacement Sensor (Replacement Sensor) 03/09/[address] [place] [address] Asia Jeff LDN Help with pump (Help with pump) 03/06/[address] [place] [address] Silvia Lancaster MD New Pump / Sensors; Patient Returned Call 03/04/2025 11:00 AM EDT Nutrition [address] [place] [address] Asia Jeff LDN 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); Insulin pump in place from Last 3 Months Immunizations Immunization Administration Dates Next Due COVID-19 (Pre-05/14) Pfizer Vaccine, mRNA, PF 09/24/2020,09/03/2020 INFLUENZA, SPLIT VIRUS, TRIV ALENT W/ PRESERVATIVE IM 05/23/2013 Influenza High-Dose Quadriva lent Preservative Free IM 04/05/2022 Influenza High-Dose Trivalen t Preservative Free IM 05/18/2021,04/12/2020,07/02/2019,2016 Pneumococcal conjugate PCV13 02/03/2016 Family History Medical [...] Sign Reading Time Taken Comments Blood Pressure 112/62 04/16/2025 8:34 AM EDT Pulse 72 04/16/2025 8:34 AM EDT Temperature 36.4 C (97.5 F) 06/25/2023 10:24 AM EST Respiratory Rate 12 07/26/2021 1:54 PM EST Oxygen Saturation 99% 04/16/2025 8:34 AM EDT Inhaled Oxygen Concentration - - Weight 62.6 kg (138 lb) 04/16/2025 8:34 AM EDT Height 162.6 cm (5' 4.02 ) 04/16/2025 8:34 AM ED T Body Mass Index 23.68 04/16/2025 8:34 AM EDT Plan of Treatment Upcoming Encounters Date Type Department Care Team (Late st Contact Info) Description 07/13/2025 1:20 PM EST Office Visit [facility] [address] [place] [address] [place] [address] Silvia Lancaster MD [address] [place] [address], [address] [place] [address] 10/15/2025 9:20 AM EDT Office Visit [facility] [address] [place] [address] [place] [address] Alix Perez CNP [address] [place] [address], [address] [place] [address] Health Maintenance Due Date Last Done Comments Adult Td,Tdap Booster 1940 DEPRESSION SCREENING 1952 ZOSTER VACCINES (1 of 2) 1990 OSTEOPOROSIS SCREENING INITIAL (ONE-TIME) 2005 RSV VACCINE (1 - 1-dose 75+ series) 2015 PNEUMOCOCCAL VACCINES (50+ years) (2 of 2 - PPSV23, PCV20, or PCV21) 03/30/2016 02/03/2016 DIABETIC EYE EXAM 07/18/2017 URINE MICROALBUMIN/CREATININE RATIO 06/08/2023 06/08/2022, 10/05/2017 INFLUENZA VACCINE (#1) 2025 , 05/09/2023, 05/09/2023, Additional history exists COVID-19 VACCINE ( season) 2025 07/18/2021, 09/24/2020, 09/03/2020 BLOOD PRESSURE 10/14/2025 04/16/2025 HEMOGLOBIN A1C 10/14/2025 04/16/2025, 09/21, 07/11/2024, Additional history exists HEPATITIS A VACCINES Aged Out No long [...] Procedure Name Priority Date/Time Associated Diagnosis Comments POCT HEMOGLOBIN A1C Routine 04/16/2025 8 :56 AM EDT Type 1 diabetes mellitus with polyneuropathy OUTSIDE URINE MALB/CRE RATIO Routine 10/05/2017 from Last 3 Months or Most Recently Relevant to Health Maintenance Results * (ABNORMAL) POCT Hemoglobin A1c (04/16/2025 8:56 AM EDT) Hemoglobin A1c 7.0(A) 4.2 - 5.6 % [employer] [facility] Other 04/16/2025 8:56 AM EDT Alix Perez SEAFOOD PROCESS WORKER LAB POCT ENTER/EDIT ORDERABLE S Final Result Performing Organization Address City/State/[facility] Co de Phone Number [facility] [address] [place] [address], [facility] * Outside Urine MALB/Cre Ratio (10/05/2017) Microalbumin/Cr eatinine Ratio, urine - External 5.2 Historical Provider LAB BLOOD ORDERABLES Grazyna l Result from Last 3 Months or Most Recently Relevant to Health Maintenance Insurance upad [employer] MEDEX SUPPLEMENT MEDICARE PART A & B [employer] MEDEX SUPPLEMENT MEDICARE PART A & B [employer] MEDEX SUPPLEMENT [employer] MEDEX SUPPLEMENT [employer] MEDEX SUPPLEMENT MEDICARE PART A & B [employer] MEDEX SUPPLEMENT [employer] MEDEX SUPPLEMENT MEDICARE PART A & B Member Subscriber Plan / Payer (Ef fective 2005-Present) Name:Marylou Daniels Member ID:[id number] Relation to Subscriber:Self Name:Marylou Daniels Subscriber ID:[id number] Payer ID:[id number] Group ID:Not on file Type:Medicare Address: [employer] [address] [place] [id number] [employer] MEDEX SUPPLEMENT MEDICARE PART A & B [employer] MEDEX SUPPLEMENT MEDICARE PART A & B Care Teams Technician Support Engineer Relationship Specialty Start Date End Date Lamine Baugh MD [address] [place] [id number] PCP - General Internal Medicine 10/13/24 Additional Source Comments The information contained in this document represents components of the legal health record. It is not the complete legal health record.[facility]
--- OUTSIDE RECORDS SUMMARY | 2025-05-29 12:58 | XMS_ITS | Data Portability ---
Author Organization [place] - [facility], Allergy Address [address] [address] Care Team Providers Care Covered Button Maker Name Role Phone ZOYA HATFIELD Primary Care Provider Assessment Encounter Date Assessment Date Assessment LastModified [...] Modified Time Details Appointments Establish ed 15 2025 01:15P Hannah LIVE PA-C Not available Not available Not [...] Name and Address Organization Details Recorded Time Impacted cerumen of bilateral ears [id number] Active 2022 Impacted cerumen, bilateral ; Note: Date Diagnosed : 11/29/2022 12:29 PM (H61.23) Not Available [facility] 4 03:01:56 Sensorine ural hearing loss of bilateral ears [id number] Active 2022 Sensorine ural hearing loss, bilateral ; Note: Date Diagnosed : 3 9:55 AM (H90.3) Not Available [facility] 4 03:01:54 Problem Notes None recorded. Procedures Surgical History Date Name Laterality Status Provider Name and Address Organization Details Recorded Time 12/13/19 25 Comp Audio with Tymps - 53437 & 26723 completed STEVO JORGENSEN 100 [facility],[address], [address], [facility] 12/12/2024 10:07:00 12/13/19 25 Cerumen removal without microscope bilat completed MARY LIVE PA-C 100 [facility],[place] [address], [place], [address], [facility] 12/12/2024 10:24:28 06/13/20 24 Cerumen removal without microscope bilat completed MARY LIVE PA-C 100 [facility], [place], [address], [place] - [facility] 06/13/2024 11:46:40 12/05/19 24 Cerumen removal without microscope bilat completed MARY LIVE PA-C 100 [facility] [address], [place], [address], [place] - [facility] 12/05/2023 10:24:35 tonsillectomy and adenoidectomy completed Veronica Agudelo [place] - [facility] 06/13/2024 10:22:57 arthroscopy of knee completed Veronica Agudelo [facility] 06/13/2024 10:23:15 Imaging Results None recorded. [...] 0.5 mg tablet active Medicati on ID: [id number] B rand Name: lorazepa m Send Method: E-Prescr ibed Sub s Allowed: subs OK Medic ationGen ericName : lorazepa m Not Available Not Available Not Available Aspirin Childrens 81 mg chewable tablet active Medicati on ID: [id number] B rand Name: Aspirin Children s Send Method: E-Prescr ibed Sub s Allowed: subs OK Medic ationGen ericName : Aspirin Children s Not Available Not Available Not Available Novolog U-100 Insulin aspart 100 unit/mL subcutane ous solution INJECT 25 TO 40 UNITS DAILY DX:E10.4 2 active Not Available Not Available No t Available rosuvasta tin 20 mg tablet 06/13 completed Medicati on ID: [id number] B rand Name: rosuvast atin Sen d [...] Updated DateTime 12/05/2023 162.56 cm 21.5 kg/m2 81055.05 g Bridget Garcia [place] - [facility] 12/05/2023 09:45:00 Date Recorded Body height Body mass index (BMI) Body weight Provider Name and Address Organization Details Last Updated DateTime 12/12/2024 162.56 cm 22.3 kg/m2 67270.01 g Heide Landry [place] - [facility] 12/12/2024 09:15:59 Date Recorded Body height Body weight Provider Name and Address Organization Details Last Updated DateTime 06/13/2024 162.56 cm 47777.05 g Veronica Agudelo [place] - [facility] 06/13/2024 10:21:57 Social History None recorded. Functional Status None recorded. Mental Status None recorded. Family History Nothing Reported. Medical History Condition Response Hypertension Y High Cholesterol Y Gynecological HistoryNo gynecological history recorded. Obstetrics History GPAL:G 0 P 0 0 0 0 Immunizations Vaccine Type Date Status Note Provider Nam e and Address Organization Details Recorded Time influenza, seasonal, intradermal, preservative free 3 completed Bridget finch [place] - [facility] 12/05/2023 09:45:47 Past Encounters Encounter ID Performer Location Encounter Start Date Encounter Closed Date Diagnosis/Indication Diagnosis SNOMED-CT Code Diagnosis ICD10 Code Diagnosis IMO Codes Diagnosis Note [id number] MARY LIVE PA-C [facility] [address] [address] 12/05/2023 09:29:55 12/05/2023 10:03:47 Impacted cerumen of bilateral ears [id number] H61.23 Ear examined with hand held otoscope. Cerumen removed bilaterall y with instrument s as needed. [id number] MARY LIVE PA-C [facility] [address] [address] 06/13/2024 10:17:53 06/13/2024 10:58:49 Impacted cerumen of bilateral ears [id number] 746358 H61.23 Ear examined with hand held otoscope. Cerumen removed bilaterall y with instrument s as needed. Sensorineu ral hearing loss of bilateral ears 289050117 H90.3 [id number] MARY LIVE PA-C [facility] [address] [address] 12/12/2024 09:09:55 12/12/2024 10:25:47 Impacted cerumen of bilateral ears 8998296757 880600 H61.23 Ear examined with hand held otoscope. Cerumen removed bilaterall y with instrument s as needed. Sensorineu ral hearing loss of bilateral ears 747679846 H90.3 [id number] STEVO JORGENSEN [facility] [address] [place] [address] 12/12/2024 10:04:54 12/18/2024 09:00:04 Sensorineural hearing loss of bilateral ears 724918022 H90.3 Audiologic al evaluation results: Right ear: [...] Member ID Diaz Member ID Guarantor Name 04/29/2025 2 [place] [id number] Marylou Daniels [id number] Marylou Daniels 04/29/2025 1 [place] [email or web address] Marylou Daniels [id number] Marylou Daniels 12/12/2024 1 [place] [employer]MENT [employer] Marylou Daniels [id number] Marylou Daniels 12/12/2024 1 [place] [id number] Marylou Daniels [id number] Marylou Daniels Notes Date Note Type Note Provider Name and Address Organization Details Recorded Time 12/05/2023 text/html ROS as noted in the [facility] 83-year-old female presents for cerumen removal. She has had no acute changes since her last visit. MARY LIVE PA-C [address], [address], [facility] - [facility] 12/05/2023 10:26:20 06/13/2024 text/html ROS as noted in the [facility] 84-year-old female presents for cerumen removal. History of asymmetric sensorineural hearing loss which we are observing with serial audiometric testing. Has noticed no change but does continue to have tinnitus. FRANKLIN HOPKINS MD 100 [facility],[address], [address], [facility] 06/13/2024 12:58:30 12/12/2024 text/html ROS as noted in the [facility] 84-year-old female presents for cerumen removal and updated hearing test. She has a history of sensorineural hearing loss. Feels that is getting worse. FRANKLIN HOPKINS MD [address] [place] [address],[address], [address], [facility] 12/12/2024 12:41:33 OBGyn Episode No OBEpisode recorded.
== END 2025-05-29 10:53 | disposition home or self-care (01) ==
LOC: HO.MAMMO 10:52
PROVIDERS: PCP Internal Medicine; Visit Provider Internal Medicine
DX: Z12.31 Encounter for screening mammogram for malignant neoplasm of breast (principal)
CPT/HCPCS: 77063; 77067

== ENCOUNTER → 2025-05-29 11:15 | Outpatient (BNV) | payer MEDICARE, SELFPAY | PROVIDERS: PCP Internal Medicine; Visit Provider Internal Medicine | DX: Z12.31 Encounter for screening mammogram for malignant neoplasm of breast (principal) | CPT/HCPCS: 77063; 77067 ==

== ENCOUNTER 2025-06-08 09:03 | Outpatient (REF) | payer MEDICARE, SELFPAY ==
--- NOTE | ~2025-06-08 | MM_ITS ---
EXAMINATION: DXA BONE DENSITY AXIAL HISTORY: M81.0 - Age-related osteoporosis without current pathological fracture TECHNIQUE: CytoPherx Dual energy absorptiometry (DEXA) of the lumbar spine, total left hip, and femoral neck was performed. COMPARISON: Comparison is made with the prior examination most recent dated March 2022. FINDINGS: The bone mineral density of the lumbar spine (L1-L3) is 0.877 g/cm2, corresponding to a T-score of -2.4, and a Z-score of -0.4. This is indicative of osteopenia. This represents a BMD change of 7.1% compared to the prior exam. The bone mineral density of the left total hip is 0.837 g/cm2, corresponding to a T-score of -1.4, and a Z-score of 1.0. This is indicative of osteopenia. This represents a BMD change of 1% compared to the prior exam. The bone mineral density of the left femoral neck is 0.719 g/cm2, corresponding to a T-score of -2.3, and a Z-score of 0.2. This is indicative of osteopenia. This represents a BMD change of -1.1% compared to the prior exam. FRACTURE RISK: The FRAX index suggests a ten year probability of major osteoporotic fracture of 17%, and of hip fracture 5.9%. MM/XR DEXA axial skeleton IMPRESSION: Based on bone mineral density, and according to World Health Organization (WHO) criteria, the diagnosis is consistent with osteopenia based on lowest T score of -2.4 in the spine. Treatment Recommendations: NOF guidelines recommend consideration for treatment in postmenopausal women and men age 50 and older presenting with the following: -A hip or vertebral (clinical or morphometric) fracture. -T-score less than or equal to -2.5 at the femoral neck or spine after appropriate evaluation to exclude secondary causes. -Low bone mass at the hip or spine and a 10-year fracture probability by FRAX of greater than or equal to 3% for hip fracture or greater than or equal to 20% for major osteoporotic fracture based on the [place] adapted WHO algorithm. Other Recommendations: All treatment decisions require clinical judgment and consideration of individual patient factors, including patient preferences, comorbidities, previous drug use, risk factors not captured in the FRAX model (e.g. frailty, falls, vitamin D deficiency, increased bone turnover, interval significant decline in bone density) and possible under or overestimation of fracture risk by FRAX. Additional medical evaluation for secondary cause of low bone mineral density may be appropriate. FUTURE SCAN RECOMMENDATION: People with diagnosed cases of osteoporosis or at high risk for fracture should have regular bone mineral density tests. For patients eligible for Medicare, routine testing is allowed once every 2 years. The testing frequency can be increased to one year for patients who have rapidly progressing disease, those who are receiving or discontinuing medical therapy to restore bone mass, or have additional risk factors. Statistically, 68% of repeat scans fall within 1 SD (+/- 0.010 g/cm2 for AP spine L1-L4) and 1 SD (+/- 0.012 g/cm2 for femur total) FRAX is a trademark of the [employer] [facility] Metabolic Bone Disease, a World Health Organization (WHO) Collaborating Center. Electronically signed by: Natalie Ricardo MD 06/09/2025 07:54 AM EST
[2025-06-08 09:58] LABS: Hematocrit 41.7 % (37.0-47.0); Hemoglobin 13.6 g/dl (12.0-16.0); Mean Corpuscular HGB Conc 32.6 g/dl (31.0-35.0); Mean Corpuscular Hemoglobin 31.3 pg (27.0-33.0); Mean Corpuscular Volume 95.9 fL (80.0-98.0); NRBC Abs Auto 0.000 X10*3/uL (0.0-0.012); NRBC Pct Auto 0.0 /100WBC (0.0-0.2); Platelet Count 159 X10*3/uL (160-400); Red Blood Count 4.35 X10*6/uL (4.20-5.50); White Blood Count 3.5 X10*3/uL (4.8-10.8)
[2025-06-08 13:14] LABS: Appearance Urine Clear; Glucose Urine UA 500 mg/dL (Negative); PH 5.0 (5.0-9.0); Specific Gravity - Urine 1.025 (1.005-1.025); UMIC TRIGGER UA YES
== END 2025-06-08 09:04 | disposition home or self-care (01) ==
LOC: HO.MAMMO 09:03
PROVIDERS: PCP Internal Medicine; Visit Provider Internal Medicine
DX: M81.0 Age-related osteoporosis without current pathological fracture (principal); E11.9 Type 2 diabetes mellitus without complications; R15.9 Full incontinence of feces
CPT/HCPCS: 36415; 77080; 81001; 81003; 85027

== ENCOUNTER → 2025-06-08 09:15 | Outpatient (BNV) | payer MEDICARE, SELFPAY | PROVIDERS: PCP Internal Medicine; Visit Provider Radiology Diagnostic Radiology | DX: E28.39 Other primary ovarian failure (principal) | CPT/HCPCS: 77080 ==

== ENCOUNTER 2025-07-17 10:25 | Outpatient (REF) | payer MEDICARE, SELFPAY ==
--- OUTSIDE RECORDS SUMMARY | 2025-07-13 13:20 | XMS_ITS | Encounter Summary ---
Author Organization [facility] Address [address] [facility] [address] [place] [address] Phone Care Team Providers Care Char Puller Name Role Phone Lamine Baugh MD Primary Care Provid er Reason for Visit * Reason Comments Type 1 Diabetes - Regular Visit Insulin pump/CGM Encounter Details Date Type Department Care Team (Latest Contact Info) Description 07/13/2025 1:20 PM EST Office Visit [facility] [address] [place] [address] Silvia Lancaster MD [address] [facility], 1st [place] [address] [email or web address] 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); Insulin pump in place; Hypercholesterolemia; Anxiety state Social History Tobacco Use Types Packs/Day Years Used Date Smoking Tobacco: Never Passive Smoke Exposure: Never Smokeless Tobacco: Never Alcohol Use Standard Drinks/Week Comments Yes 3 [...] PM EDT Sexual Orientation Not on file documented as of this encounter Last Filed Vital Signs Vital Sign Reading Time Taken Comments Blood Pressure 140/64 07/13/2025 1:20 PM EST Pulse 73 07/13/2025 1:20 PM EST Temperature 36.1 C (97 F) 07/13/2025 1:20 PM EST Respiratory Rate - - Oxygen Saturation 100% 07/13/2025 1:20 PM EST Inhaled Oxygen Concentration - - Weight 62.7 kg (138 lb 3.2 oz) 07/13/2025 1:20 P M EST Height - - Body Mass Index 23.71 04/16/2025 8:34 AM EDT documented in this encounter Patient Instructions * Patient Instructions* Silvia Lancaster MD - 07/13/2025 1:20 PM EST Images from the original note were not included. MEDICATIONS: We adjusted your 5am basal rate to 0.475u/hr We adjusted your evening correction factor to 85 Try to avoid giving a correction if you are less than 200 mg/dl before bed The [employer] team is solely working on new CGM orders, their phone number is BLOOD TESTS: The most recent A1c on file is 7% at end of March Please have your next A1c done on 07/17 and then you will be due for another A1c at appointment with Alix on 10/15 LIFESTYLE Diet: continue your efforts at healthy balanced eating Exercise: try to stay active as consistently as you can, 30 minutes of exercise on most days of theweek (averaging about 150 minutes of exercise per week) can be very helpful to overall wellbeing, blood sugar control and weight management FOLLOW UP: Please bring glucometer for download and/or blood sugar diary at next visit. Follow up in 3 months. Please call with any questions or concerns. documented in this encounter Progress Notes * Silvia Lancaster MD - 07/13/2025 1:20 PM EST Images from the original note were not included. Recent Labs: Lab Results Component Value Date CHOL 210 (*) 06/08/2022 HDL 85 (*) 06/08/2022 LDL 113 06/08/2022 No results found for: HGB , HCT , RDW TSH - External Date Value Ref Range Status 06/08/2022 2.5 0.5 - 5 uIU/L Final Lab Results Component Value Date HRXH8UTYZ 7.0 (*) 04/16/2025 LOGX9MSVA 7.5 (*) 10/13/2024 RTBK8RTOE 7.2 (*) 04/09/2024 GHBA1C 7.1 07/11/2024 GHBA1C 6.9 06/18/2023 GHBA1C 7.1 12/11/2022 Lab Results Component Value Date K 4.6 06/08/2022 GLU 159 (*) 06/08/2022 No results found for: TGVGMJWV77 , B12 Lab Results Component Value Date MALBCRE 5.2 10/05/2017 Last DM Eye Exam: Date: May DM Foot Exam: Date: spring Most Recent Immunizations Administered Date(s) Administered COVID-19 (Pre-05/14) Pfizer Vaccine, mRNA, PF 07/18/2021 INFLUENZA, SPLIT VIRUS, TRIVALENT W/ PRESERVATIVE IM 05/23/2013 Influenza High-Dose Quadrivalent Preservative Free IM 05/09/2023 Influenza High-Dose Trivalent Preservative Free IM 05/18/2021 Influenza Trivalent Adjuvanted Preservative free IM 04/21/2025 Influenza, Unspecified Formulation 03/23/2023 Pneumococcal conjugate PCV13 02/03/2016 Subjective: Marylou Daniels is a 85 y.o. female who presents for a follow up evaluation of Type 1 diabetes mellitus HPI/current issues: Marylou is looking into [employer] sensors, Instinct and Simplera Would like some guidance with a choice of sensor Marylou remains unsure how the integrated system will work for her and she would like to know if she can get out of automated mode if she wants to Marylou is very concerned about elevated readings and the variability in readings She sometimes gets impatient with her elevated readings and doses corrections again in short time if glucose is not coming down and then also run a higher temp basal rate We discussed that Marylou had her late evening ISF made more conservative at last visit with Esther to concerns about overnight lows so now her correction factor results in less insulin delivery for corrections and she is more apt to double dose and run higher temp rate Marylou rotates her infusion sets across abdomen She is concerned about her skin health Wears CGM on arms only Weight has been stable Appetite has been good Current blood sugar monitoring regimen: using Dexcom G6 and Medtronic 780G Glucose data reviewed: insulin pump and CGM downloads were reviewed, discussed with patient and scanned into the medical record; 2 week sensor glucose data is noted below, overall sensor glucose average is 177 mg/dl, 56% TIR (70-180), 34% 181-250, 10% >250, CV 31%, GMI 7.6% Any episodes of hypoglycemia? 0% <70, had some lows this morning due to running high temp basal overnight due to a high glucose Current diet: in general, a healthy diet tends to have a consistent diet, keeps detailed logs Current exercise: exercises classes live or zoom, 3 times weekly and also treadmill in between class sessions Prior visit with educator: met with Asia Jeff in April Known diabetic complications: autonomic neuropathy and peripheral neuropathy Current diabetic medications include: Current Outpatient Medications: ACCU-CHEK GUIDE TEST STRIPS Strp strips, Use to check BG up to 3 times/day in the event of CGM failure. Strips for meter that links with 780g pump., Disp: 100 strip, Rfl: 11, Last Dispense: Unknown (outside pharmacy) aspirin 81 MG EC tablet, 1 tablet, Disp: , Rfl: , Last Dispense: Unknown (patient-reported) cholecalciferol (VITAMIN D3) 25 MCG (1,000 unit) tablet, Take 1,000 Units by mouth daily., Disp: , Rfl: , Last Dispense: Unknown (patient-reported) DEXCOM G6 SENSOR Natalee, 1 each by Miscellaneous route Every 10 Days., Disp: 3 each, Rfl: 0, Last Dispense: Unknown (outside pharmacy) infusion set for insulin pump ISet, as directed, Disp: , Rfl: , Last Dispense: Unknown (patient-reported) insulin aspart U-100 (NOVOLOG U-100 INSULIN ASPART) 100 unit/mL injection vial, INJECT 25 TO 40 UNITS DAILY DX:E10.42, Disp: 40 mL, Rfl: 3, Last Dispense: Unknown (outside pharmacy) insulin pump syringe 3 mL Misc, as directed, Disp: , Rfl: , Last Dispense: Unknown (patient-reported) Medication-Free Text, 1,000 mg 2 (two) times a day. Pro DHA Eye , Disp: , Rfl: , Last Dispense: Unknown (patient-reported) ONETOUCH DELICA LANCETS 30 gauge Misc, 1 each by Miscellaneous route 3 (three) times a day before meals. DX:E10.42, Disp: 300 each, Rfl: 3, Last Dispense: Unknown (outside pharmacy) rosuvastatin (CRESTOR) 40 MG tablet, Take 40 mg by mouth daily. Patient reports ta, Disp: , Rfl: , Last Dispense: Unknown (patient-reported) vitamin A,C,C-bwws-oqinaj (OCUVITE PRESERVE) 2,148 mcg-113 mg-45 mg-17.4mg Tab, Take 2 capsules by mouth daily., Disp: , Rfl: , Last Dispense: Unknown (patient-reported) Weight trend: Wt Readings from Last 3 Encounters: 07/13/25 62.7 kg (138 lb 3.2 oz) 04/16/25 62.6 kg (138 lb) 01/16/25 62.5 kg (137 lb 12.8 oz) Review of Systems Pertinent items are noted in HPI. Objective: BP (!) 140/64 (BP Location: Right arm, Patient Position: Sitting, Cuff Size: Medium) Pulse 73 Temp 36.1 ??C (97 ??F) (Skin) Wt 62.7 kg (138 lb 3.2 oz) SpO2 100% BMI 23.71 kg/m?? on brief examination Marylou is well appearing and in no distress, she is alert and oriented and otherwise cognitively intact, her respirations are comfortable and unlabored, she is without tremor and gross motor function is intact and symmetric, gait is normal; skin at abdomen is intact and benign appearing, no scarring, no localized areas of lipohypertrophy Assessment: Type 1 diabetes mellitus, under good control. Most recent A1c on file is 7% from March, Marylou will be due for a repeat A1c next week, CGM data continues to indicate fair variability though this is significant from day to day, most significant elevations occur in evening. Problem List Items Addressed This Visit Endocrine Type 1 diabetes mellitus with polyneuropathy - Primary Overall Marylou continues with very good control, TIR per CGM is at goal and this has been stable since last visit, Marylou continues to be frustrated by variability in her glucose readings and much of this is expected, we discussed how this may be affected if she were to use an integrated insulin pump/CGM system as this would automate delivery, this could benefit Marylou in many ways and likely resultin much less variability We discussed the new Instinct and Simplera CGM systems available from [employer] We adjusted some pump settings as noted, Marylou is strongly advised to correct elevated readings using the new ISF setting and not to recorrect/stack insulin and also to not set high temp basal rate after correction of an elevated reading Marylou continues using CGM and she continues to self monitor fingerstick blood sugars, she continuesto monitor CGM patterns closely Marylou is encouraged to continue her efforts at healthy lifestyle Marylou will return to follow up with Alix Perez in 3 months and with me in 6 months, she is encouraged to contact me with any questions or concerns Relevant Orders Hemoglobin A1c (Completed) Insulin pump in place We adjusted insulin pump settings, particularly the ISF which we made more aggressive so that Marylouwimartín be less apt to repeat correction, we discussed the importance monitoring blood sugars after correction and not repeating corrections until at least 2 hours after correction, furthermore she is strongly advised not to also run high temp basal rate, the combination of these will increase hypoglycemia risk, she states that she understands We again reviewed the benefits of CGM integrated insulin pump with automated function, [employer] guardian sensor is covered by Medicare and would be available for Marylou, she is also considering the new Instinct and Simplera sensors; she continues to be frustrated by variability in her glucose patterns and we reviewed that these would likely be less significant if she used the integrated system Having CGM is helpful for Marylou to make day to day adjustments in her lifestyle as well as identifypatterns of hypo/hyperglycemia where insulin pump setting adjustments can be made We discussed importance of rotation of infusion sets She is reassured that her control remains very good overall and to continue her excellent habits Hypercholesterolemia Continues on rosuvastatin at high intensity LDL goal is <70 ideally We do not have most recent lab data available for review Behavioral and Developmental Anxiety state Marylou reports anxiety that is fairly consistent We discussed consideration for psychotherapy as well as medication therapy and the likely benefits of both in combination Advised to discuss with PCP 44 minutes were spent with the patient, this included face to face time as well as non face to facetime in reviewing medical records, pertinent laboratory results and consultation reports. Time spent with patient did not include interpretation of CGM reports. documented in this encounter Miscellaneous Notes * Assessment & Plan Note - Silvia Lancaster MD - 07/13/2025 6:03 PM ESTAssociated Problem(s): Type 1 diabetes mellitus with polyneuropathy Overall Marylou continues with very good control, TIR per CGM is at goal and this has been stable since last visit, Marylou continues to be frustrated by variability in her glucose readings and much of this is expected, we discussed how this may be affected if she were to use an integrated insulin pump/CGM system as this would automate delivery, this could benefit Marylou in many ways and likely resultin much less variability We discussed the new Instinct and Simplera CGM systems available from [employer] We adjusted some pump settings as noted, Marylou is strongly advised to correct elevated readings using the new ISF setting and not to recorrect/stack insulin and also to not set high temp basal rate after correction of an elevated reading Marylou continues using CGM and she continues to self monitor fingerstick blood sugars, she continuesto monitor CGM patterns closely Marylou is encouraged to continue her efforts at healthy lifestyle Marylou will return to follow up with Alix Perez in 3 months and with me in 6 months, she is encouraged to contact me with any questions or concerns * Assessment & Plan Note - Silvia Lancaster MD - 07/13/2025 3:11 PM ESTAssociated Problem(s): Insulin pump in place Images from the original note were not included. We adjusted insulin pump settings, particularly the ISF which we made more aggressive so that Marylouwill be less apt to repeat correction, we discussed the importance monitoring blood sugars after correction and not repeating corrections until at least 2 hours after correction, furthermore she is strongly advised not to also run high temp basal rate, the combination of these will increase hypoglycemia risk, she states that she understands We again reviewed the benefits of CGM integrated insulin pump with automated function, [employer] guardian sensor is covered by Medicare and would be available for Marylou, she is also considering the new Instinct and Simplera sensors; she continues to be frustrated by variability in her glucose patterns and we reviewed that these would likely be less significant if she used the integrated system Having CGM is helpful for Marylou to make day to day adjustments in her lifestyle as well as identifypatterns of hypo/hyperglycemia where insulin pump setting adjustments can be made We discussed importance of rotation of infusion sets She is reassured that her control remains very good overall and to continue her excellent habits * Assessment & Plan Note - Silvia Lancaster MD - 07/13/2025 2:32 PM ESTAssociated Problem(s): Hypercholesterolemia Continues on rosuvastatin at high intensity LDL goal is <70 ideally We do not have most recent lab data available for review * Assessment & Plan Note - Silvia Lancaster MD - 07/13/2025 2:31 PM ESTAssociated Problem(s): Anxiety state Marylou reports anxiety that is fairly consistent We discussed consideration for psychotherapy as well as medication therapy and the likely benefits of both in combination Advised to discuss with PCP documented in this encounter Plan of Treatment Upcoming Encounters Date Type Department Care Team (Late st Contact Info) Description 10/15/2025 9:20 AM EDT Office Visit [facility] [address] [place] [address] Alix Perez CNP 22 [facility], [address] [place] [id number] 01/29/2026 9:40 AM EDT Office Visit [facility] [address] [place] [address] Silvia Lancaster MD [address] [place] [address], [address] [place] [address] [email or web address] documented as of this encounter Visit Diagnoses Diagnosis Type 1 diabetes mellitus with polyneuropathy- Primary Type I (juvenile type) diabetes mellitus with neurological manifestations, not stated as uncontrolled Insulin pump in place Insulin pump status Hypercholesterolemia Pure hypercholesterolemia Anxiety state Anxiety state, unspecified documented in this encounter Care Teams Char Puller Relationship Specialty Start Date End Date Lamine Baugh MD [address] [place] [id number] PCP - General Internal Medicine 10/13/24 documented as of this encounter Additional Source Comments The information contained in this document represents components of the legal health record. It is not the complete legal health record.[facility]
--- OUTSIDE RECORDS SUMMARY | 2025-07-17 10:31 | XMS_ITS | Data Portability ---
Author Organization [place] [facility], Allergy Address [address] [address] Care Team Providers Care Novelty Printing Machine Operator Name Role Phone ZOYA HATFIELD Primary Care [...] Recorded Time Impacted cerumen of bilateral ears [id number] Active 2022 Impacted cerumen, bilateral ; Note: Date Diagnosed : 11/29/2022 12:29 PM (H61.23) Not Available [facility] 4 03:01:56 Sensorine ural hearing loss of bilateral ears [id number] Active 2022 Sensorine ural hearing loss, bilateral ; Note: Date Diagnosed : 3 9:55 AM (H90.3) Not Available [facility] 4 03:01:54 Problem Notes None recorded. Procedures Surgical History Date Name Laterality Status Provider Name and Address Organization Details Recorded Time 12/13/19 25 Comp Audio with Tymps - 63739 & 66527 completed STEVO JORGENSEN 100 [facility],[address], [address], [facility] 12/12/2024 10:07:00 12/13/19 25 Cerumen removal without microscope bilat completed MARY LIVE PA-C 100 [facility],[place] [address], [place], [address], [facility] 12/12/2024 10:24:28 06/13/20 24 Cerumen removal without microscope bilat completed MARY LIVE PA-C 100 [facility] [address], [place], [address], [place] - [facility] 06/13/2024 11:46:40 12/05/19 24 Cerumen removal without microscope bilat completed MARY LIVE PA-C 100 [facility] 100, [place], [address], [place] - [facility] 12/05/2023 10:24:35 tonsillectomy and adenoidectomy completed Veronica Agudelo [place] - [facility] 06/13/2024 10:22:57 arthroscopy of knee completed Veronica Agudelo [facility] 06/13/2024 10:23:15 Imaging Results None recorded. [...] 0.5 mg tablet active Medicati on ID: [id number] B rand Name: lorazepa m Send Method: E-Prescr ibed Sub s Allowed: subs OK Medic ationGen ericName : lorazepa m Not Available Not Available Not Available Aspirin Childrens 81 mg chewable tablet active Medicati on ID: [id number] B rand Name: Aspirin Children s Send Method: E-Prescr ibed Sub s Allowed: subs OK Medic ationGen ericName : Aspirin Children s Not Available Not Available Not Available Novolog U-100 Insulin aspart 100 unit/mL subcutane ous solution INJECT 25 TO 40 UNITS DAILY DX:E10.4 2 active Not Available Not Available No t Available rosuvasta tin 20 mg tablet 06/13 completed Medicati on ID: [id number] B rand Name: rosuvast atin Sen d [...] Updated DateTime 12/05/2023 162.56 cm 21.5 kg/m2 99905.05 g Bridget Garcia [place] - [facility] 12/05/2023 09:45:00 Date Recorded Body height Body mass index (BMI) Body weight Provider Name and Address Organization Details Last Updated DateTime 12/12/2024 162.56 cm 22.3 kg/m2 87513.01 g Heide Landry [place] - [facility] 12/12/2024 09:15:59 Date Recorded Body height Body weight Provider Name and Address Organization Details Last Updated DateTime 06/13/2024 162.56 cm 58856.05 g Veronica Agudelo [place] - [facility] 06/13/2024 10:21:57 Social History None recorded. [...] finch [place] - [facility] 12/05/2023 09:45:47 Past Encounters Encounter ID Performer Location Encounter Start Date Encounter Closed Date Diagnosis/Indication Diagnosis SNOMED-CT Code Diagnosis ICD10 Code Diagnosis IMO Codes Diagnosis Note [id number] MARY LIVE PA-C [facility] [address] [address] 12/05/2023 09:29:55 12/05/2023 10:03:47 Impacted cerumen of bilateral ears [id number] H61.23 Ear examined with hand held otoscope. Cerumen removed bilaterall y with instrument s as needed. [id number] MARY LIVE PA-C [facility] [address] [address] 06/13/2024 10:17:53 06/13/2024 10:58:49 Impacted cerumen of bilateral ears [id number] 224160 H61.23 Ear examined with hand held otoscope. Cerumen removed bilaterall y with instrument s as needed. Sensorineu ral hearing loss of bilateral ears [id number] H90.3 [id number] MARY LIVE PA-C [facility] [address] [address] 12/12/2024 09:09:55 12/12/2024 10:25:47 Impacted cerumen of bilateral ears [id number] 114123 H61.23 Ear examined with hand held otoscope. Cerumen removed bilaterall y with instrument s as needed. Sensorineu ral hearing loss of bilateral ears [id number] H90.3 [id number] STEVO JORGENSEN [facility] [address] [place] [address] 12/12/2024 10:04:54 12/18/2024 09:00:04 Sensorineural hearing loss of bilateral ears 055450997 H90.3 Audiologic al evaluation results: Right ear: [...] Name 04/29/2025 2 [place] [id number] Marylou Daniels [id number] Marylou Daniels 04/29/2025 1 [place] [employer] [place] Marylou Daniels [id number] Marylou Daniels 12/12/2024 1 [place] Marylou Daniels [id number] Marylou Daniels 12/12/2024 1 [place] [id number] Marylou Daniels [id number] Marylou Daniels Notes Date Note Type Note Provider Name and Address Organization Details Recorded Time 12/05/2023 text/html ROS as noted in the [facility] 83-year-old female presents for cerumen removal. She has had no acute changes since her last visit. MARY LIVE PA-C [address], [address], [facility] - [facility] 12/05/2023 10:26:20 06/13/2024 text/html ROS as noted in the [facility] 84-year-old female presents for cerumen removal. History of asymmetric sensorineural hearing loss which we are observing with serial audiometric testing. Has noticed no change but does continue to have tinnitus. FRANKLIN HOPKINS MD 100 [facility],[address], [address], [facility] 06/13/2024 12:58:30 12/12/2024 text/html ROS as noted in the [facility] 84-year-old female presents for cerumen removal and updated hearing test. She has a history of sensorineural hearing loss. Feels that is getting worse. FRANKLIN HOPKINS MD [address] [place] [address],[address], [address], [facility] 12/12/2024 12:41:33 OBGyn Episode No OBEpisode recorded.
--- OUTSIDE RECORDS SUMMARY | 2025-07-17 10:31 | XMS_ITS | Clinical Summary ---
Author Organization [facility] Address [address] [employer] [facility] [address] [place] [address] Phone Care Team Providers Care Sous Chef Kitchen Manager Name Role Phone Lamine Baugh MD Primary [...] 300 each 3 12/03/19 22 Active vitamin A,C,I-zdgt-nyvpik (OCUVITE PRESERVE) 2,148 mcg-113 mg-45 mg-17.4mg Tab [...] Active Problems Problem Noted Date Diagnosed Date Anxiety state 07/13/2025 Assessment & Plan (07/13/2025 2:31 PM EST): Marylou reports anxiety that is fairly consistent We discussed consideration for psychotherapy as well as medication therapy and the likely benefits of both in combination Advised to discuss with PCP Hypercholesterolemia 12/01/2024 Assessment & Plan (07/13/2025 2:32 PM EST): Continues on rosuvastatin at high intensity LDL goal is <70 ideally We do not have most recent lab data available for review Dry eyes, bilateral 04/22/2018 Assessment & Plan (04/22/2018 8:46 PM EDT): Struggling with dry eyes and dry mouth for 2 years, seeing performance management consultant and therapy has not been helpful Sicca syndrome, ?sjogrens, possibly increased likelihood due to her personal autoimmune disease history Type 1 diabetes mellitus with polyneuropathy Overview (10/18/2017): DIABETES HISTORY Diagnosis - type 1 diabetes, dx in 1970 Treatment history - insulin pump 1999 Assessment & Plan (07/13/2025 6:03 PM EST): Overall Marylou continues with very good control, [...] likely result in much less variability We discussed the new Instinct and Simplera CGM systems available from [employer] We adjusted some pump settings as noted, Marylou is strongly advised to correct elevated readings using the new ISF setting and not to recorrect/stack insulin and also to not set high temp basal rate after correction of an elevated reading Marylou continues using CGM and she continues to self monitor fingerstick blood sugars, she continues to monitor CGM patterns closely Marylou is encouraged to continue her efforts at healthy lifestyle Marylou will return to follow up with Alix Perez in 3 months and with me in 6 months, she is encouraged to contact me with any questions or concerns Assessment & Plan (04/16/2025 10:15 AM EDT): [...] to discuss this at next visit with life educator or with Alix Perez if time [...] integrated CGMs, Marylou prefers to remain with [employer], and their current CGM is rather difficult to learn, but [employer] did announce their Simplera CGM will be soon available, so this may be a better option for Marylou to remain on the [employer] system and eventually have an integrated CGM [...] in May, scheduling sooner visit for Dexcom senior technical trainer when receives system, she is encouraged [...] control but we identified some patterns of cfo-th-jtlom blood sugars, particularly high blood sugars after [...] to Medtronic 670G 05/19/19. Assessment & Plan (07/13/2025 3:11 PM EST): Images from the original note were not included. We adjusted insulin pump settings, particularly the ISF which we made more aggressive so that Marylou will be less apt to repeat correction, we [...] continue her excellent habits Assessment & Plan (04/16/2025 10:14 AM EDT): [...] change to Guardian CGM, she will contact [employer] Having CGM is helpful for Marylou to [...] instead of using the guardian sensor, hopefully [employer]'s new sensor will be available soon which [...] insulin pump settings today Advised to contact [employer] if her insulin pump continues to malfunction, [...] encouraged to consider these and to contact [employer] or her insurer to inquire about coverage [...] Encounters Date Type Department Care Team Description 07/13/2025 1:20 PM EST Office Visit [facility] Diabetes [address] [place] [address] Silvia Lancaster MD 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); Insulin pump in place; Hypercholesterolemia; Anxiety state 07/08/2025 Telephone [facility] [address] [place] [address] Silvia Lancaster MD Forms & Paperwork 07/02/2025 Telephone [facility] Endocrinology Clinic [address] [place] [address] [place] [address] Janell Zelaya MA Medication Question 04/23/2025 1:00 PM EDT Nutrition [facility] Diabetes [facility] [address] [facility] [place] [id number] Asia Jeff LDN 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); Insulin pump in place from Last 3 Months Immunizations Immunization Administration Dates Next Due COVID-19 (Pre-05/14) Pfizer Vaccine, mRNA, PF 09/24/2020,09/03/2020 INFLUENZA, SPLIT VIRUS, TRIV ALENT W/ PRESERVATIVE IM 05/23/2013 Influenza High-Dose Quadriva lent Preservative Free IM 05/09/2023,04/05/2022 Influenza High-Dose Trivalen t Preservative Free IM 05/18/2021,04/12/2020,07/02/2019,2016 Influenza Trivalent Adjuvant ed Preservative free IM 04/21/2025,04/25/2024 Influenza, Unspecified Formulation 03/23/2023 Pneumococcal conjugate PCV13 02/03/2016 Family History Medical [...] F) 07/13/2025 1:20 PM EST Respiratory Rate 12 07/26/2021 1:54 PM EST Oxygen Saturation 100% 07/13/2025 1:20 PM EST Inhaled Oxygen Concentration - - Weight 62.7 kg (138 lb 3.2 oz) 07/13/2025 1:20 P M EST Height 162.6 cm (5' 4.02 ) 04/16/2025 8:34 AM ED T Body Mass Index 23.71 04/16/2025 8:34 AM EDT Plan of Treatment Upcoming Encounters Date Type Department Care Team (Late st Contact Info) Description 10/15/2025 9:20 AM EDT Office Visit [facility] Diabetes [address] [place] [address] Alix Perez CNP [address] [place] [address], [address] [place] [address] 01/29/2026 9:40 AM EDT Office Visit [facility] Diabetes [address] [place] [address] Silvia Lancaster MD [address] [place] [address] Health Maintenance Due Date Last Done Comments Adult Td,Tdap Booster 1940 DEPRESSION SCREENING 1952 ZOSTER VACCINES (1 of 2) 1990 OSTEOPOROSIS SCREENING INITIAL (ONE-TIME) 2005 RSV VACCINE (1 - 1-dose 75+ series) 2015 PNEUMOCOCCAL VACCINES (50+ years) (2 of 2 - PPSV23, PCV20, or PCV21) 03/30/2016 02/03/2016 DIABETIC EYE EXAM 07/18/2017 URINE MICROALBUMIN/CREATININE RATIO 06/08/2023 06/08/2022, 10/05/2017 COVID-19 VACCINE ( season) 2025 07/18/2021, 09/24/2020, 09/03/2020 HEMOGLOBIN A1C 10/14/2025 04/16/2025, 09/21, 07/11/2024, Additional history exists BLOOD PRESSURE 01/11/2026 07/13/2025 INFLUENZA VACCINE Completed 04/21/2025, , 05/09/2023, Additional history exists HEPATITIS A VACCINES Aged [...] Hemoglobin A1c 7.0(A) 4.2 - 5.6 % [facility] [employer] [facility] Other 04/16/2025 8:56 AM EDT Alix Perez SHOT BLASTER LAB POCT ENTER/EDIT ORDERABLE S Final Result [facility] [address] [place] [address], [facility] * Outside Urine MALB/Cre Ratio (10/05/2017) Microalbumin/Cr eatinine Ratio, urine - External 5.2 us Historical Provider LAB BLOOD ORDERABLES Grazyna l Result from Last 3 Months or Most Recently Relevant to Health Maintenance Insurance [employer] MEDEX SUPPLEMENT MEDICARE PART A & B [place] MEDEX SUPPLEMENT MEDICARE PART A & B [employer] MEDEX SUPPLEMENT [employer] MEDEX SUPPLEMENT [employer] MEDEX SUPPLEMENT MEDICARE PART A & B [employer] MEDEX SUPPLEMENT [employer] MEDEX SUPPLEMENT MEDICARE PART A & B [employer] MEDEX SUPPLEMENT MEDICARE PART A & B [employer] MEDEX SUPPLEMENT MEDICARE PART A & B Care Teams Sous Chef Kitchen Manager Relationship Specialty Start Date End Date Lamine Baugh MD [address] [place] [phone] PCP - General Internal Medicine 10/13/24 Additional Source Comments The information contained in this document represents components of the legal health record. It is not the complete legal health record.[facility]
== END 2025-07-17 10:26 | disposition home or self-care (01) ==
LOC: HO.LAB 10:25
PROVIDERS: PCP Internal Medicine; Visit Provider Pediatrics
DX: E10.42 Type 1 diabetes mellitus with diabetic polyneuropathy (principal)
CPT/HCPCS: 36415; 83036

== ENCOUNTER 2025-07-20 14:21 | Outpatient (AMB) | payer MEDICARE, SELFPAY ==
[2025-07-20 14:26] VITALS: BP 146/65; PULSE 80; RESP 14; TEMP 36.6; O2SAT 97; BMI 25.8
--- NOTE | 2025-07-20 14:26 | A.OFFPC_ITS ---
Vital Signs 07/20/25 14:26 Height 5 ft 1.5 in Weight 139 lb BMI 25.8 BP 146/65 H Blood Pressure Location Lt brachial Position Sitting Respiration 14 Pulse 80 Pulse Source Pulse Oximeter Temp 97.9 F Temp Source Temporal Artery Scan Pulse Oximetry (%) 97 Oxygen Delivery Method Room Air Intake Visit Reasons: Dry cough Sack Repairer Required: No Accompanied by: Self / Same As Patient Allergies No Known Allergies Allergy (Verified 07/20/25 15:03) Medication List - Last Reconciled 07/20/25 by Lamine Baugh MD aspirin (Adult Low Dose Aspirin) 81 mg PO DAILY azithromycin take 500 mg today (day 1), then 250 mg for 4 days (days 2-5) PO blood sugar diagnostic As directed buspirone 5 mg PO DAILY cholecalciferol (vitamin D3) 25 mcg PO DAILY insulin aspart U-100 25 - 40 units subcut DAILY lancets As directed psyllium husk (Metamucil) 1 tbsp PO BID rosuvastatin 40 mg PO DAILY vitamins A,C,L-zlfm-fbdkpg 4,296 mcg-226 mg-90 mg (PreserVision AREDS) 1 cap PO BID Tobacco use date assessed: 03/31/25 Dental Screening Dental Screen Date: 02/25/25 HPI HPI Comments History of Present Illness Details History of Present Illness - The patient is an 85 year old female p resenting with a cough. - Her cough has been present for one to two weeks and is characterized by a constant need to clear her throat, which can lead to exhausting coughing spells. - She notes that eating can trigger the cough. - She reports having a similar issue in the past and believes she was prescribed azithromycin but is unsure if it was effective. - The patient also reports chronic anxie ty, stating she is always anxious and that everything seems to bother her. - She has previously tried lorazepam wit hout effect. - Her sister takes Buspar for anxiety. - She was previously advised by her diab etes doctor that seeing a therapist would be preferable to medication for her anxiety. - The patient has no known drug allergie s. Social History - The patient lives by herself in an [facility]. - She denies recent travel and reports n o sick contacts at home. - She drives and denies feeling fatigued . 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 Diabetes mellitus Osteoporosis Surgical History History of colonoscopy (~06/03/10) History of surgery History of arthroplasty of left knee History of appendectomy History of wisdom tooth extraction History of tonsillectomy and adenoidectomy Family History Father Cancer Mother Dementia Heart problem Maternal Aunt Breast cancer Social History Household Members: None Housing: House Alcohol intake: current Alcohol intake frequency: holidays/special occasions only Alcohol type: wine Patient Tobacco Use Status: Never used Tobacco service: No Current occupational status: retired Cognitive needs: No Hearing needs: No Vision needs: No Questionnaire PHQ-9 Over the last 2 weeks, how often have you been bothered by any of the following problems? 1. Little interest or pleasure in doing things: not at all 2. Feeling down, depressed, or hopeless: not at all 3. Trouble falling or staying asleep, or sleeping too much: not at all 4. Feeling tired or having little energy: not at all 5. Poor appetite or overeating: not at all 6. Feeling bad about yourself - or that you are a failure or have let yourself or your family down: not at all 7. Trouble concentrating on things, such as reading the newspaper or watching te levision: not at all 8. Moving or speaking so slowly that other people could have noticed. Or the opposite - being so fidgety or restless that you have been moving around a lot more than usual: not at all 9. Thoughts that you would be better off or of hurting yourself in some way: not at all Total score: 0 Depression Screening Interpretation: Negative Depression Screening Done: Yes 83766 - PHQ-9 Billing: Yes Source: Developed by Drs. Elie Lucas, Greta Carlin, Sumit Yang and colleagues, with an educational zahraa from [employer]. Thrive Questionnaire Date Thrive assessed: 02/25/25 I am a: Patient What is your living situation today?: I have a steady place to live Within the past 12 months, did the food you bought not last and you didn't have the money to get more?: Never true Within the past 12 months, did you worry whether your food would run out before you got money to buy more?: Never true Do you have trouble paying for medicines?: No Do you have trouble getting transportation to medical appointments?: No Do you have trouble paying your heating and electricity bill?: No Do you have trouble taking care of your child, family member or friend?: No Do you have trouble with day-to-day activities such as bathing, preparing meals, shopping, managing finances, etc.?: No Are you currently unemployed and looking for a job?: No Are you interested in more education?: No Please select the resources that you would like help with: None THRIVE Score: 0 AUDIT C Alcohol Use Questionnaire (AUDIT-C) 1. How often do you have a drink containing alcohol?: Never 3. How often do you have six or more drinks on one occasion?: Never Total Score: 0 Score Reviewed/Action Taken: No WIN-7 AMB Questionnaire WIN-7 Date WIN - 7 assessed: 02/25/25 Feeling nervous, anxious, or on edge: 0 = Not at all Not being able to stop or control worryin = Not at all Worrying too much about different things: 0 = Not at all Trouble relaxin = Not at all Being so restless that it is hard to sit still: 0 = Not at all Becoming easily annoyed or irritable: 0 = Not at all Feeling afraid as if something awful might happen: 0 = Not at all Total WIN-7 score (0-4 normal; 5-9 mild; 10-14 moderate; 15-21 severe): 0 Source: Developed by Drs. Elie Lucas, Greta Carlin, Sumit Yang and colleagues, with an educational zahraa from [employer]. WIN-7 Assessment Billing WIN-7 Assessment Tool: WIN-7 Assessment 62235 Review of Systems Narrative Review of Systems - Respiratory: Reports a persistent cough and constant need to clear her throat for the past 1-2 weeks, which is triggered by eating. - ENT: Denies ear pain or ringing. - Constitutional: Denies fatigue. - Psychiatric: Reports feeling anxious about everything. - Allergic: Denies any known medication allergies. Physical exam (Primary Care) Vital Signs: Last Vital Signs Temp 97.9 F 07/20/25 14:26 Pulse 80 07/20/25 14:26 Resp 14 07/20/25 14:26 BP 146/65 H 07/20/25 14:26 Pulse Ox 97 07/20/25 14:26 Oxygen Delivery Method Room Air 07/20/25 14:26 BMI result Body Mass Index 25.8 Tobacco/Smoking Status: Tobacco use Status Tobacco use date assessed 03/31/25 07/20/25 14:28 Patient Tobacco Use Status Never used Tobacco 07/20/25 14:28 PHQ-9: PHQ-9 Score PHQ-9: Total score 0 07/20/25 14:28 Depression Screening Interpretation: Negative Thrive Assessment: Date of Thrive Assessment Date Thrive assessed 02/25/25 07/20/25 14:28 Narrative Physical Exam General: Cooperative and healthy appearing Nutritional Appearance: Well nourished Orientation/consciousness: Patient oriented x3 Limitations: No limitations Head: Normal to inspection General: Appearance normal, both eyes and all related structures Neck: Normal visual inspection Chest: Normal palpation of entire chest wall Respiratory: Normal respiratory effort Neurology: Patient oriented x3 Coding Level of Care Code Est Pt Level 4 (92742) Add On Problem Visit Only Diagnoses Generalized anxiety disorder F41.1 Additional Codes WIN-7 Assessment Billing - WIN-7 Assessment Tool: WIN-7 Assessment 00965 ([id number]) PHQ-9 - 85302 - PHQ-9 Billing: Yes ([id number]) Assessment & Plan Assessment & Plan (1) Generalized anxiety disorder: Code(s): F41.1 - Generalized anxiety disorder Category: Medical Plan Plan - A prescription for azithromycin will be sent for the cough. - Recommended ldsu-sbb-yiispon Robitussin DM for cough symptoms. - For anxiety, a prescription for Buspar will be sent. - The patient was instructed to finish the course of azithromycin, wait a few days, and then begin taking the Buspar. Discussion Notes I have prescribed azithromycin for the patient's cough and recommended she also take Robitussin DM, which is available over the counter. We also discussed her anxiety, and after she expressed interest in trying a medication similar to what her sister takes, I agreed to prescribe Buspar. I instructed her to complete the full course of antibiotics, wait a few days, and then initiate the Buspar. I confirmed with her that two prescriptions, one for the antibiotic and one for anxiety, would be sent to her pharmacy. Patient Instructions - I am sending a prescription for an antibiotic called Azithromycin for your cough. - Please make sure you finish the entire course of the antibiotic. - You can take vlch-jel-wsxatub Robitussin DM to help with your cough symptoms. - I am also sending a prescription for a medicine called Buspar to help with anxiety. - Please wait until after you finish the antibiotic before you start taking the Buspar. Medications: New azithromycin take 500 mg today (day 1), then 250 mg for 4 days (days 2-5) PO 6 tabs 0RF buspirone 5 mg PO DAILY 30 tabs 1RF
--- OUTSIDE RECORDS SUMMARY | 2025-07-20 16:43 | XMS_ITS | Clinical Summary ---
Author Organization [facility] Address [address] [employer] [facility] [address] [place] [address] Phone Care Team Providers Care Online Marketing Manager Name Role Phone Lamine Baugh MD [...] 300 each 3 12/03/19 22 Active vitamin A,C,G-derj-ddkudf (OCUVITE PRESERVE) 2,148 mcg-113 mg-45 mg-17.4mg Tab [...] and dry mouth for 2 years, seeing epic trainer and therapy has not been helpful Sicca [...] Instinct and Simplera CGM systems available from [employer] We adjusted some pump settings as noted, [...] to discuss this at next visit with religious educator or with Alix Perez if time [...] integrated CGMs, Marylou prefers to remain with [employer], and their current CGM is rather difficult to learn, but [employer] did announce their Simplera CGM will be soon available, so this may be a better option for Marylou to remain on the [employer] system and eventually have an integrated CGM [...] of Diabetes: Diabetes mellitus Type 1 Assessment/HPI: Mayrlou is here today for personal CGM training [...] in May, scheduling sooner visit for Dexcom systems trainer when receives system, she is encouraged [...] the burden of frequent fingerstick glucose monitoring Mraylou is encouraged to continue her efforts at [...] control but we identified some patterns of jst-lj-wlvwg blood sugars, particularly high blood sugars after [...] instead of using the guardian sensor, hopefully [employer]'s new sensor will be available soon which [...] insulin pump settings today Advised to contact [employer] if her insulin pump continues to malfunction, [...] encouraged to consider these and to contact [employer] or her insurer to inquire about coverage [...] Description 07/13/2025 1:20 PM EST Office Visit [facility] [address] [place] [address] Silvia Lancaster MD 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); Insulin pump in place; Hypercholesterolemia; Anxiety state 07/08/2025 Telephone [facility] [address] [place] [address] Silvia Lancaster MD Forms & Paperwork 07/02/2025 Telephone [facility] Endocrinology [facility] [address] [place] [address] [place] [address] Janell Zelaya MA Medication Question 04/23/2025 1:00 PM EDT Nutrition [facility] [address] [facility] [place] [phone] Asia Jeff LDN Type 1 diabetes mellitus [...] Description 10/15/2025 9:20 AM EDT Office Visit [facility] [address] [place] [address] Alix Perez CNP [address] [place] [address], [address] [place] [phone] [email or web address] 01/29/2026 9:40 AM EDT Office Visit [facility] [address] [place] [address] Silvia Lancaster MD [address] [place] [address] Health Maintenance Due Date Last Done Comments [...] Hemoglobin A1c 7.0(A) 4.2 - 5.6 % [facility] [employer] [facility] Other 04/16/2025 8:56 AM EDT Alix Perez CHILI PEPPER GRINDER LAB POCT ENTER/EDIT ORDERABLE S Final Result [facility] [address] [place] [address], [facility] * Outside Urine MALB/Cre Ratio (10/05/2017) Microalbumin/Cr eatinine Ratio, urine - External 5.2 us Historical Provider LAB BLOOD ORDERABLES Grazyna l Result from Last 3 Months or Most Recently Relevant to Health Maintenance Insurance [employer] MEDEX SUPPLEMENT MEDICARE PART A & B [facility] MEDEX SUPPLEMENT MEDICARE PART A & B [employer] MEDEX SUPPLEMENT [employer] MEDEX SUPPLEMENT [employer] MEDEX SUPPLEMENT MEDICARE PART A & B [employer] MEDEX SUPPLEMENT [employer] MEDEX SUPPLEMENT MEDICARE PART A & B [employer] MEDEX SUPPLEMENT MEDICARE PART A & B [employer] MEDEX SUPPLEMENT MEDICARE PART A & B Care Teams Online Marketing Manager Relationship Specialty Start Date End Date Lamine Baugh MD [address] [place] [id number] PCP - General Internal Medicine 10/13/24 Additional Source Comments The information contained in this document represents components of the legal health record. It is not the complete legal health record.[facility]
--- OUTSIDE RECORDS SUMMARY | 2025-07-20 16:43 | XMS_ITS | Data Portability ---
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 Procedures Surgical History Date Name Laterality Status Provider Name and Address Organization Details Recorded Time 12/13/19 25 Comp Audio with Tymps - 82520 & 74571 completed STEVO JORGENSEN 100 [facility],[address], [address], [facility] 12/12/2024 10:07:00 12/13/19 25 Cerumen removal without microscope bilat completed MARY LIVE PA-C 100 [facility],[address] [address], [place], [address], [facility] 12/12/2024 10:24:28 06/13/20 24 Cerumen removal without microscope bilat completed MARY LIVE PA-C 100 [facility], [place], [address], [place] - [facility] 06/13/2024 11:46:40 12/05/19 24 Cerumen removal without microscope bilat completed MARY LIVE PA-C 100 [facility] 100, [place], [address], [place] - [facility] 12/05/2023 10:24:35 tonsillectomy and adenoidectomy completed Veronica Agudelo [place] - [facility] 06/13/2024 10:22:57 arthroscopy of knee completed Veronica Agudelo [facility] 06/13/2024 10:23:15 Imaging Results None recorded. 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 active Not Available Not Available No t Available rosuvasta tin 20 mg tablet 06/13 completed Medicati on ID: [id number] B rand Name: rosuvast atin Sen d [...] Updated DateTime 12/05/2023 162.56 cm 21.5 kg/m2 40853.05 g Bridget Garcia [place] - [facility] 12/05/2023 09:45:00 Date Recorded Body height Body mass index (BMI) Body weight Provider Name and Address Organization Details Last Updated DateTime 12/12/2024 162.56 cm 22.3 kg/m2 66435.01 g Heide Landry [place] - [facility] 12/12/2024 09:15:59 Date Recorded Body height Body weight Provider Name and Address Organization Details Last Updated DateTime 06/13/2024 162.56 cm 11974.05 g Veronica Agudelo [place] - [facility] 06/13/2024 10:21:57 Social History None recorded. [...] finch [place] - [facility] 12/05/2023 09:45:47 Past Encounters Encounter ID Performer Location Encounter Start Date Encounter Closed Date Diagnosis/Indication Diagnosis SNOMED-CT Code Diagnosis ICD10 Code Diagnosis IMO Codes Diagnosis Note [id number] MARY LIVE PA-C [facility] [address] [address] 12/05/2023 09:29:55 12/05/2023 10:03:47 Impacted cerumen of bilateral ears [id number] 490619 H61.23 Ear examined with hand held otoscope. Cerumen removed bilaterall y with instrument s as needed. [id number] MARY LIVE PA-C [facility] [address] [address] 06/13/2024 10:17:53 06/13/2024 10:58:49 Impacted cerumen of bilateral ears [id number] 334776 H61.23 Ear examined with hand held otoscope. Cerumen removed bilaterall y with instrument s as needed. Sensorineu ral hearing loss of bilateral ears [id number] H90.3 [id number] MARY LIVE PA-C [facility] [address] [address] 12/12/2024 09:09:55 12/12/2024 10:25:47 Impacted cerumen of bilateral ears [id number] 770804 H61.23 Ear examined with hand held otoscope. Cerumen removed bilaterall y with instrument s as needed. Sensorineu ral hearing loss of bilateral ears 406954103 H90.3 [id number] STEVO JORGENSEN [facility] [address] [place] [address] 12/12/2024 10:04:54 12/18/2024 09:00:04 Sensorineural hearing loss of bilateral ears 748742667 H90.3 Audiologic al evaluation results: Right ear: [...] Name 04/29/2025 2 [place] [id number] Marylou Daniels [id number] Marylou Daniels 04/29/2025 1 [place] [facility] Marylou Daniels [id number] Marylou Daniels 12/12/2024 1 [place] [employer] Marylou Daniels [id number] Marylou Daniels 12/12/2024 1 [place] [id number] Marylou Daniels [id number] 51 Marylou Daniels Notes Date Note Type Note Provider Name and Address Organization Details Recorded Time 12/05/2023 text/html ROS as noted in the [facility] 83-year-old female presents for cerumen removal. She has had no acute changes since her last visit. MARY LIVE PA-C [address], [address], [facility] - [facility] 12/05/2023 10:26:20 06/13/2024 text/html ROS as noted in the [facility] 84-year-old female presents for cerumen removal. History of asymmetric sensorineural hearing loss which we are observing with serial audiometric testing. Has noticed no change but does continue to have tinnitus. FRANKLIN HOPKINS MD 100 [facility],[address], [address], [facility] 06/13/2024 12:58:30 12/12/2024 text/html ROS as noted in the [facility] 84-year-old female presents for cerumen removal and updated hearing test. She has a history of sensorineural hearing loss. Feels that is getting worse. FRANKLIN HOPKINS MD [address] [place] [address],[address], [address], [facility] 12/12/2024 12:41:33 OBGyn Episode No OBEpisode recorded.
== END 2025-07-20 14:49 | disposition home or self-care (01) ==
LOC: HO.HMCSH 14:21
PROVIDERS: PCP Internal Medicine; Visit Provider Internal Medicine
DX: F41.1 Generalized anxiety disorder (principal)

== ENCOUNTER → 2025-07-20 14:21 | Outpatient (BNVA) | payer MEDICARE, SELFPAY | PROVIDERS: PCP Internal Medicine; Visit Provider Internal Medicine | DX: R05.9 Cough, unspecified (principal); F41.1 Generalized anxiety disorder; Z13.31 Encounter for screening for depression; Z13.39 Encounter for screening examination for other mental health and behavioral disorders | CPT/HCPCS: 96127; 99212 ==